=== PATIENT | male | born 1955 | race Caucasian/White ===

== ENCOUNTER 2021-10-12 10:03 | Inpatient (IN) | payer MEDICARE ==
[2021-10-12] MEDS ORDERED: SODIUM CHLORIDE 0.9% 1,000 ML IV STA (10:20)
--- NOTE | 2021-10-12 10:24 | ED ---
General Adult HPI - General Chief complaint: Extremity Problem,Nontraumatic Stated complaint: rt leg pain Time Seen by Provider: 10/12/21 10:06 Source: patient, EMS, RN notes reviewed Mode of arrival: EMS Limitations: no limitations - History of Present Illness Initial comments: Patient is a pleasant 66-year-old male presenting to the emergency Department with right calf pain. Onset of symptoms was around 3 weeks ago. Patient has had decreased appetite over the past 5 weeks. Patient feels dry. Patient feels occasionally short of breath that he relates to feeling dry. Patient denies any dyspnea at this time. A fowler states he noticed color change on the leg the last several days. Patient states the foot does not hurt, just the calf. Patient did not notice swelling. Discomfort does increase with touch and movement. No chest pain. No abdominal or back pain. - Related Data Allergies Allergy/AdvReac Type Severity Reaction Status Date / Time No Known Allergies Allergy Verified 10/12/21 10:21 Review of Systems ROS Statement: Those systems with pertinent positive or pertinent negative responses have been documented in the HPI. ROS Other: All systems not noted in ROS Statement are negative. Constitutional: Denies: fever Eyes: Denies: eye pain ENT: Denies: ear pain Respiratory: Reports: as per HPI. Denies: cough Cardiovascular: Denies: chest pain Endocrine: Denies: fatigue Gastrointestinal: Reports: as per HPI. Denies: abdominal pain Genitourinary: Denies: dysuria Musculoskeletal: Denies: back pain Skin: Reports: as per HPI Past Medical History Past Medical History: No Reported History History of Any Multi-Drug Resistant Organisms: None Reported Additional Past Surgical History / Comment(s): Gallbladder removed. Past Psychological History: No Psychological Hx Reported Smoking Status: Former smoker Past Alcohol Use History: Occasional Past Drug Use History: None Reported General Exam Limitations: no limitations General appearance: alert, in no apparent distress Head exam: Present: normocephalic Eye exam: Present: normal appearance Neck exam: Present: normal inspection Respiratory exam: Present: normal lung sounds bilaterally Cardiovascular Exam: Present: regular rate, normal rhythm Expanded Peripheral pulses: 0: Posterior Tibialis (R), Dorsalis Pedis (R), 1+: Posterior Tibialis (L), Dorsalis Pedis (L), 2+: Femoral (R), Femoral (L) GI/Abdominal exam: Present: soft. Absent: distended, tenderness, pulsatile mass Extremities exam: Present: calf tenderness (Moderate to severe in the right side) Neurological exam: Present: alert. Absent: motor sensory deficit Psychiatric exam: Present: normal affect, normal mood Skin exam: Present: cyanosis (Purplish discoloration right lower leg below the knee) Course Vital Signs 10/12/21 10/12/21 10:05 10:11 Temperature 97.6 F Pulse Rate 115 H 117 H Respiratory 20 20 Rate Blood Pressure 126/107 O2 Sat by Pulse 89 L 92 L Oximetry - Reevaluation(s) Reevaluation #1: 10/12/21 11:17 Case discussed with vascular surgeon Dr. Marino who will come evaluate. EKG Findings - EKG Comments: EKG Findings:: Sinus tach 116. CT 118. QRS 104. QT 380. QTC 528. Normal axis. Incomplete right bundle-branch block. PVCs present. Inferior T wave inversion. Medical Decision Making - Medical Decision Making Case also discussed with Dr. Cooper, who will admit. He agrees with vascular consult also request pulmonary consult - Lab Data Result diagrams: 10/12/21 10:23 10/12/21 10:23 Lab Results 10/12/21 10/12/21 10/12/21 Range/Units 10:23 10:23 10:23 WBC 19.2 H (3.8-10.6) k/uL RBC 5.97 H (4.30-5.90) m/uL Hgb 18.9 H (13.0-17.5) gm/dL Hct 55.0 H (39.0-53.0) % MCV 92.2 (80.0-100.0) fL MCH 31.6 (25.0-35.0) pg MCHC 34.3 (31.0-37.0) g/dL RDW 13.0 (11.5-15.5) % Plt Count 511 H (150-450) k/uL MPV 9.4 Neutrophils % 83 % Lymphocytes % 7 % Monocytes % 7 % Eosinophils % 1 % Basophils % 1 % Neutrophils # 15.9 H (1.3-7.7) k/uL Lymphocytes # 1.4 (1.0-4.8) k/uL Monocytes # 1.3 H (0-1.0) k/uL Eosinophils # 0.2 (0-0.7) k/uL Basophils # 0.2 (0-0.2) k/uL Poikilocytosis Slight PT 12.1 H (9.0-12.0) sec INR 1.2 H (<1.2) APTT 20.7 L (22.0-30.0) sec D-Dimer 5.54 H (<0.60) mg/L FEU Sodium 142 (137-145) mmol/L Potassium 4.6 (3.5-5.1) mmol/L Chloride 107 (98-107) mmol/L Carbon Dioxide 20 L (22-30) mmol/L Anion Gap 15 mmol/L BUN 31 H (9-20) mg/dL Creatinine 1.40 H (0.66-1.25) mg/dL Est GFR (CKD-EPI)AfAm 60 (>60 ml/min/1.73 sqM) Est GFR (CKD-EPI)NonAf 51 (>60 ml/min/1.73 sqM) Glucose 163 H (74-99) mg/dL Calcium 9.8 (8.4-10.2) mg/dL Total Bilirubin 2.0 H (0.2-1.3) mg/dL AST 407 H (17-59) U/L ALT 108 H (4-49) U/L Alkaline Phosphatase 93 (38-126) U/L NT-Pro-B Natriuret Pep pg/mL Total Protein 8.0 (6.3-8.2) g/dL Albumin 4.0 (3.5-5.0) g/dL Coronavirus (PCR) (Not Detectd) Influenza Type A RNA (Not Detectd) Influenza Type B (PCR) (Not Detectd) 10/12/21 10/12/21 10/12/21 Range/Units 10:23 10:23 10:23 WBC (3.8-10.6) k/uL RBC (4.30-5.90) m/uL Hgb (13.0-17.5) gm/dL Hct (39.0-53.0) % MCV (80.0-100.0) fL MCH (25.0-35.0) pg MCHC (31.0-37.0) g/dL RDW (11.5-15.5) % Plt Count (150-450) k/uL MPV Neutrophils % % Lymphocytes % % Monocytes % % Eosinophils % % Basophils % % Neutrophils # (1.3-7.7) k/uL Lymphocytes # (1.0-4.8) k/uL Monocytes # (0-1.0) k/uL Eosinophils # (0-0.7) k/uL Basophils # (0-0.2) k/uL Poikilocytosis PT (9.0-12.0) sec INR (<1.2) APTT (22.0-30.0) sec D-Dimer (<0.60) mg/L FEU Sodium (137-145) mmol/L Potassium (3.5-5.1) mmol/L Chloride (98-107) mmol/L Carbon Dioxide (22-30) mmol/L Anion Gap mmol/L BUN (9-20) mg/dL Creatinine (0.66-1.25) mg/dL Est GFR (CKD-EPI)AfAm (>60 ml/min/1.73 sqM) Est GFR (CKD-EPI)NonAf (>60 ml/min/1.73 sqM) Glucose (74-99) mg/dL Calcium (8.4-10.2) mg/dL Total Bilirubin (0.2-1.3) mg/dL AST (17-59) U/L ALT (4-49) U/L Alkaline Phosphatase (38-126) U/L NT-Pro-B Natriuret Pep 372 pg/mL Total Protein (6.3-8.2) g/dL Albumin (3.5-5.0) g/dL Coronavirus (PCR) Detected A (Not Detectd) Influenza Type A RNA Not Detected (Not Detectd) Influenza Type B (PCR) Not Detected (Not Detectd) Disposition Clinical Impression: COVID-19, Arterial insufficiency Disposition: ADMITTED IP TO THIS HOSP Condition: Serious Is patient prescribed a controlled substance at d/c from ED?: No Referrals: Stefano Rice DO [Primary Care Provider] - 1-2 days Decision Time: 11:24
[2021-10-12 10:40] LABS: Basophils # (A) 0.2 k/uL (0-0.2); Basophils % (A) 1 %; Eosinophils # (A) 0.2 k/uL (0-0.7); Eosinophils % (A) 1 %; HGB 18.9 gm/dL (13.0-17.5); Lymphocytes # (A) 1.4 k/uL (1.0-4.8); Lymphocytes % (A) 7 %; MCH 31.6 pg (25.0-35.0); MCHC 34.3 g/dL (31.0-37.0); MCV 92.2 fL (80.0-100.0); Mean Platelet Volume 9.4; Monocytes # (A) 1.3 k/uL (0-1.0); Monocytes % (A) 7 %; Neutrophils # (A) 15.9 k/uL (1.3-7.7); Neutrophils % (A) 83 %; Platelet Count 511 k/uL (150-450); Poikilocytosis Slight; RBC 5.97 m/uL (4.30-5.90); WBC 19.2 k/uL (3.8-10.6)
[2021-10-12 11:01] LABS: Calcium 9.8 mg/dL (8.4-10.2); Potassium 4.6 mmol/L (3.5-5.1)
[2021-10-12 11:03] LABS: INR 1.2 (<1.2); Prothrombin Time 12.1 sec (9.0-12.0)
[2021-10-12 11:09] LABS: Partial Thromboplastin Time 20.7 sec (22.0-30.0)
--- NOTE | 2021-10-12 11:19 | XR ---
EXAMINATION TYPE: XR chest 2V DATE OF EXAM: 10/12/2021 COMPARISON: None HISTORY: 66 year-old male shortness of breath, difficulty breathing, lower extremity swelling. TECHNIQUE: AP and lateral views FINDINGS: Heart is upper limits of normal in size. Patchy peripheral opacities. Posterior basilar opacity on th e lateral view. No pleural effusion. IMPRESSION: 1. Borderline heart size. 2. There are patchy peripheral opacities and also focal posterior basilar opacity. Correlate for poss ible COVID pneumonia.
[2021-10-12] MEDS ORDERED: HEPARIN SODIUM 1,000 UN/ML (10ML VL) IV PRN (11:29)
[2021-10-12] MEDS ORDERED: HEPARIN SODIUM 1,000 UN/ML (10ML VL) IV ONE (11:29)
[2021-10-12] MEDS ORDERED: NALOXONE 0.4 MG/ML 1 ML VIAL IV PRN (11:31)
--- NOTE | 2021-10-12 11:46 | US ---
EXAMINATION TYPE: US venous doppler duplex LE RT DATE OF EXAM: 10/12/2021 11:30 AM COMPARISON: NONE CLINICAL HISTORY: 66-year-old male with pain and discoloration of the right lower extremity. COVID-19 SIDE PERFORMED: Right TECHNIQUE: The lower extremity deep venous system is examined utilizing real time linear array sonog ruslan with graded compression, doppler sonography and color-flow sonography. FINDINGS: VESSELS IMAGED: Common Femoral Vein Deep Femoral Vein Greater Saphenous Vein * Femoral Vein Popliteal Vein Small Saphenous Vein * Proximal Calf Veins (* superficial vessels) Right Leg: Negative for DVT Under Water Assistant notes: Difficult exam due to the patient having difficulty in moving as well as extreme p ain in the extremity. IMPRESSION: Technical exam limitations due to patient movement and pain within the extremity. No DVT visualized i n the right lower extremity from the groin down to the upper calf.
[2021-10-12] MEDS: HEPARIN SOD,PORK IN 0.45% NACL 25,000 UNIT in 0.45% NACL 1 250ML.BAG IV SCH ×2 (11:57→14:07)
--- NOTE | 2021-10-12 11:57 | P.GSCN ---
History of Present Illness Consult date: 10/12/21 History of present illness: Patient is a 66-year-old male who presented to the ER after the urging of his daughter for increasing right lower extremity pain. He states for approximately 2-3 weeks she's been having some increasing pain in his right lower extremity in the past few days he's had significant coloration change. He has pain in his calf. He cannot really feel his foot. He denies any history of arterial disease or surgical interventions in this regard. He does see a doctor relatively regularly. He does not take any home medications nor does he say he is supposed to be on anything. He has had decreased appetite in the past many weeks with shortness of breath as well Past Medical History Past Medical History: No Reported History History of Any Multi-Drug Resistant Organisms: None Reported Additional Past Surgical History / Comment(s): Gallbladder removed. Past Psychological History: No Psychological Hx Reported Smoking Status: Former smoker Past Alcohol Use History: Occasional Past Drug Use History: None Reported Medications and Allergies Home Medications Medication Instructions Recorded Confirmed Type Calcium Carbonate [Tums] 500 - 1,000 mg PO QID PRN 10/12/21 10/12/21 History Multivit-Min/Folic/Vit K/Lycop 1 tab PO DAILY 10/12/21 10/12/21 History [Men's Multivitamin Tablet] Otc Allergy Med (Unknown) 1 tab PO BID 10/12/21 10/12/21 History Allergies Allergy/AdvReac Type Severity Reaction Status Date / Time No Known Allergies Allergy Verified 10/12/21 11:42 Surgical - Exam Vital Signs Temp Pulse Resp BP Pulse Ox 97.6 F 115 H 20 126/107 89 L 10/12/21 10:05 10/12/21 10:05 10/12/21 10:05 10/12/21 10:05 10/12/21 10:05 Gen. is a pleasant cooperative male in no acute distress. HEENT is normocephalic, atraumatic, extraocular motion intact. Mucous membranes are slightly dry. Neck is supple. Trachea is midline. Heart appears tachycardic but relatively regular. Lungs are clear bilaterally. Abdomen is soft, nontender nondistended. Upper and left lower extremity show no clubbing, cyanosis or edema. Palpable radialBilaterally, palpable femoral Poplitealdorsalis pedis and posterior tibial pulsesOn the left. Palpable right femoral pulse. No palpable popliteal or pedal pulses. The right lower extremity from the knee down is cool, mottled. He is able to move his ankle. 5 motor function is diminished. Sensation diminished. He cannot feel palpation of the top of the foot. He does have tenderness to palpation of his calf. Compartments remained soft Results Venous duplex of the right lower extremity shows no DVT - Labs 10/12/21 10:23 10/12/21 10:23 Abnormal Lab Results - Last 24 Hours (Table) 10/12/21 10/12/21 10/12/21 Range/Units 10:23 10:23 10:23 WBC 19.2 H (3.8-10.6) k/uL RBC 5.97 H (4.30-5.90) m/uL Hgb 18.9 H (13.0-17.5) gm/dL Hct 55.0 H (39.0-53.0) % Plt Count 511 H (150-450) k/uL Neutrophils # 15.9 H (1.3-7.7) k/uL Monocytes # 1.3 H (0-1.0) k/uL PT 12.1 H (9.0-12.0) sec INR 1.2 H (<1.2) APTT 20.7 L (22.0-30.0) sec D-Dimer 5.54 H (<0.60) mg/L FEU Carbon Dioxide 20 L (22-30) mmol/L BUN 31 H (9-20) mg/dL Creatinine 1.40 H (0.66-1.25) mg/dL Glucose 163 H (74-99) mg/dL Total Bilirubin 2.0 H (0.2-1.3) mg/dL AST 407 H (17-59) U/L ALT 108 H (4-49) U/L Coronavirus (PCR) (Not Detectd) 10/12/21 Range/Units 10:23 WBC (3.8-10.6) k/uL RBC (4.30-5.90) m/uL Hgb (13.0-17.5) gm/dL Hct (39.0-53.0) % Plt Count (150-450) k/uL Neutrophils # (1.3-7.7) k/uL Monocytes # (0-1.0) k/uL PT (9.0-12.0) sec INR (<1.2) APTT (22.0-30.0) sec D-Dimer (<0.60) mg/L FEU Carbon Dioxide (22-30) mmol/L BUN (9-20) mg/dL Creatinine (0.66-1.25) mg/dL Glucose (74-99) mg/dL Total Bilirubin (0.2-1.3) mg/dL AST (17-59) U/L ALT (4-49) U/L Coronavirus (PCR) Detected A (Not Detectd) Diabetes panel 10/12/21 Range/Units 10:23 Sodium 142 (137-145) mmol/L Potassium 4.6 (3.5-5.1) mmol/L Chloride 107 (98-107) mmol/L Carbon Dioxide 20 L (22-30) mmol/L BUN 31 H (9-20) mg/dL Creatinine 1.40 H (0.66-1.25) mg/dL Glucose 163 H (74-99) mg/dL Calcium 9.8 (8.4-10.2) mg/dL AST 407 H (17-59) U/L ALT 108 H (4-49) U/L Alkaline Phosphatase 93 (38-126) U/L Total Protein 8.0 (6.3-8.2) g/dL Albumin 4.0 (3.5-5.0) g/dL Calcium panel 10/12/21 Range/Units 10:23 Calcium 9.8 (8.4-10.2) mg/dL Albumin 4.0 (3.5-5.0) g/dL Pituitary panel 10/12/21 Range/Units 10:23 Sodium 142 (137-145) mmol/L Potassium 4.6 (3.5-5.1) mmol/L Chloride 107 (98-107) mmol/L Carbon Dioxide 20 L (22-30) mmol/L BUN 31 H (9-20) mg/dL Creatinine 1.40 H (0.66-1.25) mg/dL Glucose 163 H (74-99) mg/dL Calcium 9.8 (8.4-10.2) mg/dL Adrenal panel 10/12/21 Range/Units 10:23 Sodium 142 (137-145) mmol/L Potassium 4.6 (3.5-5.1) mmol/L Chloride 107 (98-107) mmol/L Carbon Dioxide 20 L (22-30) mmol/L BUN 31 H (9-20) mg/dL Creatinine 1.40 H (0.66-1.25) mg/dL Glucose 163 H (74-99) mg/dL Calcium 9.8 (8.4-10.2) mg/dL Total Bilirubin 2.0 H (0.2-1.3) mg/dL AST 407 H (17-59) U/L ALT 108 H (4-49) U/L Alkaline Phosphatase 93 (38-126) U/L Total Protein 8.0 (6.3-8.2) g/dL Albumin 4.0 (3.5-5.0) g/dL Assessment and Plan Assessment: [place] 2 Acute Limb ischemia on the right, likely the distal SFA/popliteal/Infrapopliteal artery Positive for coronavirus Plan: Long discussion had with the patient is daughter at the bedside, likely arterial occlusion due to coronavirus. We will check for arrhythmia, atrial fibrillation for rule out. We will plan to take him urgently to the [facility] for TPA thrombo lysis. Risks and benefits were both discussed as well as the need for close monitoring and possible further surgical interventions. We also discussed the significance threatened limb and the possibility of needing an amputation but at this time we'll attempt aggressive revascularization. They seemingly understand and are willing to proceed as such. He will need ICU bed and continued aggressive supportive care otherwise. We also discussed his CODE STATUS, he would like to be full code at this time, he would like everything done to preserve his life
[2021-10-12] MEDS: DEXAMETHASONE SOD PHOSPHATE 10 MG/ML 1 ML VIAL IVP SCH (11:59)
[2021-10-12] MEDS: SODIUM CHLORIDE 0.9% 1,000 ML IV SCH ×2 (11:59→14:06)
[2021-10-12] MEDS ORDERED: ALTEPLASE 2 MG VIAL (CATHFLO) IV ONE (12:05)
[2021-10-12] MEDS ORDERED: IV FLUID CONTINUATION 950 ML IV ONE (12:20)
[2021-10-12] MEDS ORDERED: LIDOCAINE 1% INJ 10MG/ML (20 ML MDV) SQ ONE (12:31)
[2021-10-12] MEDS ORDERED: fentaNYL (PF) 50 MCG/ML 2 ML AMP ONE (13:08)
[2021-10-12] MEDS: fentaNYL (PF) 50 MCG/ML 2 ML AMP IV ONE ×2 (13:10→13:21)
[2021-10-12] MEDS ORDERED: ALTEPLASE BOLUS 1 MG/1 ML SYRINGE IVP ONE (13:25)
--- NOTE | 2021-10-12 14:02 | IR ---
EXAMINATION TYPE: IR transcath infusion therapy DATE OF EXAM: 10/12/2021 COMPARISON: NONE HISTORY: Fluoroscopy time. Fluoroscopy was provided to the referring clinician.
[2021-10-12] MEDS: ALTEPLASE 10 MG in SODIUM CHLORIDE 0.9% 100 ML IV ONE ×2 (14:06→21:39)
[2021-10-12] MEDS: ASCORBIC ACID 500 MG TAB PO SCH ×2 (14:10→20:26)
[2021-10-12] MEDS: ZINC SULFATE 220 MG CAP PO SCH (14:10)
[2021-10-12] MEDS: CHOLECALCIFEROL 25 MCG (1000 IU) TABLET PO SCH (14:10)
[2021-10-12] MEDS ORDERED: ONDANSETRON 4 MG/2 ML VIAL IVP PRN (14:22)
--- NOTE | 2021-10-12 14:22 | P.OP ---
Date of Procedure: 10/12/21 Description of Procedure: Preoperative diagnosis: acute limb ischemia right lower extremity, COVID + Postoperative diagnosis: Same, occlusion of the superficial femoral artery down the entirety of the leg Procedure: [#1 ultrasound guided left common femoral artery access #2 left iliofemoral angiogram #3 right lower extremity angiogram #4 initiation of thrombolysis] Surgeon: April Marino D.O. EBL: [Less than 10 mL] IV fluids: [See records] Urine output: [Not measured] Drains: [None] Complications: [None immediately apparent] Condition: [Stable to critical] Operative indication and findings: [Patient is a 66-year-old on vaccinated male who presented to the ER after 5 or 6 weeks of malaise, decreased appetite and worsening right lower extremity pain. He states that his right lower extremity began having pain about 3 weeks ago and then over the weekend had increasing color changes in coolness. He finally presented at the urging of his daughter. He was found to be positive for coronavirus. He had palpable femoral pulses bilaterally. On the left he had a palpable popliteal, dorsalis pedis and posterior tibial pulse. He had no palpable popliteal or pedal pulses on the right. For this was operative thrombolysis given he still move his ankle although he did have some fine motor changes. Risks and benefits were discussed. The family understood and were willing to proceed as such] Procedure in detail: [The patient was taken to the special suite and placed in supine position. Bilateral groins are prepped and draped in usual sterile fashion. A preprocedure timeout was performed, all parties are in agreement. Using ultrasound left common femoral artery was identified. The skin overlying was anesthetized 1% lidocaine plain. Using a micro-access needle the artery was accessed. Seldinger technique was used and a 6-German sheath was placed. A left iliofemoral angiogram was performed showing no evidence of occlusion or significant stenosis. Catheters wires were used to access the right iliac system. There was an acute angle in the bifurcation causing some difficulty. The right iliac system was accessed an angiogram was performed. This revealed a patent iliac, external iliac and common femoral artery. The internal iliac appeared occluded. The profunda seemed widely patent and very robust in size. There was no visualization of any blood flow beyond the superficial femoral artery takeoff. The superficial femoral artery, the popliteal and tibial vessels all appeared occluded no evidence of reconstitution. Catheters and wires were used and subsequently a long 6-German sheath was placed into the external iliac artery. Catheters and wires and used to cross the superficial femoral artery, there was a small area of possible filling via collateral at the adductor canal. When this was visualized there were branch and collateral vessels appearing to arise from this area confirming some degree of luminal gain. It was decided to place an EKOS thrombolysis catheter was placed. The sheath was flushed and sutured in place. Dressings were placed. The patient was of the machine. He was allowed to transfer to the ICU in stable condition for monitor thrombolysis]
[2021-10-12 15:17] LABS: Basophils # (A) 0.1 k/uL (0-0.2); Basophils % (A) 1 %; Eosinophils # (A) 0.1 k/uL (0-0.7); Eosinophils % (A) 1 %; HCT 51.4 % (39.0-53.0); HGB 17.3 gm/dL (13.0-17.5); Lymphocytes # (A) 0.7 k/uL (1.0-4.8); Lymphocytes % (A) 4 %; MCH 31.4 pg (25.0-35.0); MCHC 33.8 g/dL (31.0-37.0); Mean Platelet Volume 9.3; Monocytes # (A) 0.7 k/uL (0-1.0); Monocytes % (A) 4 %; Neutrophils # (A) 17.2 k/uL (1.3-7.7); Neutrophils % (A) 91 %; Platelet Count 422 k/uL (150-450); Poikilocytosis Slight; RBC 5.53 m/uL (4.30-5.90)
[2021-10-12 15:25] LABS: INR 1.3 (<1.2); Prothrombin Time 13.2 sec (9.0-12.0)
[2021-10-12 15:29] LABS: Potassium 4.4 mmol/L (3.5-5.1)
--- NOTE | 2021-10-12 16:24 | P.CNPUL ---
History of Present Illness Consult date: 10/12/21 Reason for consult: pneumonia Chief complaint: Right lower extremity pain History of present illness: This is a 66-year-old white male, no major medical illnesses, patient is not vaccinated. Patient has been sick at home for the last 3 weeks. Symptoms have been mostly intermittent cough, shortness of breath, and over the last 2 weeks has been noticing increased pain and swelling in the right lower extremity. In the past few days, patient has been noticing bluish discoloration of the foot. And he was also experiencing pain in the calf region. Patient was brought into the ER, he was found to have positive COVID-19 PCR. Chest x-ray showed patchy peripheral opacities consistent with COVID-19 pneumonia patient was also found to have acute limb ischemia of the right lower extremity consistent with superficial femoral artery thrombosis requiring surgical intervention, patient was seen by vascular surgery on consultation, underwent left iliofemoral angiogram, right lower extremity angiogram and initiation of thrombolysis hoping to salvage the right foot. Postoperatively, patient was admitted to the ICU, and I was asked to see him on consultation. Patient is on 4 L nasal cannula O2 saturation 94%, he is not a great historian, patient was placed on the COVID-19 cocktail, and obviously he is out of the window for Remdesivir, and he does not qualify for Baricitinib. She was noted to have leukocytosis with WBC count of 19.0 hemoglobin of 17.3 d-dimer was 5.54 normal electrolytes except for low bicarb of 17 and elevated creatinine of 1.40 consistent with acute kidney injury, lactic acid was 3.6 improved with hydration went down to 1.7. Liver enzymes were also noted to be elevated with bilirubin of 2.0 AST of 407 and ALT of 108. Review of Systems Constitutional: Weakness fatigue fever HEENT: Negative Pulmonary: Cough and shortness of breath Cardiac: Negative GI: Negative Genitourinary: Negative Musculoskeletal right lower extremity pain and swelling as well as discoloration refer to HPI Endocrine: Negative Hematologic: Negative Psychiatric: Negative Skin: Negative Neurologic: Past Medical History Past Medical History: Prostate Disorder Additional Past Medical History / Comment(s): Pt tested covid + at [facility] ER on 10/12/21, pt may have had pneumonia years ago. History of Any Multi-Drug Resistant Organisms: None Reported Past Surgical History: Cholecystectomy Additional Past Surgical History / Comment(s): R knee arthroscopy, colonoscopy Past Anesthesia/Blood Transfusion Reactions: No Reported Reaction Smoking Status: Former smoker - Past Family History Father Family Medical History: No Reported History Additional Family Medical History / Comment(s): Father was healthy Mother Family Medical History: No Reported History Additional Family Medical History / Comment(s): Mother was healthy Medications and Allergies Home Medications Medication Instructions Recorded Confirmed Type Calcium Carbonate [Tums] 500 - 1,000 mg PO QID PRN 10/12/21 10/12/21 History Multivit-Min/Folic/Vit K/Lycop 1 tab PO DAILY 10/12/21 10/12/21 History [Men's Multivitamin Tablet] Otc Allergy Med (Unknown) 1 tab PO BID 10/12/21 10/12/21 History Allergies Allergy/AdvReac Type Severity Reaction Status Date / Time No Known Allergies Allergy Verified 10/12/21 11:42 Physical Exam Vitals: Vital Signs Temp Pulse Resp BP Pulse Ox 10/12/21 16:00 98 F 107 H 20 188/79 94 L 10/12/21 15:30 102 H 23 163/88 94 L 10/12/21 15:15 106 H 27 H 157/89 93 L 10/12/21 15:00 106 H 24 141/107 94 L 10/12/21 14:45 107 H 21 143/114 94 L 10/12/21 14:30 105 H 15 165/88 93 L 10/12/21 14:15 108 H 11 L 166/87 90 L 10/12/21 14:00 104 H 19 171/90 89 L 10/12/21 13:48 108 H 22 89 L 10/12/21 12:00 109 H 18 139/78 94 L 10/12/21 10:11 117 H 20 92 L 10/12/21 10:05 97.6 F 115 H 20 126/107 89 L Intake and Output 10/12/21 10/12/21 10/12/21 06:59 14:59 22:59 Intake Total 220 140 Balance 220 140 Intake: IV 220 140 Sodium Chloride 0.9% 1, 70 140 000 ml @ 70 mls/hr IV . [id number] [facility] Rx#:[id number] Other: Voiding Method Urinal Urinal Weight 108.862 kg Physical Exam revealed a 66-year-old white male on few liters nasal cannula, in no distress. Head: Atraumatic, normocephalic. HEENT:[Neck is supple.] [No neck masses.] [No thyromegaly.] [No JVD.] Chest: [Symmetrical chest expansion, crackles at the bases. Cardiac Exam: [Normal S1 and S2, no S3 gallop, no murmur.] Abdomen: [Soft, nontender, no megaly, no rebound, no guarding, normal bowel sounds.] Extremities: Right foot is noted to be bluish The right lower extremity from the knee down is cool, mottled. He is able to move his ankle. Neurological Exam: [No focal neurologic deficit.] Alert oriented 3 Psychiatric: Normal mood blunt affect, normal mental status examination. Results - Laboratory Findings CBC and BMP: 10/12/21 15:01 10/12/21 15:01 PT/INR, D-dimer PT 13.2 sec (9.0-12.0) H 10/12/21 15:01 INR 1.3 (<1.2) H 10/12/21 15:01 D-Dimer 5.54 mg/L FEU (<0.60) H 10/12/21 10:23 Abnormal lab findings: Abnormal Labs 10/12/21 10/12/21 10/12/21 10:23 10:23 10:23 WBC 19.2 H RBC 5.97 H Hgb 18.9 H Hct 55.0 H Plt Count 511 H Neutrophils # 15.9 H Lymphocytes # Monocytes # 1.3 H PT 12.1 H INR 1.2 H APTT 20.7 L Fibrinogen D-Dimer 5.54 H Chloride Carbon Dioxide 20 L BUN 31 H Creatinine 1.40 H Glucose 163 H Plasma Lactic Acid Yonatan Total Bilirubin 2.0 H AST 407 H ALT 108 H Coronavirus (PCR) 10/12/21 10/12/21 10/12/21 10:23 10:23 11:38 WBC RBC Hgb Hct Plt Count Neutrophils # Lymphocytes # Monocytes # PT INR APTT Fibrinogen 521 H D-Dimer Chloride Carbon Dioxide BUN Creatinine Glucose Plasma Lactic Acid Yonatan 3.6 H* Total Bilirubin AST ALT Coronavirus (PCR) Detected A 10/12/21 10/12/21 10/12/21 15:01 15:01 15:01 WBC 19.0 H RBC Hgb Hct Plt Count Neutrophils # 17.2 H Lymphocytes # 0.7 L Monocytes # PT 13.2 H INR 1.3 H APTT Fibrinogen D-Dimer Chloride 109 H Carbon Dioxide 17 L BUN 29 H Creatinine Glucose 178 H Plasma Lactic Acid Yonatan Total Bilirubin AST ALT Coronavirus (PCR) - Diagnostic Findings Chest x-ray: image reviewed (As noted in HPI) Assessment and Plan Assessment: Impression: Acute right lower extremity ischemia secondary to arterial thrombosis, patient is status post left iliofemoral angiogram, right lower extremity angiogram and presently on thrombolysis. Acute hypoxic respiratory failure secondary to COVID-19 pneumonia Hypercoagulable state and arterial thrombosis secondary to COVID-19 pneumonia/infection Acute lactic acidosis secondary to limb ischemia Acute kidney injury , improving with hydration. Recommendation: Continue thrombolysis Patient placed on the COVID-19 cocktail. Continue anticoagulation therapy as per vascular surgery on the case. Patient is out of the window for Remdesivir, and he is not a candidate for Baricitinib at this point in time. We will continue to monitor the patient in the ICU GI and DVT prophylaxis Will follow. Time with Patient: Greater than 30
[2021-10-12] MEDS: HYDROmorphone 1 MG/ML 1 ML SYRINGE IVP PRN ×2 (16:51→21:59)
[2021-10-12 20:28] LABS: Basophils # (A) 0.1 k/uL (0-0.2); Basophils % (A) 0 %; Eosinophils % (A) 0 %; HCT 52.2 % (39.0-53.0); HGB 17.5 gm/dL (13.0-17.5); Hypochromasia Slight; Lymphocytes # (A) 0.8 k/uL (1.0-4.8); Lymphocytes % (A) 4 %; MCH 31.7 pg (25.0-35.0); MCHC 33.4 g/dL (31.0-37.0); MCV 94.9 fL (80.0-100.0); Mean Platelet Volume 8.8; Monocytes % (A) 5 %; Neutrophils % (A) 89 %; Platelet Count 390 k/uL (150-450); Poikilocytosis Slight; RDW 12.9 % (11.5-15.5); WBC 19.2 k/uL (3.8-10.6)
--- NOTE | 2021-10-12 22:45 | P.HPIM ---
History of Present Illness H&P Date: 10/12/21 Chief Complaint: Right leg pain This is a 66-year-old patient who follows Dr. Stefano Miguel. He presented to ER earlier today with a right calf pain. Symptoms have been coming on for about 3 weeks. Patient is also had decreased appetite for some time. Complaint of feeling dry in the ER. Some shortness of breath. He did also had discoloration to the right leg for several days. Having pain in the calf. No chest pain. ER physician had called me thinking this was an arterial compromise. Dr. Marino from vascular was consulted. The patient down to the operating room. Patient was discovered to have occlusion of the superficial femoral artery down to the integrity of the leg. Left common femoral artery was accessed. Angiogram was done. And thrombolysis was started. Patient's currently getting TPN heparin drip. In the ICU. Patient is received pain medications and is rather lethargic. Not really able to give much of a history currently. According to the nurse doesn't Doppler in the left leg. Dopplers also present in the right leg up to the knee not below the knee. Patient tested positive for COVID in the ER. Review of systems cannot be obtained as patient is very sleepy lethargic from medications Past medical history to include: Prostate disorder Social history: Patient started smoking as a teen and stopped in 1995. No alcohol. [place]. 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 Family history: Reviewed, noncontributory to presentation Physical examination: VITAL SIGNS: 98.6, 1 or 2, 14, 144/79, 93% on nasal cannula GENERAL: BMI 33.5, laying in bed lethargic arousable. EYES: Pupils equal. Conjunctiva normal. HEENT: External appearance of nose and ears normal, oral cavity grossly normal. NECK: JVD not raised; masses not palpable. HEART: First and second heart sounds are normal; no edema. LUNGS: Respiratory rate normal; decreased breath sounds. ABDOMEN: Soft, nontender, liver spleen not palpable, no masses palpable. Patient has EKOS in the left groin. Marino catheter PSYCH: Unable to assess, sedated l. EXTREMITY: Mottling of the right lower limb below the knee down to the foot. Not able to get a pulse NEUROLOGICAL: [Cranial nerves grossly intact; no facial asymmetry, LYMPHATICS: No lymph nodes palpable in the axilla and neck INVESTIGATIONS, reviewed in the clinical context: White count 19.2 hemoglobin 18.9 platelets 511 2142 BUN 31 creatinine 1.40, repeat 1.19 Lactic acid 3.6 AST 407 ALT 108 Pro-calcitonin 0.14 Coronavirus [PCR]: Detected EKG tracing personally reviewed by me-normal sinus rhythm. Right bundle branch block. ST-T wave changes. PVCs. Assessment and plan: -This is a patient who presents with pain in the right calf which is going on for a few days progressively getting worse. Appears to have had acute on chronic arterial occlusion. Especially of the superficial femoral artery. Patient has aEKOS placed through the left groin. Getting TPA and heparin.. Patient being followed by vascular surgeon Dr. Marino. -IV heparin and TPA infusion Follow CBC -Right bundle branch block pattern -Metabolic acidosis Sodium bicarbonate by mouth -Acute kidney injury, possibly ATN IV fluids. -Hepatitis, chronicity unknown Acute hepatitis panel. Repeat labs. -Acute hypoxic respiratory failure from COVID 19 Pulse ox was 89% on room air on presentation. IV dexamethasone -Acute COVID 19 pneumonitis Vitamin C vitamin D. Primary consultation Dexamethasone. Vitamin C. Vitamin D. Consultation to pulmonary and vascular. Patient on IV heparin and TPA dripCarlos A Degroot. Liver ultrasound. 2-D echo. IV fluids. Repeat CMP, CBC. Acute hepatitis panel Patient currently in the ICU. Given the complexity and severity of patient's condition expect the patient to be in the hospital at least for 2 overnights Past Medical History Past Medical History: Prostate Disorder Additional Past Medical History / Comment(s): [facility], pt may have had pneumonia years ago. History of Any Multi-Drug Resistant Organisms: None Reported Past Surgical History: Cholecystectomy Additional Past Surgical History / Comment(s): R knee arthroscopy, colonoscopy Past Anesthesia/Blood Transfusion Reactions: No Reported Reaction Smoking Status: Former smoker - Past Family History Father Family Medical History: No Reported History Additional Family Medical History / Comment(s): Father was healthy Mother Family Medical History: No Reported History Additional Family Medical History / Comment(s): Mother was healthy Medications and Allergies Home Medications Medication Instructions Recorded Confirmed Type Calcium Carbonate [Tums] 500 - 1,000 mg PO QID PRN 10/12/21 10/12/21 History Multivit-Min/Folic/Vit K/Lycop 1 tab PO DAILY 10/12/21 10/12/21 History [Men's Multivitamin Tablet] Otc Allergy Med (Unknown) 1 tab PO BID 10/12/21 10/12/21 History Allergies Allergy/AdvReac Type Severity Reaction Status Date / Time No Known Allergies Allergy Verified 10/12/21 11:42 Physical Exam Vitals: Vital Signs Temp Pulse Resp BP Pulse Ox 10/12/21 22:00 105 H 28 H 157/87 91 L 10/12/21 21:30 107 H 10 L 153/82 91 L 10/12/21 21:00 99 16 160/92 92 L 10/12/21 20:30 90 14 185/99 93 L 10/12/21 20:00 98.6 F 102 H 14 144/79 93 L 10/12/21 19:30 93 12 134/91 93 L 10/12/21 19:00 97 13 160/76 92 L 10/12/21 18:30 92 18 148/83 90 L 10/12/21 18:00 101 H 12 141/80 93 L 10/12/21 17:30 96 12 150/84 93 L 10/12/21 17:00 98 7 L 154/102 94 L 10/12/21 16:30 6 L 174/97 94 L 10/12/21 16:00 98 F 107 H 20 188/79 94 L 10/12/21 15:30 102 H 23 163/88 94 L 10/12/21 15:15 106 H 27 H 157/89 93 L 10/12/21 15:00 106 H 24 141/107 94 L 10/12/21 14:45 107 H 21 143/114 94 L 10/12/21 14:30 105 H 15 165/88 93 L 10/12/21 14:15 108 H 11 L 166/87 90 L 10/12/21 14:00 104 H 19 171/90 89 L 10/12/21 13:48 108 H 22 89 L 10/12/21 12:00 109 H 18 139/78 94 L 10/12/21 10:11 117 H 20 92 L 10/12/21 10:05 97.6 F 115 H 20 126/107 89 L Intake and Output 12/28/21 12/28/21 12/28/21 06:59 14:59 22:59 Intake Total 220 565.5 Output Total 450 Balance 220 115.5 Intake: IV 220 490 Sodium Chloride 0.9% 1, 70 490 000 ml @ 70 mls/hr IV . [id number] [facility] Rx#:[id number] Intake, IV Titration 75.5 Amount Alteplase 10 mg In Sodium 75.5 Chloride 0.9% 100 ml @ 1 MG/HR 10 mls/hr IV .Q10H [facility] Rx#:[id number] Output: Urine 450 Other: Voiding Method Urinal Urinal Weight 108.862 kg Results CBC & Chem 7: 10/12/21 20:17 10/12/21 15:01 Labs: Abnormal Lab Results - Last 24 Hours (Table) 10/12/21 10/12/21 10/12/21 Range/Units 10:23 10:23 10:23 WBC 19.2 H (3.8-10.6) k/uL RBC 5.97 H (4.30-5.90) m/uL Hgb 18.9 H (13.0-17.5) gm/dL Hct 55.0 H (39.0-53.0) % Plt Count 511 H (150-450) k/uL Neutrophils # 15.9 H (1.3-7.7) k/uL Lymphocytes # (1.0-4.8) k/uL Monocytes # 1.3 H (0-1.0) k/uL PT 12.1 H (9.0-12.0) sec INR 1.2 H (<1.2) APTT 20.7 L (22.0-30.0) sec Fibrinogen (200-500) mg/dL D-Dimer 5.54 H (<0.60) mg/L FEU Chloride (98-107) mmol/L Carbon Dioxide 20 L (22-30) mmol/L BUN 31 H (9-20) mg/dL Creatinine 1.40 H (0.66-1.25) mg/dL Glucose 163 H (74-99) mg/dL Plasma Lactic Acid Yonatan (0.7-2.0) mmol/L Total Bilirubin 2.0 H (0.2-1.3) mg/dL AST 407 H (17-59) U/L ALT 108 H (4-49) U/L Procalcitonin (0.02-0.09) ng/mL Coronavirus (PCR) (Not Detectd) 10/12/21 10/12/21 10/12/21 Range/Units 10:23 10:23 11:38 WBC (3.8-10.6) k/uL RBC (4.30-5.90) m/uL Hgb (13.0-17.5) gm/dL Hct (39.0-53.0) % Plt Count (150-450) k/uL Neutrophils # (1.3-7.7) k/uL Lymphocytes # (1.0-4.8) k/uL Monocytes # (0-1.0) k/uL PT (9.0-12.0) sec INR (<1.2) APTT (22.0-30.0) sec Fibrinogen 521 H (200-500) mg/dL D-Dimer (<0.60) mg/L FEU Chloride (98-107) mmol/L Carbon Dioxide (22-30) mmol/L BUN (9-20) mg/dL Creatinine (0.66-1.25) mg/dL Glucose (74-99) mg/dL Plasma Lactic Acid Yonatan 3.6 H* (0.7-2.0) mmol/L Total Bilirubin (0.2-1.3) mg/dL AST (17-59) U/L ALT (4-49) U/L Procalcitonin (0.02-0.09) ng/mL Coronavirus (PCR) Detected A (Not Detectd) 10/12/21 10/12/21 10/12/21 Range/Units 15:01 15:01 15:01 WBC (3.8-10.6) k/uL RBC (4.30-5.90) m/uL Hgb (13.0-17.5) gm/dL Hct (39.0-53.0) % Plt Count (150-450) k/uL Neutrophils # (1.3-7.7) k/uL Lymphocytes # (1.0-4.8) k/uL Monocytes # (0-1.0) k/uL PT 13.2 H (9.0-12.0) sec INR 1.3 H (<1.2) APTT (22.0-30.0) sec Fibrinogen (200-500) mg/dL D-Dimer (<0.60) mg/L FEU Chloride 109 H (98-107) mmol/L Carbon Dioxide 17 L (22-30) mmol/L BUN 29 H (9-20) mg/dL Creatinine (0.66-1.25) mg/dL Glucose 178 H (74-99) mg/dL Plasma Lactic Acid Yonatan (0.7-2.0) mmol/L Total Bilirubin (0.2-1.3) mg/dL AST (17-59) U/L ALT (4-49) U/L Procalcitonin 0.14 H (0.02-0.09) ng/mL Coronavirus (PCR) (Not Detectd) 10/12/21 10/12/21 Range/Units 15:01 20:17 WBC 19.0 H 19.2 H (3.8-10.6) k/uL RBC (4.30-5.90) m/uL Hgb (13.0-17.5) gm/dL Hct (39.0-53.0) % Plt Count (150-450) k/uL Neutrophils # 17.2 H 17.0 H (1.3-7.7) k/uL Lymphocytes # 0.7 L 0.8 L (1.0-4.8) k/uL Monocytes # (0-1.0) k/uL PT (9.0-12.0) sec INR (<1.2) APTT (22.0-30.0) sec Fibrinogen (200-500) mg/dL D-Dimer (<0.60) mg/L FEU Chloride (98-107) mmol/L Carbon Dioxide (22-30) mmol/L BUN (9-20) mg/dL Creatinine (0.66-1.25) mg/dL Glucose (74-99) mg/dL Plasma Lactic Acid Yonatan (0.7-2.0) mmol/L Total Bilirubin (0.2-1.3) mg/dL AST (17-59) U/L ALT (4-49) U/L Procalcitonin (0.02-0.09) ng/mL Coronavirus (PCR) (Not Detectd) Thrombosis Risk Factor Assmnt - Choose All That Apply Any of the Below Risk Factors Present?: Yes Each Factor Represents 1 point: Obesity (BMI >25) Other Risk Factors: Yes Each Risk Factor Represents 2 Points: Age 61-74 years Other congenital or acquired thrombophilia - If yes, enter type in comment: No Thrombosis Risk Factor Assessment Total Risk Factor Score: 3 Thrombosis Risk Factor Assessment Level: Moderate Risk
[2021-10-13] MEDS: SODIUM CHLORIDE 0.9% 1,000 ML IV SCH ×6 (01:08→19:35)
[2021-10-13] MEDS: HYDROmorphone 1 MG/ML 1 ML SYRINGE IVP PRN ×2 (03:28→08:34)
[2021-10-13 03:31] LABS: Basophils # (A) 0.1 k/uL (0-0.2); Basophils % (A) 1 %; Eosinophils % (A) 0 %; HCT 49.5 % (39.0-53.0); HGB 16.3 gm/dL (13.0-17.5); Hypochromasia Slight; Lymphocytes # (A) 0.8 k/uL (1.0-4.8); Lymphocytes % (A) 4 %; MCH 31.8 pg (25.0-35.0); MCV 96.5 fL (80.0-100.0); Mean Platelet Volume 8.4; Monocytes # (A) 1.2 k/uL (0-1.0); Monocytes % (A) 6 %; Neutrophils # (A) 16.9 k/uL (1.3-7.7); Neutrophils % (A) 87 %; Platelet Count 303 k/uL (150-450); Poikilocytosis Slight; RBC 5.13 m/uL (4.30-5.90); RDW 13.1 % (11.5-15.5); WBC 19.5 k/uL (3.8-10.6)
[2021-10-13] MEDS ORDERED: ALTEPLASE 10 MG in SODIUM CHLORIDE 0.9% 100 ML IA ONE (06:15)
--- NOTE | 2021-10-13 07:46 | US ---
EXAMINATION TYPE: US abdomen limited DATE OF EXAM: 10/13/2021 COMPARISON: NONE CLINICAL HISTORY: Elevated liver enzymes. EXAM MEASUREMENTS: Liver Length: 15.0 cm Gallbladder Wall: not identified CBD: 0.6 cm Right Kidney: 9.5 x 5.1 x 5.7 cm Technically difficult exam performed portably in ICU on Covid patient. There is electrical interferen ce noted on images. Unable to identify gallbladder, patient was able to voice that he has a gallbladd er. Pancreas: Obscured by bowel gas Liver: visualized portions wnl Gallbladder: not identified CBD: wnl Right Kidney: No hydronephrosis or masses seen IMPRESSION: 1. Limited exam. 2. No obvious abnormalities identified on this right upper quadrant abdomen ultrasound
[2021-10-13] MEDS: ZINC SULFATE 220 MG CAP PO SCH (08:17)
[2021-10-13] MEDS: CHOLECALCIFEROL 25 MCG (1000 IU) TABLET PO SCH (08:18)
[2021-10-13] MEDS: ASCORBIC ACID 500 MG TAB PO SCH ×2 (08:18→20:09)
[2021-10-13] MEDS: PANTOPRAZOLE 40 MG/10 ML VIAL IV SCH (08:18)
[2021-10-13] MEDS: DEXAMETHASONE SOD PHOSPHATE 10 MG/ML 1 ML VIAL IVP SCH (08:18)
[2021-10-13 09:04] LABS: Albumin 3.2 g/dL (3.5-5.0); Calcium 8.6 mg/dL (8.4-10.2); Potassium 4.5 mmol/L (3.5-5.1); Total Bilirubin 1.6 mg/dL (0.2-1.3); Total Protein 6.7 g/dL (6.3-8.2)
[2021-10-13 09:06] LABS: Basophils # (A) 0.1 k/uL (0-0.2); Basophils % (A) 1 %; Eosinophils % (A) 0 %; HCT 52.1 % (39.0-53.0); HGB 16.5 gm/dL (13.0-17.5); Hypochromasia Marked; Lymphocytes # (A) 0.9 k/uL (1.0-4.8); Lymphocytes % (A) 4 %; MCH 32.4 pg (25.0-35.0); MCHC 31.7 g/dL (31.0-37.0); Macrocytosis Slight; Mean Platelet Volume 9.4; Monocytes # (A) 1.1 k/uL (0-1.0); Monocytes % (A) 6 %; Neutrophils # (A) 16.9 k/uL (1.3-7.7); Neutrophils % (A) 87 %; Platelet Count 275 k/uL (150-450); Poikilocytosis Slight; RDW 13.7 % (11.5-15.5); WBC 19.3 k/uL (3.8-10.6)
[2021-10-13 09:07] LABS: Fibrinogen 278 mg/dL (200-500); MCV 102.1 fL (80.0-100.0)
--- NOTE | 2021-10-13 09:59 | ECHOF ---
Referral Reason:Abnormal EKG MEASUREMENTS -------- HEIGHT: 180.3 cm WEIGHT: 102.5 kg BP: RAP: 5.00 mmHg RVSP: 13.33 mmHg FINDINGS -------- Limited Study Limited study due to covid 19 exposure. Overall left ventricular systolic function is low-normal with, an EF between 50 - 55 %. Lumason used There is a small pericardial effusion is located near the right ventricle. CONCLUSIONS -------- 1. Limited study due to covid 19 exposure. 2. Overall left ventricular systolic function is low-normal with, an EF between 50 - 55 %. 3. There is a small pericardial effusion is located near the right ventricle. HEAD SWAMPER: Eva Carlson RDCS
[2021-10-13] MEDS ORDERED: IV FLUID CONTINUATION 150 ML IV ONE (13:05)
--- NOTE | 2021-10-13 13:07 | P.PN ---
Subjective Progress Note Date: 10/13/21 Principal diagnosis: Acute right lower extremity ischemia/secondary to arterial thrombosis, and subacute COVID-19 pneumonia This is a 66-year-old white male, no major medical illnesses, patient is not vaccinated. Patient has been sick at home for the last 3 weeks. Symptoms have been mostly intermittent cough, shortness of breath, and over the last 2 weeks has been noticing increased pain and swelling in the right lower extremity. In the past few days, patient has been noticing bluish discoloration of the foot. And he was also experiencing pain in the calf region. Patient was brought into the ER, he was found to have positive COVID-19 PCR. Chest x-ray showed patchy peripheral opacities consistent with COVID-19 pneumonia patient was also found to have acute limb ischemia of the right lower extremity consistent with superficial femoral artery thrombosis requiring surgical intervention, patient was seen by vascular surgery on consultation, underwent left iliofemoral angiogram, right lower extremity angiogram and initiation of thrombolysis hoping to salvage the right foot. Postoperatively, patient was admitted to the ICU, and I was asked to see him on consultation. Patient is on 4 L nasal cannula O2 saturation 94%, he is not a great historian, patient was placed on the COVID-19 cocktail, and obviously he is out of the window for Remdesivir, and he does not qualify for Baricitinib. She was noted to have leukocytosis with WBC count of 19.0 hemoglobin of 17.3 d-dimer was 5.54 normal electrolytes except for low bicarb of 17 and elevated creatinine of 1.40 consistent with acute kidney injury, lactic acid was 3.6 improved with hydration went down to 1.7. Liver enzymes were also noted to be elevated with bilirubin of 2.0 AST of 407 and ALT of 108. Reevaluated today on 10/13/21, patient remains in the ICU, continues to have significant ischemic changes of the right foot with seems to be extremely cold, mottled, blue, all the way to the midcalf region. This is in spite of thrombolytics and in spite of heparin. Patient was seen by vascular surgery again today, and I believe he is going back to the catheterization lab, and should have TPA recheck. Other based on my clinical assessment, I have a feeling the patient is going to likely require amputation. Urinary-zepeda the patient is about the same, remains on 4 L nasal cannula, and his O2 saturation is 93%. Does not seem to be in any pulmonary distress. His electrolytes are normal bicarb is 20 WBC count is 19.3. Objective - Vital Signs Vital signs: Vital Signs Temp 99.1 F 10/13/21 08:00 Pulse 90 10/13/21 11:30 Resp 15 10/13/21 12:00 BP 152/81 10/13/21 12:00 Pulse Ox 93 L 10/13/21 12:00 Intake & Output 10/12/21 10/13/21 10/13/21 18:59 06:59 18:59 Intake Total 500 1420.5 500 Output Total 790 150 Balance 500 630.5 350 Weight 108.862 kg 102.8 kg Intake: IV 500 1345 500 Sodium Chloride 0.9% 1, 350 1345 125 000 ml @ 100 mls/hr IV . Q10H [facility] Rx#:[id number] Sodium Chloride 0.9% 1, 375 000 ml @ 130 mls/hr IV . Q7H42M [facility] Rx#:[id number] Intake, IV Titration 75.5 Amount Alteplase 10 mg In Sodium 75.5 Chloride 0.9% 100 ml @ 1 MG/HR 10 mls/hr IV .Q10H [facility] Rx#:[id number] Output: Urine 790 150 Other: Voiding Method Urinal Indwelling Catheter - Exam Physical Exam revealed a 66-year-old white male on 4 liters nasal cannula, in no distress. Head: Atraumatic, normocephalic. HEENT:[Neck is supple.] [No neck masses.] [No thyromegaly.] [No JVD.] Chest: [Symmetrical chest expansion, crackles at the bases. Cardiac Exam: [Normal S1 and S2, no S3 gallop, no murmur.] Abdomen: [Soft, nontender, no megaly, no rebound, no guarding, normal bowel sounds.] Extremities: Right foot is noted to be bluish, mottled all the way to the midca lf region. No pulses. Neurological Exam: [No focal neurologic deficit.] Alert oriented 3 Psychiatric: Normal mood blunt affect, normal mental status examination. - Labs CBC & Chem 7: 10/13/21 08:24 10/13/21 08:24 Labs: Abnormal Lab Results - Last 24 Hours (Table) 10/12/21 10/12/21 10/12/21 Range/Units 15:01 15:01 15:01 WBC (3.8-10.6) k/uL MCV (80.0-100.0) fL Neutrophils # (1.3-7.7) k/uL Lymphocytes # (1.0-4.8) k/uL Monocytes # (0-1.0) k/uL PT 13.2 H (9.0-12.0) sec INR 1.3 H (<1.2) D-Dimer (<0.60) mg/L FEU Sodium (137-145) mmol/L Chloride 109 H (98-107) mmol/L Carbon Dioxide 17 L (22-30) mmol/L BUN 29 H (9-20) mg/dL Glucose 178 H (74-99) mg/dL Total Bilirubin (0.2-1.3) mg/dL AST (17-59) U/L ALT (4-49) U/L Albumin (3.5-5.0) g/dL Procalcitonin 0.14 H (0.02-0.09) ng/mL 10/12/21 10/12/21 10/13/21 Range/Units 15:01 20:17 02:18 WBC 19.0 H 19.2 H 19.5 H (3.8-10.6) k/uL MCV (80.0-100.0) fL Neutrophils # 17.2 H 17.0 H 16.9 H (1.3-7.7) k/uL Lymphocytes # 0.7 L 0.8 L 0.8 L (1.0-4.8) k/uL Monocytes # 1.2 H (0-1.0) k/uL PT (9.0-12.0) sec INR (<1.2) D-Dimer (<0.60) mg/L FEU Sodium (137-145) mmol/L Chloride (98-107) mmol/L Carbon Dioxide (22-30) mmol/L BUN (9-20) mg/dL Glucose (74-99) mg/dL Total Bilirubin (0.2-1.3) mg/dL AST (17-59) U/L ALT (4-49) U/L Albumin (3.5-5.0) g/dL Procalcitonin (0.02-0.09) ng/mL 10/13/21 10/13/21 10/13/21 Range/Units 08:24 08:24 08:24 WBC 19.3 H (3.8-10.6) k/uL MCV 102.1 H D (80.0-100.0) fL Neutrophils # 16.9 H (1.3-7.7) k/uL Lymphocytes # 0.9 L (1.0-4.8) k/uL Monocytes # 1.1 H (0-1.0) k/uL PT (9.0-12.0) sec INR (<1.2) D-Dimer >34.10 H (<0.60) mg/L FEU Sodium 146 H (137-145) mmol/L Chloride 117 H (98-107) mmol/L Carbon Dioxide 20 L (22-30) mmol/L BUN 25 H (9-20) mg/dL Glucose 128 H (74-99) mg/dL Total Bilirubin 1.6 H (0.2-1.3) mg/dL AST 254 H (17-59) U/L ALT 113 H (4-49) U/L Albumin 3.2 L (3.5-5.0) g/dL Procalcitonin (0.02-0.09) ng/mL Assessment and Plan Assessment: Impression: Acute right lower extremity ischemia secondary to arterial thrombosis, patient is status post left iliofemoral angiogram, right lower extremity angiogram and presently on thrombolysis. Postoperative day #1. However the patient may need reevaluation and TPA recheck. Acute hypoxic respiratory failure secondary to COVID-19 pneumonia Hypercoagulable state and arterial thrombosis secondary to COVID-19 pneumonia/infection Acute lactic acidosis secondary to limb ischemia Acute kidney injury , improving with hydration. Recommendation: Continue thrombolysis, as recommended by vascular surgery. However the patient may eventually require amputation and this is to be decided upon by vascular surgery on the case. Continue COVID-19 cocktail. Continue anticoagulation therapy as per vascular surgery on the case. receiving thrombolytics. Patient is out of the window for Remdesivir, and he is not a candidate for Baricitinib at this point in time. We will continue to monitor the patient in the ICU GI and DVT prophylaxis Will follow. Time with Patient: Less than 30
[2021-10-13] MEDS ORDERED: LIDOCAINE 1% INJ 10MG/ML (20 ML MDV) SQ ONE (13:19)
[2021-10-13] MEDS ORDERED: IOPAMIDOL-250 100ML BTL INTRAARTER ONE (13:35)
--- NOTE | 2021-10-13 14:07 | P.OP ---
Date of Procedure: 10/13/21 Description of Procedure: Preoperative diagnosis: [Acute right lower extremity ischemia, positive COVID] Postoperative diagnosis: Same Procedure: [Right lower extremity angiogram via existing catheter] Surgeon: April Marino D.O. EBL: [Less than 10 mL] IV fluids: [See records] Urine output: [See records] Drains: [None] Complications: None immediately apparent Condition: [[Stable but critical]] Operative indication and findings: [Pt is a 66 year old male with acute left limb ischemia who presents for a recheck. ] Procedure in detail: [The patient was taken to the special suite and placed in supine position the bilateral groins are prepped and draped in usual sterile fashion. A preprocedure timeout was performed, all parties were in agreement. Using the previously placed catheter, the inner ultrasonic portion was removed. A wire was placed and the catheter was removed. An angiogram was obtained. Up & Over sheath which revealed essentially limited change. There were some small collateral vessels that appeared to be more patent than previous however there was no uptake in the popliteal artery at the level of the knee or anything beyond this. There was a small air the abductor canal which again had some increase in flow however nothing of note. Because of this catheters and wires were then removed the sheath was removed and a closure device was placed. The patient will need an above-knee amputation]
--- NOTE | 2021-10-13 14:12 | IR ---
EXAMINATION TYPE: IR angio extremity RT DATE OF EXAM: 10/13/2021 COMPARISON: NONE HISTORY: Fluoroscopy time. Fluoroscopy was provided to the referring clinician.
[2021-10-13 15:21] LABS: Basophils % (A) 0 %; Eosinophils % (A) 0 %; HCT 48.4 % (39.0-53.0); HGB 15.4 gm/dL (13.0-17.5); Hypochromasia Slight; Lymphocytes # (A) 0.7 k/uL (1.0-4.8); Lymphocytes % (A) 3 %; MCH 30.4 pg (25.0-35.0); MCHC 31.9 g/dL (31.0-37.0); Mean Platelet Volume 8.7; Monocytes # (A) 0.8 k/uL (0-1.0); Monocytes % (A) 4 %; Neutrophils # (A) 18.1 k/uL (1.3-7.7); Neutrophils % (A) 92 %; Platelet Count 298 k/uL (150-450); Poikilocytosis Slight; RBC 5.07 m/uL (4.30-5.90); WBC 19.8 k/uL (3.8-10.6)
[2021-10-13 15:29] LABS: MCV 95.4 fL (80.0-100.0)
[2021-10-13] MEDS: HEPARIN SOD,PORK IN 0.45% NACL 25,000 UNIT in 0.45% NACL 1 250ML.BAG IV SCH ×4 (15:55→20:55)
[2021-10-13 16:03] LABS: Hepatitis A Antibody IgM Nonreactive (Nonreactive); Hepatitis B Core IgM Nonreactive (Nonreactive); Hepatitis B Surface Antigen Nonreactive (Nonreactive); Hepatitis C IgG Antibody Nonreactive (Nonreactive)
[2021-10-13] MEDS ORDERED: HEPARIN SODIUM 1,000 UN/ML (10ML VL) IV PRN (17:59)
--- NOTE | 2021-10-13 20:47 | P.PN ---
Progress Note - Text Progress Note Date: 10/13/21 Chief Complaint: Right leg pain This is a 66-year-old patient who follows Dr. Stefano Miguel. He presented to ER earlier today with a right calf pain. Symptoms have been coming on for about 3 weeks. Patient is also had decreased appetite for some time. Complaint of fe eling dry in the ER. Some shortness of breath. He did also had discoloration to the right leg for several days. Having pain in the calf. No chest pain. ER physician had called me thinking this was an arterial compromise. Dr. Marino from vascular was consulted. The patient down to the operating room. Patient was discovered to have occlusion of the superficial femoral artery down to the integrity of the leg. Left common femoral artery was accessed. Angiogram was done. And thrombolysis was started. Patient's currently getting TPN heparin drip. In the ICU. Patient is received pain medications and is rather lethargic. Not really able to give much of a history currently. According to the nurse doesn't Doppler in the left leg. Dopplers also present in the right leg up to the knee not below the knee. Patient tested positive for COVID in the ER. Patient was given EKOS with heparin and TPA infusion. October 13: ICU: Patient had theEKOS removed this afternoon. Patient was taken to the OR by Dr. Marino. Repeat angiogram did not show any blood flow below the right knee. Patient's mottling though has improved of the right leg. Walking just above the ankle. Patient has some sensations lower extremity. This point decision is to resume the IV heparin. Patient may still level of getting amputation depending on clinical course. Review of systems: Was done for constitutional, cardiovascular, GI, pulmonary. relevant finding as above Active Medications Ascorbic Acid (Ascorbic Acid 500 Mg Tab) 500 mg PO BID [facility] Last Admin: 10/13/21 20:09 Dose: 500 mg Documented by: Cholecalciferol (Cholecalciferol 25 Mcg (1000 Iu) Tablet) 25 mcg PO DAILY [facility] Last Admin: 10/13/21 08:18 Dose: 25 mcg Documented by: Dexamethasone Sodium Phosphate (Dexamethasone Sod Phosphate 10 Mg/Ml 1 Ml Vial) 6 mg IVP DAILY [facility] Last Admin: 10/13/21 08:18 Dose: 6 mg Documented by: Heparin Sodium (Porcine) (Heparin Sodium 1,000 Un/Ml (10ml Vl)) 0 unit IV PER PROTOCOL PRN; Protocol PRN Reason: Low PTT Hydromorphone HCl (Hydromorphone 1 Mg/Ml 1 Ml Syringe) 1 mg IVP Q3HR PRN PRN Reason: Severe Pain Last Admin: 10/13/21 08:34 Dose: 1 mg Documented by: Hydromorphone HCl (Hydromorphone 0.5 Mg/0.5 Ml Syringe) 0.5 mg IVP Q3HR PRN PRN Reason: Moderate Pain Sodium Chloride (Saline 0.9%) 1,000 mls @ 100 mls/hr IV .Q10H [facility] Last Admin: 10/13/21 19:35 Dose: Not Given Documented by: Heparin Sodium/Sodium Chloride (25,000 unit/ Sodium Chloride) 250 mls @ 10 mls/hr IV .Q24H [facility]; Protocol Naloxone HCl (Naloxone 0.4 Mg/Ml 1 Ml Vial) 0.2 mg IV Q2M PRN PRN Reason: Opioid Reversal Ondansetron HCl (Ondansetron 4 Mg/2 Ml Vial) 4 mg IVP Q4HR PRN PRN Reason: Nausea And Vomiting Pantoprazole Sodium (Pantoprazole 40 Mg/10 Ml Vial) 40 mg IV DAILY [facility] Last Admin: 10/13/21 08:18 Dose: 40 mg Documented by: Zinc Sulfate (Zinc Sulfate 220 Mg Cap) 220 mg PO DAILY [facility] Last Admin: 10/13/21 08:17 Dose: 220 mg Documented by: Past medical history to include: Prostate disorder Social history: Patient started smoking as a teen and stopped in 1995. No alcohol. Lives alone. 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 Family history: Reviewed, noncontributory to presentation Physical examination: VITAL SIGNS: Febrile, 94, 12, 1 41/95, GENERAL: Laying in bed, awake, communicating EYES: Pupils equal. Conjunctiva normal. HEENT: External appearance of nose and ears normal, oral cavity grossly normal. NECK: JVD not raised; masses not palpable. HEART: First and second heart sounds are normal; no edema. LUNGS: Respiratory rate normal; decreased breath sounds. ABDOMEN: Soft, nontender, liver spleen not palpable, no masses palpable. Marino catheter PSYCH: AO 3, mood affect normal. EXTREMITY: Mottling of the right lower limb just above the ankle. Some right calf tenderness. Some sensation is present. INVESTIGATIONS, reviewed in the clinical context: October 13: White count 9.8 hemoglobin 15.4 platelets 298 potassium 4.5 BUN 25 creatinine 1.04 AST 254 and ALT 113 Ultrasound: Limited exam. No obvious abnormality. Acute hepatitis panel: Negative White count 19.2 hemoglobin 18.9 platelets 511 2142 BUN 31 creatinine 1.40, repeat 1.19 Lactic acid 3.6 AST 407 ALT 108 Pro-calcitonin 0.14 Coronavirus [PCR]: Detected EKG tracing personally reviewed by me-normal sinus rhythm. Right bundle branch block. ST-T wave changes. PVCs. Assessment and plan: -This is a patient who presents with pain in the right calf which is going on for a few days progressively getting worse. Appears to have had acute on chronic arterial occlusion. Especially of the superficial femoral artery. Patient has aEKOS placed through the left groin. Receive TPN heparin. On October 04 repeat angiogram showed or circulation below the knee. IV heparin being resumed. Possible amputation down the road. -Acute on chronic PAD, as patient's symptoms came on since around September 26. At aspirin, Lipitor. -IV heparin monitoring. Follow PTT -Right bundle branch block pattern -Metabolic acidosis Sodium bicarbonate by mouth -Acute kidney injury, possibly ATN, improving IV fluids. -Hepatitis, chronicity unknown Acute hepatitis panel: Negative. Repeat labs. -Acute hypoxic respiratory failure from COVID 19 Pulse ox was 89% on room air on presentation. dexamethasone. -Acute COVID 19 pneumonitis Vitamin C vitamin D. Zinc. Dexamethasone. Resume IV heparin. Care was discussed with the patient and Dr. Marino. It seems patient has some collaterals of lower extremity. Still angiogram did not show any soft tissue below the knee. Amputation remains a high property. Continue supportive care. At aspirin and Lipitor.
[2021-10-13] MEDS: ATORVASTATIN 40 MG TAB PO SCH (21:54)
[2021-10-13] MEDS: ASPIRIN 81 MG PO SCH (21:54)
[2021-10-14] MEDS: SODIUM CHLORIDE 0.9% 1,000 ML IV SCH ×3 (00:43→18:48)
--- NOTE | 2021-10-14 03:09 | CT ---
EXAMINATION TYPE: CT brain wo con DATE OF EXAM: 10/14/2021 COMPARISON: None HISTORY: AMS CT DLP: 1131.4 mGycm Automated exposure control for dose reduction was used. Images of the brain obtained without contrast. Ventricles have normal size. There is no mass effect or midline shift. There is no sign of intracrani al hemorrhage. There is mild atrophy appropriate for age. Calvarium is intact. The skull base is inta ct. There is normal aeration of the mastoids sinuses. IMPRESSION: Negative unenhanced head CT scan.
[2021-10-14 05:00] LABS: Basophils % (A) 0 %; Eosinophils % (A) 0 %; HCT 40.6 % (39.0-53.0); HGB 13.7 gm/dL (13.0-17.5); Lymphocytes # (A) 1.2 k/uL (1.0-4.8); Lymphocytes % (A) 7 %; MCH 31.5 pg (25.0-35.0); MCHC 33.7 g/dL (31.0-37.0); MCV 93.5 fL (80.0-100.0); Monocytes # (A) 0.9 k/uL (0-1.0); Monocytes % (A) 5 %; Neutrophils # (A) 14.9 k/uL (1.3-7.7); Neutrophils % (A) 86 %; Platelet Count 257 k/uL (150-450); Poikilocytosis Slight; RBC 4.34 m/uL (4.30-5.90); RDW 13.6 % (11.5-15.5); WBC 17.3 k/uL (3.8-10.6)
[2021-10-14 05:13] LABS: ALT 99 U/L (4-49); AST 311 U/L (17-59); African American GFR (CKD) >90 (>60 ml/min/1.73 sqM); Albumin 2.6 g/dL (3.5-5.0); Alkaline Phosphatase 88 U/L (38-126); Anion Gap 6 mmol/L; Blood Urea Nitrogen 17 mg/dL (9-20); Calcium 7.8 mg/dL (8.4-10.2); Carbon Dioxide 20 mmol/L (22-30); Chloride 112 mmol/L (98-107); Glucose 94 mg/dL (74-99); Non-African American GFR(CKD) >90 (>60 ml/min/1.73 sqM); Potassium 3.9 mmol/L (3.5-5.1); Sodium 138 mmol/L (137-145); Total Bilirubin 1.8 mg/dL (0.2-1.3); Total Protein 5.7 g/dL (6.3-8.2)
[2021-10-14] MEDS: ASPIRIN 81 MG PO SCH ×2 (09:27→19:59)
[2021-10-14] MEDS: PANTOPRAZOLE 40 MG/10 ML VIAL IV SCH (09:27)
[2021-10-14] MEDS: CHOLECALCIFEROL 25 MCG (1000 IU) TABLET PO SCH (09:27)
[2021-10-14] MEDS: ZINC SULFATE 220 MG CAP PO SCH (09:27)
[2021-10-14] MEDS: dexAMETHasone 2 MG TAB PO SCH (09:27)
[2021-10-14] MEDS: ASCORBIC ACID 500 MG TAB PO SCH ×2 (09:27→19:58)
--- NOTE | 2021-10-14 12:30 | P.PN ---
Subjective Progress Note Date: 10/14/21 Patient seen and examined. No complaints. States this pain in his right lower exam is actually improved. Still tenderness into his calf. Had some altered mental status last night and a CT brain was obtained, no evidence of intercranial hemorrhage. Objective - Vital Signs Vital signs: Vital Signs Temp 96.8 F L 10/14/21 08:00 Pulse 82 10/14/21 08:00 Resp 18 10/14/21 08:00 BP 147/74 10/14/21 08:00 Pulse Ox 91 L 10/14/21 08:00 Intake & Output 10/13/21 10/14/21 10/14/21 18:59 06:59 18:59 Intake Total 1147 84 0 Output Total 288 342 9831 Balance 942 -709 -3545 Intake: IV 925 Sodium Chloride 0.9% 1, 125 000 ml @ 100 mls/hr IV . Q10H [facility] Rx#:[id number] Sodium Chloride 0.9% 1, 750 000 ml @ 130 mls/hr IV . Q7H42M [facility] Rx#:[id number] Intake, IV Titration 84 Amount Heparin Sod,Pork in 0.45% 84 NaCl 25,000 unit In 0.45 % NaCl 1 250ml.bag @ 9. 728 UNITS/KG/HR 10 mls/hr IV .Q24H [facility] Rx#: [id number] Oral 222 0 Output: Urine 816 [id number] [id number] Other: Voiding Method Indwelling Catheter Indwelling Catheter Indwelling Catheter - Exam Gen. is a pleasant cooperative male in no acute distress. Heart is regular at this time. Lungs are clear. Abdomen is soft. Right lower extremity with cyanosis to the plantar portion the foot and forefoot. Decreased sensation. Minimal motor availability of the ankle in plantar and dorsiflexion. Some tenderness in the calf although compartments remained soft - Labs CBC & Chem 7: 10/14/21 04:35 10/14/21 04:35 Labs: Abnormal Lab Results - Last 24 Hours (Table) 10/13/21 10/14/21 10/14/21 Range/Units 14:56 04:35 04:35 WBC 19.8 H (3.8-10.6) k/uL Neutrophils # 18.1 H (1.3-7.7) k/uL Lymphocytes # 0.7 L (1.0-4.8) k/uL APTT (22.0-30.0) sec D-Dimer >34.10 H (<0.60) mg/L FEU Chloride 112 H (98-107) mmol/L Carbon Dioxide 20 L (22-30) mmol/L Calcium 7.8 L (8.4-10.2) mg/dL Total Bilirubin 1.8 H (0.2-1.3) mg/dL AST 311 H (17-59) U/L ALT 99 H (4-49) U/L Total Protein 5.7 L (6.3-8.2) g/dL Albumin 2.6 L (3.5-5.0) g/dL 10/14/21 10/14/21 10/14/21 Range/Units 04:35 04:35 11:38 WBC 17.3 H (3.8-10.6) k/uL Neutrophils # 14.9 H (1.3-7.7) k/uL Lymphocytes # (1.0-4.8) k/uL APTT 42.2 H 62.9 H (22.0-30.0) sec D-Dimer (<0.60) mg/L FEU Chloride (98-107) mmol/L Carbon Dioxide (22-30) mmol/L Calcium (8.4-10.2) mg/dL Total Bilirubin (0.2-1.3) mg/dL AST (17-59) U/L ALT (4-49) U/L Total Protein (6.3-8.2) g/dL Albumin (3.5-5.0) g/dL Assessment and Plan Assessment: Kylah 2 Acute Limb ischemia on the right, likely the distal SFA/popliteal/Infrapopliteal artery Positive for coronavirus Plan: At this point patient will need some degree of amputation. We'll plan for a possible below knee versus above knee amputation tomorrow. Discussed with medicine, would rather have cardiology evaluation rather than giving medical clearance. EF is preserved at 50-55%. We will await further recommendations per cardiology. Type and screen as ordered. Hold heparin drip at midnight
--- NOTE | 2021-10-14 13:14 | P.PN ---
Progress Note - Text Progress Note Date: 10/14/21 Chief Complaint: Right leg pain This is a 66-year-old patient who follows Dr. Stefano Miguel. He presented to ER earlier today with a right calf pain. Symptoms have been coming on for about 3 weeks. Patient is also had decreased appetite for some time. Complaint of fe eling dry in the ER. Some shortness of breath. He did also had discoloration to the right leg for several days. Having pain in the calf. No chest pain. ER physician had called me thinking this was an arterial compromise. Dr. Marino from vascular was consulted. The patient down to the operating room. Patient was discovered to have occlusion of the superficial femoral artery down to the integrity of the leg. Left common femoral artery was accessed. Angiogram was done. And thrombolysis was started. Patient's currently getting TPN heparin drip. In the ICU. Patient is received pain medications and is rather lethargic. Not really able to give much of a history currently. According to the nurse doesn't Doppler in the left leg. Dopplers also present in the right leg up to the knee not below the knee. Patient tested positive for COVID in the ER. Patient was given EKOS with heparin and TPA infusion. October 13: ICU: Patient had theEKOS removed this afternoon. Patient was taken to the OR by Dr. Marino. Repeat angiogram did not show any blood flow below the right knee. Patient's mottling though has improved of the right leg. Walking just above the ankle. Patient has some sensations lower extremity. This point decision is to resume the IV heparin. Patient may still level of getting amputation depending on clinical course. October 14: Patient is being moved to the medical floor. Last night patient had altered mental status. Stat computed tomography scan negative for bleed. Likely delirious. Neurology consulted. Neuro checks. Cardiology consulted for medical clearance. Patient on IV heparin. Tender right leg. Some decrease in mottling. Review of systems: Was done for constitutional, cardiovascular, GI, pulmonary. relevant finding as above Active Medications Ascorbic Acid (Ascorbic Acid 500 Mg Tab) 500 mg PO BID [facility] Last Admin: 10/14/21 09:27 Dose: 500 mg Documented by: Aspirin (Aspirin 81 Mg) 81 mg PO BID [facility] Last Admin: 10/14/21 09:27 Dose: 81 mg Documented by: Atorvastatin Calcium (Atorvastatin 40 Mg Tab) 40 mg PO HS [facility] Last Admin: 10/13/21 21:54 Dose: Not Given Documented by: Cholecalciferol (Cholecalciferol 25 Mcg (1000 Iu) Tablet) 25 mcg PO DAILY [facility] Last Admin: 10/14/21 09:27 Dose: 25 mcg Documented by: Dexamethasone (Dexamethasone 2 Mg Tab) 6 mg PO DAILY [facility] Last Admin: 10/14/21 09:27 Dose: 6 mg Documented by: Heparin Sodium (Porcine) (Heparin Sodium 1,000 Un/Ml (10ml Vl)) 0 unit IV PER PROTOCOL PRN; Protocol PRN Reason: Low PTT Hydromorphone HCl (Hydromorphone 1 Mg/Ml 1 Ml Syringe) 1 mg IVP Q3HR PRN PRN Reason: Severe Pain Last Admin: 10/13/21 08:34 Dose: 1 mg Documented by: Hydromorphone HCl (Hydromorphone 0.5 Mg/0.5 Ml Syringe) 0.5 mg IVP Q3HR PRN PRN Reason: Moderate Pain Sodium Chloride (Saline 0.9%) 1,000 mls @ 100 mls/hr IV .Q10H [facility] Last Admin: 10/14/21 09:38 Dose: 100 mls/hr Documented by: Heparin Sodium/Sodium Chloride (25,000 unit/ Sodium Chloride) 250 mls @ 10 mls/hr IV .Q24H [facility]; Protocol Last Titration: 10/14/21 05:19 Dose: 11.728 units/kg/hr, 12.056 mls/hr Documented by: Naloxone HCl (Naloxone 0.4 Mg/Ml 1 Ml Vial) 0.2 mg IV Q2M PRN PRN Reason: Opioid Reversal Ondansetron HCl (Ondansetron 4 Mg/2 Ml Vial) 4 mg IVP Q4HR PRN PRN Reason: Nausea And Vomiting Pantoprazole Sodium (Pantoprazole 40 Mg/10 Ml Vial) 40 mg IV DAILY [facility] Last Admin: 10/14/21 09:27 Dose: 40 mg Documented by: Zinc Sulfate (Zinc Sulfate 220 Mg Cap) 220 mg PO DAILY [facility] Last Admin: 10/14/21 09:27 Dose: 220 mg Documented by: Past medical history to include: Prostate disorder Social history: Patient started smoking as a teen and stopped in 1995. No alcohol. Lives alone. 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 Family history: Reviewed, noncontributory to presentation Physical examination: VITAL SIGNS: 96.8, 80, 16, 147.74, 91% on 4 L GENERAL: Laying in bed, awake, tired EYES: Pupils equal. Conjunctiva normal. HEENT: External appearance of nose and ears normal, oral cavity grossly normal. NECK: JVD not raised; masses not palpable. HEART: First and second heart sounds are normal; no edema. LUNGS: Respiratory rate normal; decreased breath sounds. ABDOMEN: Soft, nontender, liver spleen not palpable, no masses palpable. Marino catheter PSYCH: AO 3, mood affect normal. EXTREMITY: Mottling of the right lower limb just above the ankle. right calf tenderness. Some sensation is present. INVESTIGATIONS, reviewed in the clinical context: October 14: White count 7.3 hemoglobin 13.7 potassium 3.9 creatinine 0.82 AST 311 ALT 99 Computed tomography scan: Negative October 13: White count 9.8 hemoglobin 15.4 platelets 298 potassium 4.5 BUN 25 creatinine 1.04 AST 254 and ALT 113 Ultrasound: Limited exam. No obvious abnormality. Acute hepatitis panel: Negative White count 19.2 hemoglobin 18.9 platelets 511 2142 BUN 31 creatinine 1.40, repeat 1.19 Lactic acid 3.6 AST 407 ALT 108 Pro-calcitonin 0.14 Coronavirus [PCR]: Detected EKG tracing personally reviewed by me-normal sinus rhythm. Right bundle branch block. ST-T wave changes. PVCs. Assessment and plan: -This is a patient who presents with pain in the right calf which is going on for a few days progressively getting worse. Appears to have had acute on chronic arterial occlusion. Especially of the superficial femoral artery. Patient has aEKOS placed through the left groin. Receive TPN heparin. On October 13 repeat angiogram showed or circulation below the knee. IV heparin resumed. Possible amputation down the road. -Acute on chronic PAD, as patient's symptoms came on since around September 26. aspirin, Lipitor. -Acute delirium. Computed tomography scan been negative. Neurology consulted. EEG -IV heparin monitoring. Follow PTT -Right bundle branch block pattern -Metabolic acidosis Sodium bicarbonate by mouth -Acute kidney injury, possibly ATN, : Improved IV fluids. -Hepatitis, chronicity unknown Acute hepatitis panel: Negative. Repeat labs. -Acute hypoxic respiratory failure from COVID 19 Pulse ox was 89% on room air on presentation. dexamethasone. -Acute COVID 19 pneumonitis Vitamin C vitamin D. Zinc. Dexamethasone. IV heparin. Discussed with Dr. Marino. Amputation likely. Follow LFT. Order EEG. Neurology consulted. Cardiology for clearance.
--- NOTE | 2021-10-14 13:27 | P.CRDCN ---
History of Present Illness History of present illness: HISTORY OF PRESENTING ILLNESS This is a pleasant 66-year-old male past medical history of prostate disorder and hypertension . He does not follow with a associate director of biostatistics. We have been asked to see in consultation for cardiac clearance. Patient presents emergency department on 10/12/2021 with complaints of right calf pain for about 3 weeks. Patient also had decreased appetite, some shortness of breath, discoloration to the right leg for several days. Patient is covid-19 positive. Patient was found to have acute limb ischemia of the right lower extremity consistent with superficial femoral artery thrombosis requiring surgical intervention, patient was seen by vascular surgery on consultation, underwent left iliofemoral angiogram, right lower extremity angiogram and initiation of thrombolysis with heparin and TPA infusion. Patient had the EKOS removed and was taken back to the OR by Dr. Marino. Repeat angiogram did not show any blood flow below the right knee. Plan for patient to have right above the knee amputation with Dr. Marino 10/15/21. Patient denies history of CAD, [place], stroke, Diabetes, dyslipidemia. He does have a history of hypertension, was on medication but discontinued by his primary he states years ago. He is a non-smoker. He denies any chest pain, shortness of breath, palpitations, lightheadedness, dizziness, history of syncope or near syncope. DIAGNOSTICS EKG on admission revealed sinus tachycardia, heart rate 116, PVCs, incomplete right bundle branch block, T wave inversion in lead III and aVF. No prior EKG Telemetry tracings indicate sinus mechanism, heart rate 70s90s Echocardiogram revealed EF of 5055%, small pericardial effusion is located near the right ventricle. Laboratory reviewed, WBC 17.3, hemoglobin 13.7, platelets 257, d-dimer greater than 34, sodium 138, potassium 3.9, BUN 17, serum creatinine 0.8 Current home medications include, multivitamin, otc allergy medicine and PRN tums. REVIEW OF SYSTEMS At the time of my exam: CONSTITUTIONAL: Denies fever or chills. CARDIOVASCULAR: Denies chest pain, shortness of breath, orthopnea, PND or palpitations. RESPIRATORY: Denies cough. GASTROINTESTINAL: Denies abdominal pain, diarrhea, constipation, nausea or vomiting. MUSCULOSKELETAL: Denies myalgias. NEUROLOGIC: Denies numbness, tingling, headacbe or weakness. ENDOCRINE: Denies fatigue, weight change, polydipsia or polyurina. GENITOURINARY: Denies burning, hematuria or urgency with micturation. HEMATOLOGIC: Denies history of anemia or bleeding. PHYSICAL EXAMINATION Blood pressure 147/74, heart rate 80, afebrile, oxygen saturations 91% on 4 L nasal cannula CONSTITUTIONAL: No apparent distress. HEENT: Head is normocephalic. Pupils are equal, round. Sclerae anicteric. Mucous membranes of the mouth are moist. No JVD CHEST EXAMINATION: Lungs are clear to auscultation. No chest wall tenderness is noted on palpation or with deep breathing. HEART EXAMINATION: Regular rate and rhythm. S1, S2 heard. No murmurs, gallops or rub. ABDOMEN: Soft, nontender. Positive bowel sounds. EXTREMITIES: Right lower extremity with cyanosis to the right foot and decreased sensation to right lower extremity. No lower extremity edema and no calf tenderness. NEUROLOGIC EXAMINATION: Patient is awake, alert and oriented x3. ASSESSMENT Acute Limb ischemia on the right Covid-19 infection Hypertension PLAN -From a cardiology perspective, patient is hemodynamically stable. Benefit of surgery outweighs risk at this time. There are no absolute contraindications to undergo surgery at this time. Patient is able to perform >4 METs levels of activity and does not have any acute cardiac conditions. Nurse Practitioner note has been reviewed, I agree with a documented findings and plan of care. Patient was seen and examined. Past Medical History Past Medical History: Prostate Disorder Additional Past Medical History / Comment(s): Pt tested covid + at [facility] ER on , pt may have had pneumonia years ago. History of Any Multi-Drug Resistant Organisms: None Reported Past Surgical History: Cholecystectomy Additional Past Surgical History / Comment(s): R knee arthroscopy, colonoscopy Past Anesthesia/Blood Transfusion Reactions: No Reported Reaction Smoking Status: Former smoker - Past Family History Father Family Medical History: No Reported History Additional Family Medical History / Comment(s): Father was healthy Mother Family Medical History: No Reported History Additional Family Medical History / Comment(s): Mother was healthy Medications and Allergies Home Medications Medication Instructions Recorded Confirmed Type Calcium Carbonate [Tums] 500 - 1,000 mg PO QID PRN 10/12/21 10/12/21 History Multivit-Min/Folic/Vit K/Lycop 1 tab PO DAILY 10/12/21 10/12/21 History [Men's Multivitamin Tablet] Otc Allergy Med (Unknown) 1 tab PO BID 10/12/21 10/12/21 History Allergies Allergy/AdvReac Type Severity Reaction Status Date / Time No Known Allergies Allergy Verified 10/12/21 11:42 Physical Exam Vitals: Vital Signs Temp Pulse Pulse Resp BP BP Pulse Ox 10/14/21 08:00 96.8 F L 80 16 147/74 91 L 10/14/21 04:00 98.3 F 82 18 154/69 94 L 10/14/21 02:00 87 18 10/13/21 23:35 98.2 F 87 18 150/73 96 10/13/21 20:30 98.0 F 89 10 L 148/88 93 L 10/13/21 20:00 101 H 48 H 10/13/21 19:30 97 8 L 10/13/21 19:00 93 12 10/13/21 18:30 102 H 36 H 10/13/21 18:00 94 9 L 10/13/21 17:30 91 7 L 10/13/21 17:00 101 H 30 H 141/95 10/13/21 16:30 92 15 155/73 10/13/21 16:00 91 12 161/74 92 L 10/13/21 15:30 98 19 171/87 93 L 10/13/21 15:00 94 32 H 91 L 10/13/21 14:30 92 14 173/75 91 L 10/13/21 14:00 105 H 15 180/89 92 L Intake and Output 10/13/21 10/14/21 10/14/21 22:59 06:59 14:59 Intake Total 597 84 0 Output Total 669 955 4704 Balance 392 266 1375 Intake: IV 375 Sodium Chloride 0.9% 1, 375 000 ml @ 130 mls/hr IV . Q7H42M [facility] Rx#:[id number] Intake, IV Titration 84 Amount Heparin Sod,Pork in 0.45% 84 NaCl 25,000 unit In 0.45 % NaCl 1 250ml.bag @ 9. 728 UNITS/KG/HR 10 mls/hr IV .Q24H [facility] Rx#: [id number] Oral 222 0 Output: Urine 366 067 3933 Other: Voiding Method Indwelling Catheter Indwelling Catheter Indwelling Catheter Results 10/14/21 04:35 10/14/21 04:35 Cardiac Enzymes 10/14/21 Range/Units 04:35 AST 311 H (17-59) U/L Coagulation 10/13/21 10/14/21 10/14/21 Range/Units 18:22 04:35 11:38 APTT 24.3 42.2 H 62.9 H (22.0-30.0) sec CBC 10/13/21 10/14/21 Range/Units 14:56 04:35 WBC 19.8 H 17.3 H (3.8-10.6) k/uL RBC 5.07 4.34 (4.30-5.90) m/uL Hgb 15.4 13.7 (13.0-17.5) gm/dL Hct 48.4 40.6 (39.0-53.0) % Plt Count 298 257 (150-450) k/uL Comprehensive Metabolic Panel 10/14/21 Range/Units 04:35 Sodium 138 (137-145) mmol/L Potassium 3.9 (3.5-5.1) mmol/L Chloride 112 H (98-107) mmol/L Carbon Dioxide 20 L (22-30) mmol/L BUN 17 (9-20) mg/dL Creatinine 0.82 (0.66-1.25) mg/dL Glucose 94 (74-99) mg/dL Calcium 7.8 L (8.4-10.2) mg/dL AST 311 H (17-59) U/L ALT 99 H (4-49) U/L Alkaline Phosphatase 88 (38-126) U/L Total Protein 5.7 L (6.3-8.2) g/dL Albumin 2.6 L (3.5-5.0) g/dL Current Medications Generic Name Dose Route Start Last Admin Trade Name Freq PRN Reason Stop Dose Admin Ascorbic Acid 500 mg 10/12/21 14:00 10/14/21 09:27 Ascorbic Acid 500 Mg Tab PO 500 mg BID [facility] Administration Aspirin 81 mg 10/13/21 21:00 10/14/21 09:27 Aspirin 81 Mg PO 81 mg BID [facility] Administration Atorvastatin Calcium 40 mg 10/13/21 21:00 10/13/21 21:54 Atorvastatin 40 Mg Tab PO Not Given HS [facility] Cholecalciferol 25 mcg 10/12/21 14:15 12/30/21 09:27 Cholecalciferol 25 Mcg (1000 Iu) Tablet PO 25 mcg DAILY [facility] Administration Dexamethasone 6 mg 10/14/21 09:00 10/14/21 09:27 Dexamethasone 2 Mg Tab PO 6 mg DAILY [facility] Administration Heparin Sodium (Porcine) 0 unit 10/13/21 17:59 Heparin Sodium 1,000 Un/Ml (10ml Vl) IV PER PROTOCOL PRN Low PTT Protocol Hydromorphone HCl 1 mg 10/12/21 11:31 10/13/21 08:34 Hydromorphone 1 Mg/Ml 1 Ml Syringe IVP 1 mg Q3HR PRN Administration Severe Pain Hydromorphone HCl 0.5 mg 10/12/21 11:31 Hydromorphone 0.5 Mg/0.5 Ml Syringe IVP Q3HR PRN Moderate Pain Sodium Chloride 1,000 mls @ 100 mls/hr 10/12/21 12:00 10/14/21 09:38 Saline 0.9% IV 100 mls/hr .Q10H [facility] Administration Heparin Sodium/Sodium Chloride 250 mls @ 10 mls/hr 10/13/21 18:00 10/14/21 05:19 25,000 unit/ Sodium Chloride IV 11.728 units/kg/hr .Q24H [facility] 12.056 mls/hr Titration Protocol 9.728 UNITS/KG/HR Naloxone HCl 0.2 mg 10/12/21 11:31 Naloxone 0.4 Mg/Ml 1 Ml Vial IV Q2M PRN Opioid Reversal Ondansetron HCl 4 mg 10/12/21 14:22 Ondansetron 4 Mg/2 Ml Vial IVP Q4HR PRN Nausea And Vomiting Pantoprazole Sodium 40 mg 10/13/21 09:00 10/14/21 09:27 Pantoprazole 40 Mg/10 Ml Vial IV 40 mg DAILY [facility] Administration Zinc Sulfate 220 mg 10/12/21 14:15 10/14/21 09:27 Zinc Sulfate 220 Mg Cap PO 220 mg DAILY [facility] Administration Intake and Output 10/13/21 10/14/21 10/14/21 22:59 06:59 14:59 Intake Total 597 84 0 Output Total 057 320 4547 Balance 367 -[phone] -[phone] Intake: IV 375 Sodium Chloride 0.9% 1, 375 000 ml @ 130 mls/hr IV . Q7H42M [facility] Rx#:[id number] Intake, IV Titration 84 Amount Heparin Sod,Pork in 0.45% 84 NaCl 25,000 unit In 0.45 % NaCl 1 250ml.bag @ 9. 728 UNITS/KG/HR 10 mls/hr IV .Q24H [facility] Rx#: [id number] Oral 222 0 Output: Urine 100 006 [id number] Other: Voiding Method Indwelling Catheter Indwelling Catheter Indwelling Catheter 10/14/21 04:35 10/14/21 04:35
--- NOTE | 2021-10-14 13:52 | P.CNNES ---
History of Present Illness Consult date: 10/14/21 Requesting physician: Gerard Cooper Reason for Consult: New onset of confusion History of Present Illness: Patient is a 66-year-old male came to the hospital by ambulance on 10/12/2021 at 10:03 AM for shortness of breath for 3 weeks, right leg "to touch. He also complained of pain with walking. Patient had cyanosis of the right foot extending up his calf. EMS was unable to get a pedal pulse. Patient was noted to have significant shortness of breath, he is Sedated. His oxygen saturation was 90%, heart rate 98. Glucose 180. Patient's blood pressure at the scene was 176/112, pulse rate 112, respiration 18 saturation 90%. Patient was diagnosed with pneumonia. Vital signs on arrival blood pressure 126/107, pulse rate 115 temperature 97.6. Patient was initially in the ICU. He was transferred to regular floor yesterday. Apparently yesterday evening, patient became confused. He started hallucinating, became very paranoid, thinking that everyone was trying to kill him, they were giving poison through the IV. He did not behave like this while in the ICU. According to the nursing report, it lasted for at least couple hours. This prompted computed tomography scan of the head as below, and a neurological consultation. CT head from this morning was negative for any acute process. I personally re viewed the computed tomography scan, agree with the findings. Paranasal sinuses are clear. Chest x-ray shows borderline heart size. There are patchy peripheral opacities and also focal posterior basilar opacity. Correlate for possible Covid pneumonia. Patient also was diagnosed with acute right lower extremity ischemia for which patient underwent right lower extremity angiogram. 2-D echo revealed overall left-ventricular systolic function is low normal with an EF between 50-55%. There is a small regarding effusion located near the right ventricle. Patient's blood test shows WBC 17.3 hemoglobin 13.7 normal platelets. Patient is on heparin with PTT 42.2. Electrolytes are normal, renal functions normal, AST is 3 or 11, ALT 99. Hepatitis panel negative. Weeks virus PCR positive. Influenza screen negative. Patient's home medications include calcium, multivitamins. Patient denies hypertension or diabetes. Denies any history of strokes or TIA. He states he quit tobacco 40 years ago. At present patient is very calm, comfortable, appears fairly cognitively intact. Patient states that he is confused, as someone are telling him that he does not have Covid and others are telling that he does have it. Review of Systems Patient denies any chest pain, shortness of breath, abdominal pain nausea vomiting. Denies any double vision, loss of vision although he does veer glasses. He states his buttocks is hurting. Complains of right leg coldness and pain. All other 14 point of review of systems reviewed and noncontributory to the current illness. Past Medical History Past Medical History: Prostate Disorder Additional Past Medical History / Comment(s): Pt tested covid + at [facility] ER on 10/12/21, pt may have had pneumonia years ago. History of Any Multi-Drug Resistant Organisms: None Reported Past Surgical History: Cholecystectomy Additional Past Surgical History / Comment(s): R knee arthroscopy, colonoscopy Past Anesthesia/Blood Transfusion Reactions: No Reported Reaction Smoking Status: Former smoker - Past Family History Father Family Medical History: No Reported History Additional Family Medical History / Comment(s): Father was healthy Mother Family Medical History: No Reported History Additional Family Medical History / Comment(s): Mother was healthy Medications and Allergies Home Medications Medication Instructions Recorded Confirmed Type Calcium Carbonate [Tums] 500 - 1,000 mg PO QID PRN 10/12/21 10/12/21 History Multivit-Min/Folic/Vit K/Lycop 1 tab PO DAILY 10/12/21 10/12/21 History [Men's Multivitamin Tablet] Otc Allergy Med (Unknown) 1 tab PO BID 10/12/21 10/12/21 History Allergies Allergy/AdvReac Type Severity Reaction Status Date / Time No Known Allergies Allergy Verified 10/12/21 11:42 Physical Examination - Vital Signs Vital Signs: Vital Signs Temp Pulse Pulse Resp BP BP Pulse Ox 10/14/21 04:00 98.3 F 82 18 154/69 94 L 10/14/21 02:00 87 18 10/13/21 23:35 98.2 F 87 18 150/73 96 10/13/21 20:30 98.0 F 89 10 L 148/88 93 L 10/13/21 20:00 101 H 48 H 10/13/21 19:30 97 8 L 10/13/21 19:00 93 12 10/13/21 18:30 102 H 36 H 10/13/21 18:00 94 9 L 10/13/21 17:30 91 7 L 10/13/21 17:00 101 H 30 H 141/95 10/13/21 16:30 92 15 155/73 10/13/21 16:00 91 12 161/74 92 L 10/13/21 15:30 98 19 171/87 93 L 10/13/21 15:00 94 32 H 91 L 10/13/21 14:30 92 14 173/75 91 L 10/13/21 14:00 105 H 15 180/89 92 L 10/13/21 12:30 93 12 94 L 10/13/21 12:00 15 152/81 93 L 10/13/21 11:30 90 14 143/75 93 L 10/13/21 11:00 93 37 H 135/71 92 L Intake and Output 10/13/21 10/14/21 10/14/21 22:59 06:59 14:59 Intake Total 597 84 0 Output Total 205 350 850 Balance 265 -896 -746 Intake: IV 375 Sodium Chloride 0.9% 1, 375 000 ml @ 130 mls/hr IV . Q7H42M [facility] Rx#:[id number] Intake, IV Titration 84 Amount Heparin Sod,Pork in 0.45% 84 NaCl 25,000 unit In 0.45 % NaCl 1 250ml.bag @ 9. 728 UNITS/KG/HR 10 mls/hr IV .Q24H [facility] Rx#: [id number] Oral 222 0 Output: Urine 205 350 850 Other: Voiding Method Indwelling Catheter Indwelling Catheter Patient is an elderly male, in no acute distress. Patient is alert awake oriented to time place and person. He knows it is Decemb er 2020 and that he isn't to [facility] in [place]. He knows name of the current president. He states he has 2 children and some grandchildren. Speech and language functions are normal. Attention, concentration and fund of knowledge is appears adequate, detailed testing deferred. Patient can name and repeat. Affect appears normal. On cranial examination, pupils are round and reacting to light, visual alex are full on confrontation, with no neglect on double simultaneous stimulation. His extraocular muscles are intact with no nystagmus. Face is symmetric, tongue protrudes to the midline. Palatal elevation and sensation normal, hearing and shoulder shrug normal, facial sensation normal. Shoulder shrug normal. On muscle strength testing, there is no pronator drift and the strength is normal in bilateral arms distally and proximally. Patient's strength is normal in the left leg. His right leg is very obviously cyanotic, mottled distally in the right foot. The right leg is very cold. Right leg not checked. Deep tendon reflexes are 1+ and plantar is downgoing on the left. Sensory to touch is equal in the upper limbs with no neglect on double simultan eous stimulation. Cerebellar function showed no ataxia for [id number] testing. No dysdiadochokinesia. Tone and bulk of muscles normal. Gait not checked. On general examination, there is no carotid bruit or murmur, S1-S2 audible. Abdomen is soft nontender, bowel sounds present, no organomegaly. Chest is clear to auscultation. Peripheral pulses are not present. Right leg is cold mottled. Results - Laboratory Findings CBC and BMP: 10/14/21 04:35 10/14/21 04:35 Abnormal Lab Findings: Abnormal Labs 10/12/21 10/12/21 10/12/21 10:23 10:23 10:23 WBC 19.2 H RBC 5.97 H Hgb 18.9 H Hct 55.0 H MCV Plt Count 511 H Neutrophils # 15.9 H Lymphocytes # Monocytes # 1.3 H PT 12.1 H INR 1.2 H APTT 20.7 L Fibrinogen D-Dimer 5.54 H Sodium Chloride Carbon Dioxide 20 L BUN 31 H Creatinine 1.40 H Glucose 163 H Plasma Lactic Acid Yonatan Calcium Total Bilirubin 2.0 H AST 407 H ALT 108 H Total Protein Albumin Procalcitonin Coronavirus (PCR) 10/12/21 10/12/21 10/12/21 10:23 10:23 11:38 WBC RBC Hgb Hct MCV Plt Count Neutrophils # Lymphocytes # Monocytes # PT INR APTT Fibrinogen 521 H D-Dimer Sodium Chloride Carbon Dioxide BUN Creatinine Glucose Plasma Lactic Acid Yonatan 3.6 H* Calcium Total Bilirubin AST ALT Total Protein Albumin Procalcitonin Coronavirus (PCR) Detected A 10/12/21 10/12/21 10/12/21 15:01 15:01 15:01 WBC RBC Hgb Hct MCV Plt Count Neutrophils # Lymphocytes # Monocytes # PT 13.2 H INR 1.3 H APTT Fibrinogen D-Dimer Sodium Chloride 109 H Carbon Dioxide 17 L BUN 29 H Creatinine Glucose 178 H Plasma Lactic Acid Yonatan Calcium Total Bilirubin AST ALT Total Protein Albumin Procalcitonin 0.14 H Coronavirus (PCR) 10/12/21 10/12/21 10/13/21 15:01 20:17 02:18 WBC 19.0 H 19.2 H 19.5 H RBC Hgb Hct MCV Plt Count Neutrophils # 17.2 H 17.0 H 16.9 H Lymphocytes # 0.7 L 0.8 L 0.8 L Monocytes # 1.2 H PT INR APTT Fibrinogen D-Dimer Sodium Chloride Carbon Dioxide BUN Creatinine Glucose Plasma Lactic Acid Yonatan Calcium Total Bilirubin AST ALT Total Protein Albumin Procalcitonin Coronavirus (PCR) 10/13/21 10/13/21 10/13/21 08:24 08:24 08:24 WBC 19.3 H RBC Hgb Hct MCV 102.1 H D Plt Count Neutrophils # 16.9 H Lymphocytes # 0.9 L Monocytes # 1.1 H PT INR APTT Fibrinogen D-Dimer >34.10 H Sodium 146 H Chloride 117 H Carbon Dioxide 20 L BUN 25 H Creatinine Glucose 128 H Plasma Lactic Acid Yonatan Calcium Total Bilirubin 1.6 H AST 254 H ALT 113 H Total Protein Albumin 3.2 L Procalcitonin Coronavirus (PCR) 10/13/21 10/14/21 10/14/21 14:56 04:35 04:35 WBC 19.8 H RBC Hgb Hct MCV Plt Count Neutrophils # 18.1 H Lymphocytes # 0.7 L Monocytes # PT INR APTT Fibrinogen D-Dimer >34.10 H Sodium Chloride 112 H Carbon Dioxide 20 L BUN Creatinine Glucose Plasma Lactic Acid Yonatan Calcium 7.8 L Total Bilirubin 1.8 H AST 311 H ALT 99 H Total Protein 5.7 L Albumin 2.6 L Procalcitonin Coronavirus (PCR) 10/14/21 10/14/21 04:35 04:35 WBC 17.3 H RBC Hgb Hct MCV Plt Count Neutrophils # 14.9 H Lymphocytes # Monocytes # PT INR APTT 42.2 H Fibrinogen D-Dimer Sodium Chloride Carbon Dioxide BUN Creatinine Glucose Plasma Lactic Acid Yonatan Calcium Total Bilirubin AST ALT Total Protein Albumin Procalcitonin Coronavirus (PCR) Assessment and Plan Assessment: * Altered mental status, probably delirium, with acute confusion, hallucinati ons, paranoia, now seems to have resolved. * Acute Covid infection * Right leg ischemia, possible right below-knee amputation tomorrow. * Peripheral arterial disease * Abnormal LFTs Plan: * Neurologically patient's examination is nonfocal. His mentation is back to normal. He is not paranoid, or delusional at this time. * Avoid excessive narcotics, hypnotics and sedatives. * We will check ammonia, B12, folate, TSH. * Neurology will continue to follow clinically. Thank you for the consult.
--- NOTE | 2021-10-14 16:17 | P.PN ---
Subjective Progress Note Date: 10/14/21 This is a 66-year-old white male, no major medical illnesses, patient is not vaccinated. Patient has been sick at home for the last 3 weeks. Symptoms have been mostly intermittent cough, shortness of breath, and over the last 2 weeks has been noticing increased pain and swelling in the right lower extremity. In the past few days, patient has been noticing bluish discoloration of the foot. And he was also experiencing pain in the calf region. Patient was brought into the ER, he was found to have positive COVID-19 PCR. Chest x-ray showed patchy peripheral opacities consistent with COVID-19 pneumonia patient was also found to have acute limb ischemia of the right lower extremity consistent with superficial femoral artery thrombosis requiring surgical intervention, patient was seen by vascular surgery on consultation, underwent left iliofemoral angiogram, right lower extremity angiogram and initiation of thrombolysis hoping to salvage the right foot. Postoperatively, patient was admitted to the ICU, and I was asked to see him on consultation. Patient is on 4 L nasal cannula O2 saturation 94%, he is not a great historian, patient was placed on the COVID-19 cocktail, and obviously he is out of the window for Remdesivir, and he does not qualify for Baricitinib. She was noted to have leukocytosis with WBC count of 19.0 hemoglobin of 17.3 d-dimer was 5.54 normal electrolytes except for low bicarb of 17 and elevated creatinine of 1.40 consistent with acute kidney injury, lactic acid was 3.6 improved with hydration went down to 1.7. Liver enzymes were also noted to be elevated with bilirubin of 2.0 AST of 407 and ALT of 108. Reevaluated today on 10/13/21, patient remains in the ICU, continues to have significant ischemic changes of the right foot with seems to be extremely cold, mottled, blue, all the way to the midcalf region. This is in spite of thrombolytics and in spite of heparin. Patient was seen by vascular surgery again today, and I believe he is going back to the catheterization lab, and should have TPA recheck. Other based on my clinical assessment, I have a feeling the patient is going to likely require amputation. Urinary-zepeda the patient is about the same, remains on 4 L nasal cannula, and his O2 saturation is 93%. Does not seem to be in any pulmonary distress. His electrolytes are normal bicarb is 20 WBC count is 19.3. 10/14/2021, the patient is being seen for a follow-up. The patient's respiratory status is stable and the patient remains on 4 L of oxygen by nasal cannula. No worsening shortness of breath. Overnight, the patient had some altered mentation for that reason a CAT scan of the brain was obtained and it showed no evidence of any intracranial hemorrhage. Mother the patient has an ischemic right foot. The right calf and foot remains quite tender the patient is complaining of ongoing discomfort in his right foot. The patient is afebrile hemodynamically stable. No respiratory difficulties. The right foot is essent ially cold and cyanotic. The white cell count of 17.3 with hemoglobin 13.7, sodium is at 138 with a potassium level of 3.9, bicarbonate 20 with a glucose of 94. The patient will likely need a amputation at a later stage. Vascular surgery is still on the case. Echocardiogram showed a preserved LV function with an ejection fraction of 50-55%. Patient remains on IV heparin. IV heparin will be discontinued as of midnight in preparation for surgery for tomorrow. No other issues for now. Objective - Vital Signs Vital signs: Vital Signs Temp 98.6 F 10/14/21 12:00 Pulse 91 10/14/21 14:00 Resp 18 10/14/21 14:00 BP 146/71 10/14/21 12:00 Pulse Ox 93 L 10/14/21 12:00 Intake & Output 10/13/21 10/14/21 10/14/21 18:59 06:59 18:59 Intake Total 1147 84 118 Output Total 245 341 4457 Balance 542 -949 -4616 Intake: IV 925 Sodium Chloride 0.9% 1, 125 000 ml @ 100 mls/hr IV . Q10H [facility] Rx#:[id number] Sodium Chloride 0.9% 1, 750 000 ml @ 130 mls/hr IV . Q7H42M [facility] Rx#:[id number] Intake, IV Titration 84 Amount Heparin Sod,Pork in 0.45% 84 NaCl 25,000 unit In 0.45 % NaCl 1 250ml.bag @ 9. 728 UNITS/KG/HR 10 mls/hr IV .Q24H [facility] Rx#: [id number] Oral 222 118 Output: Urine 155 645 9240 Other: Voiding Method Indwelling Catheter Indwelling Catheter Indwelling Catheter - Exam Physical Exam revealed a 66-year-old white male on 4 liters nasal cannula, in no distress. Head: Atraumatic, normocephalic. HEENT:[Neck is supple.] [No neck masses.] [No thyromegaly.] [No JVD.] Chest: [Symmetrical chest expansion, crackles at the bases. Cardiac Exam: [Normal S1 and S2, no S3 gallop, no murmur.] Abdomen: [Soft, nontender, no megaly, no rebound, no guarding, normal bowel sounds.] Extremities: Right foot is noted to be bluish, mottled all the way to the midcalf region. No pulses. Neurological Exam: [No focal neurologic deficit.] Alert oriented 3 Psychiatric: Normal mood blunt affect, normal mental status examination. - Labs CBC & Chem 7: 10/14/21 04:35 10/14/21 04:35 Labs: Abnormal Lab Results - Last 24 Hours (Table) 10/14/21 10/14/21 10/14/21 Range/Units 04:35 04:35 04:35 WBC 17.3 H (3.8-10.6) k/uL Neutrophils # 14.9 H (1.3-7.7) k/uL APTT (22.0-30.0) sec D-Dimer >34.10 H (<0.60) mg/L FEU Chloride 112 H (98-107) mmol/L Carbon Dioxide 20 L (22-30) mmol/L Calcium 7.8 L (8.4-10.2) mg/dL Total Bilirubin 1.8 H (0.2-1.3) mg/dL AST 311 H (17-59) U/L ALT 99 H (4-49) U/L Total Protein 5.7 L (6.3-8.2) g/dL Albumin 2.6 L (3.5-5.0) g/dL 10/14/21 10/14/21 Range/Units 04:35 11:38 WBC (3.8-10.6) k/uL Neutrophils # (1.3-7.7) k/uL APTT 42.2 H 62.9 H (22.0-30.0) sec D-Dimer (<0.60) mg/L FEU Chloride (98-107) mmol/L Carbon Dioxide (22-30) mmol/L Calcium (8.4-10.2) mg/dL Total Bilirubin (0.2-1.3) mg/dL AST (17-59) U/L ALT (4-49) U/L Total Protein (6.3-8.2) g/dL Albumin (3.5-5.0) g/dL Assessment and Plan Plan: 1 Acute right lower extremity ischemia secondary to arterial thrombosis, patient is status post left iliofemoral angiogram, right lower extremity angiogram and presently on thrombolysis. Postoperative day #2. This was refilled intervention the patient continues to have an ischemic limb and the ishmael n is to proceed with a amputation probably within the next 24 hours. Vascular surgery is on the case. 2 Acute hypoxic respiratory failure secondary to COVID-19 pneumonia, respiratory status remains stable the patient remains on 4 L of oxygen nasal cannula, currently on Decadron 6 mg by mouth on a daily basis 3 Hypercoagulable state and arterial thrombosis secondary to COVID-19 pneumonia/infection 4 Acute lactic acidosis secondary to limb ischemia 5 Acute kidney injury , recovered with hydration 6 altered mentation, CAT scan of the brain is negative. This is probably related to an episode of delirium occurring overnight. Recommendation: Vascular surgery is on the case, consider amputation with the next 24 hours Continued IV heparin overnight and this will be discontinued as of midnight Continue oral Decadron 6 mg by mouth daily Continue COVID-19 cocktail. Monitor mental status Will follow.
[2021-10-14] MEDS: HEPARIN SOD,PORK IN 0.45% NACL 25,000 UNIT in 0.45% NACL 1 250ML.BAG IV SCH (18:46)
[2021-10-14] MEDS: HYDROmorphone 1 MG/ML 1 ML SYRINGE IVP PRN (19:59)
[2021-10-14] MEDS: ATORVASTATIN 40 MG TAB PO SCH (19:59)
[2021-10-15] MEDS: dexAMETHasone 2 MG TAB PO SCH (08:55)
[2021-10-15] MEDS: ASPIRIN 81 MG PO SCH ×2 (08:55→20:31)
[2021-10-15] MEDS: ZINC SULFATE 220 MG CAP PO SCH (08:55)
[2021-10-15] MEDS: PANTOPRAZOLE 40 MG/10 ML VIAL IV SCH (08:55)
[2021-10-15] MEDS: ASCORBIC ACID 500 MG TAB PO SCH ×2 (08:55→20:31)
[2021-10-15] MEDS: CHOLECALCIFEROL 25 MCG (1000 IU) TABLET PO SCH (09:05)
--- NOTE | 2021-10-15 12:13 | P.PN ---
Subjective This is a pleasant 66-year-old male past medical history of prostate disorder and hypertension . 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 We have been asked to see in consultation for cardiac clearance. Patient presents emergency department on 10/12/2021 with complaints of right calf pain for about 3 weeks. Patient also had decreased appetite, some shortness of breath, discoloration to the right leg for several days. Patient is covid-19 positive. Patient was found to have acute limb ischemia of the right lower extremity consistent with superf icial femoral artery thrombosis requiring surgical intervention, patient was seen by vascular surgery on consultation, underwent left iliofemoral angiogram, right lower extremity angiogram and initiation of thrombolysis with heparin and TPA infusion. Patient had the EKOS removed and was taken back to the OR by Dr. Marino. Repeat angiogram did not show any blood flow below the right knee. Plan for patient to have right above the knee amputation with Dr. Marino 10/15/21. Patient denies history of CAD, ME, stroke, Diabetes, dyslipidemia. He does have a history of hypertension, was on medication but discontinued by his primary he states years ago. He is a non-smoker. EKG on admission revealed sinus tachycardia, heart rate 116, PVCs, incomplete right bundle branch block, T wave inversion in lead III and aVF. No prior EKG Echocardiogram revealed EF of 5055%, small pericardial effusion is located near the right ventricle. 10/15/21 Patient seen at bedside, no acute distress. His pain in his right leg is controlled. He denies any chest pain, shortness of breath, palpitations, lightheadedness, dizziness. Plan for OR today for possible BKA vs AKA with Dr. Marino. He is currently maintained on aspirin 81 mg twice a day, atorvastatin 40 mg nightly, IV heparin. PHYSICAL EXAMINATION Vitals reviewed CONSTITUTIONAL: No apparent distress. HEENT: Neck Supple. No JVD. CHEST EXAMINATION: Lungs are clear to auscultation. HEART EXAMINATION: Regular rate and rhythm. S1, S2 heard. ABDOMEN: Soft, nontender. Positive bowel sounds. EXTREMITIES: Right lower extremity with cyanosis to the right foot and decreased sensation to right lower extremity. No lower extremity edema NEUROLOGIC EXAMINATION: Patient is awake, alert and oriented x3. ASSESSMENT Acute Limb ischemia on the right Covid-19 infection Hypertension PLAN -From a cardiology perspective, patient is hemodynamically stable. Benefit of surgery outweighs risk at this time. There are no absolute contraindications to undergo surgery at this time. Patient is able to perform >4 METs levels of activity and does not have any acute cardiac conditions. Nurse Practitioner note has been reviewed, I agree with a documented findings and plan of care. Patient was seen and examined. Objective - Vital Signs Vital signs: Vital Signs Temp 95.6 F L 10/15/21 12:00 Pulse 74 10/15/21 12:00 Resp 18 10/15/21 08:00 BP 130/61 10/15/21 12:00 Pulse Ox 94 L 10/15/21 12:00 Intake & Output 10/14/21 10/15/21 10/15/21 18:59 06:59 18:59 Intake Total 520.153 61.084 Output Total 2050 1100 950 Balance -1529.847 -1038.916 -950 Intake: Intake, IV Titration 162.153 61.084 Amount Heparin Sod,Pork in 0.45% 162.153 61.084 NaCl 25,000 unit In 0.45 % NaCl 1 250ml.bag @ 9. 728 UNITS/KG/HR 10 mls/hr IV .Q24H [facility] Rx#: [id number] Oral 358 Output: Urine 0 1100 950 Other: Voiding Method Indwelling Catheter Indwelling Catheter - Labs CBC & Chem 7: 10/14/21 04:35 10/14/21 04:35 Labs: Abnormal Lab Results - Last 24 Hours (Table) 10/14/21 Range/Units 11:38 APTT 62.9 H (22.0-30.0) sec
[2021-10-15] MEDS ORDERED: MIDAZOLAM 2 MG/2 ML VIAL ONE (13:13)
[2021-10-15] MEDS ORDERED: LACTATED RINGERS 1,000 ML IV ONE (13:13)
[2021-10-15] MEDS ORDERED: PROPOFOL 10 MG/ML 20 ML VIAL IV ONE (13:13)
[2021-10-15] MEDS ORDERED: SODIUM CHLORIDE 0.9% 100 ML with ceFAZolin 2,000 MG IV ONE ×2 (13:40)
--- NOTE | 2021-10-15 14:05 | P.PN ---
Subjective Progress Note Date: 10/15/21 This is a 66-year-old white male, no major medical illnesses, patient is not vaccinated. Patient has been sick at home for the last 3 weeks. Symptoms have been mostly intermittent cough, shortness of breath, and over the last 2 weeks has been noticing increased pain and swelling in the right lower extremity. In the past few days, patient has been noticing bluish discoloration of the foot. And he was also experiencing pain in the calf region. Patient was brought into the ER, he was found to have positive COVID-19 PCR. Chest x-ray showed patchy peripheral opacities consistent with COVID-19 pneumonia patient was also found to have acute limb ischemia of the right lower extremity consistent with superficial femoral artery thrombosis requiring surgical intervention, patient was seen by vascular surgery on consultation, underwent left iliofemoral angiogram, right lower extremity angiogram and initiation of thrombolysis hoping to salvage the right foot. Postoperatively, patient was admitted to the ICU, and I was asked to see him on consultation. Patient is on 4 L nasal cannula O2 saturation 94%, he is not a great historian, patient was placed on the COVID-19 cocktail, and obviously he is out of the window for Remdesivir, and he does not qualify for Baricitinib. She was noted to have leukocytosis with WBC count of 19.0 hemoglobin of 17.3 d-dimer was 5.54 normal electrolytes except for low bicarb of 17 and elevated creatinine of 1.40 consistent with acute kidney injury, lactic acid was 3.6 improved with hydration went down to 1.7. Liver enzymes were also noted to be elevated with bilirubin of 2.0 AST of 407 and ALT of 108. Reevaluated today on 10/13/21, patient remains in the ICU, continues to have significant ischemic changes of the right foot with seems to be extremely cold, mottled, blue, all the way to the midcalf region. This is in spite of thrombolytics and in spite of heparin. Patient was seen by vascular surgery again today, and I believe he is going back to the catheterization lab, and should have TPA recheck. Other based on my clinical assessment, I have a feeling the patient is going to likely require amputation. Urinary-zepeda the patient is about the same, remains on 4 L nasal cannula, and his O2 saturation is 93%. Does not seem to be in any pulmonary distress. His electrolytes are normal bicarb is 20 WBC count is 19.3. 10/14/2021, the patient is being seen for a follow-up. The patient's respiratory status is stable and the patient remains on 4 L of oxygen by nasal cannula. No worsening shortness of breath. Overnight, the patient had some altered mentation for that reason a CAT scan of the brain was obtained and it showed no evidence of any intracranial hemorrhage. Mother the patient has an ischemic right foot. The right calf and foot remains quite tender the patient is complaining of ongoing discomfort in his right foot. The patient is afebrile hemodynamically stable. No respiratory difficulties. The right foot is essent ially cold and cyanotic. The white cell count of 17.3 with hemoglobin 13.7, sodium is at 138 with a potassium level of 3.9, bicarbonate 20 with a glucose of 94. The patient will likely need a amputation at a later stage. Vascular surgery is still on the case. Echocardiogram showed a preserved LV function with an ejection fraction of 50-55%. Patient remains on IV heparin. IV heparin will be discontinued as of midnight in preparation for surgery for tomorrow. No other issues for now. 10/15/2021, the patient is being seen for a follow-up. The patient is doing well. No new complaints. The plan is to proceed with a right lower extremity amputation probably below the knee by vascular surgery and he is scheduled to undergo the procedure at around 1 PM. He is currently off IV heparin. Doing well. Hemodynamically stable. Still on 4 L of Oxymizer nasal cannula. No respiratory distress for now. No other complaints otherwise. No recent blood work otherwise from today. Objective - Vital Signs Vital signs: Vital Signs Temp 95.6 F L 10/15/21 12:00 Pulse 74 10/15/21 12:00 Resp 18 10/15/21 08:00 BP 130/61 10/15/21 12:00 Pulse Ox 94 L 10/15/21 12:00 Intake & Output 10/14/21 10/15/21 10/15/21 18:59 06:59 18:59 Intake Total 520.153 61.084 Output Total 2050 1100 950 Balance -1529.847 -1038.916 -950 Intake: Intake, IV Titration 162.153 61.084 Amount Heparin Sod,Pork in 0.45% 162.153 61.084 NaCl 25,000 unit In 0.45 % NaCl 1 250ml.bag @ 9. 728 UNITS/KG/HR 10 mls/hr IV .Q[facility]H [facility] Rx#: [id number] Oral 358 Output: Urine 2050 1100 950 Other: Voiding Method Indwelling Catheter Indwelling Catheter Indwelling Catheter - Exam Physical Exam revealed a 66-year-old white male on 4 liters nasal cannula, in no distress. Head: Atraumatic, normocephalic. HEENT:[Neck is supple.] [No neck masses.] [No thyromegaly.] [No JVD.] Chest: [Symmetrical chest expansion, crackles at the bases. Cardiac Exam: [Normal S1 and S2, no S3 gallop, no murmur.] Abdomen: [Soft, nontender, no megaly, no rebound, no guarding, normal bowel sounds.] Extremities: Right foot is noted to be bluish, mottled all the way to the midcalf region. No pulses. Neurological Exam: [No focal neurologic deficit.] Alert oriented 3 Psychiatric: Normal mood blunt affect, normal mental status examination. - Labs CBC & Chem 7: 10/14/21 04:35 10/14/21 04:35 Assessment and Plan Plan: 1 Acute right lower extremity ischemia secondary to arterial thrombosis, patient is status post left iliofemoral angiogram, right lower extremity angiogram and presently on thrombolysis. Postoperative day #3. This was refilled intervention the patient continues to have an ischemic limb and the plan is to proceed with a amputation probably within the next 24 hours. Vascular surgery is on the case. 2 Acute hypoxic respiratory failure secondary to COVID-19 pneumonia, respiratory status remains stable the patient remains on 4 L of oxygen nasal cannula, currently on Decadron 6 mg by mouth on a daily basis 3 Hypercoagulable state and arterial thrombosis secondary to COVID-19 pneumonia/infection 4 Acute lactic acidosis secondary to limb ischemia 5 Acute kidney injury , recovered with hydration 6 altered mentation, CAT scan of the brain is negative. This is probably related to an episode of delirium occurring overnight. Recommendation: Vascular surgery is on the case, and the patient is going to undergo a below- knee amputation today Overall pulmonary status is stable The patient is on 40s about 2 by nasal cannula Continue oral Decadron Continue COVID-19 cocktail. Monitor mental status Will follow.
--- NOTE | 2021-10-15 14:58 | P.OP ---
Date of Procedure: 10/15/21 Description of Procedure: Preoperative diagnosis: Right lower extremity acute limb ischemia Postoperative diagnosis: Same Procedure: [Right lower extremity below-knee amputation, wound VAC placement] Surgeon: April Marino D.O. EBL: [50 mL] IV fluids: [See records] Urine output: [See records] Drains: [Wound VAC] Complications: [None immediately apparent] Condition: [Stable to recovery ] Operative indication and findings: [the patient is a 66-year-old male who initially presented with acute to subacute limb ischemia for the past 3 weeks worsening. Currently there is some coloration changes therefore he decided to present to the hospital. Initial attempts were performed at TPA thrombolysis however the superficial femoral artery, popliteal and popliteal segments remained occluded on final imaging. There were some increase collateral channels as well as portions of the superficial femoral and popliteal arteries that were opacified. The patient had marked it improvement of his pain. The mottling and coolness was improved to about the level of the ankle. Given these findings it was discussed he would need an amputation either below or above- knee. Risks and benefits were discussed. He and his family seemingly understand and are willing to proceed as such] Procedure in detail: The patient was brought to the operating room, the operative leg was prepped and draped in the usual sterile manner. 12 cm below the tibial plateau was marked. The calf circumference was measured. Two thirds was utilized for the anterior incision, one third was utilized to create the flap. The incision was marked. The incision was deepened through the subcutaneous tissue and fascia to the level of the bone. The fascia was transected around the level of the incision. There were muscles in the anterior and lateral compartment that appeared to contract with electrocautery. There is a muscle of the superficial posterior that appeared to contract. Some of the deeper muscle appeared marginally viable. Given all these findings of viable appearing tissue, the attention of going forward with a below-knee amputation and leaving it open was decided upon rather than converting to an above-knee amputation at this time. The found be to allow the remaining tissue to demarcate its. Is any further ischemic findings then he will be converted to an above-knee amputation. Anterior compartment muscles were divided. Then the lateral compartment muscles were divided. Dissection was carried down to the level of the bone. The periosteal elevator was used and the tibia was freed from its periosteal tissues. The tibia was divided with an oscillating saw. The same was done of the fibula, approximately 1-1/2-2 cm more proximal to the tibia itself. The posterior flap was created with an amputation knife. Bleeding was controlled with suture ligation of the vessels. Electrocautery was also used for hemostasis. The specimen was removed. The wound was copiously irrigated. The tibia and fibula were smoothed with a rasp. A wound VAC was placed The patient was transferred to PACU in stable condition having tolerated the procedure well
--- NOTE | 2021-10-15 15:56 | P.PN ---
Progress Note - Text Progress Note Date: 10/15/21 Chief Complaint: Right leg pain This is a 66-year-old patient who follows Dr. Stefano Miguel. He presented to ER earlier today with a right calf pain. Symptoms have been coming on for about 3 weeks. Patient is also had decreased appetite for some time. Complaint of fe eling dry in the ER. Some shortness of breath. He did also had discoloration to the right leg for several days. Having pain in the calf. No chest pain. ER physician had called me thinking this was an arterial compromise. Dr. Marino from vascular was consulted. The patient down to the operating room. Patient was discovered to have occlusion of the superficial femoral artery down to the integrity of the leg. Left common femoral artery was accessed. Angiogram was done. And thrombolysis was started. Patient's currently getting TPN heparin drip. In the ICU. Patient is received pain medications and is rather lethargic. Not really able to give much of a history currently. According to the nurse doesn't Doppler in the left leg. Dopplers also present in the right leg up to the knee not below the knee. Patient tested positive for COVID in the ER. Patient was given EKOS with heparin and TPA infusion. October 13: ICU: Patient had theEKOS removed this afternoon. Patient was taken to the OR by Dr. Marino. Repeat angiogram did not show any blood flow below the right knee. Patient's mottling though has improved of the right leg. Walking just above the ankle. Patient has some sensations lower extremity. This point decision is to resume the IV heparin. Patient may still level of getting amputation depending on clinical course. October 14: Patient is being moved to the medical floor. Last night patient had altered mental status. Stat computed tomography scan negative for bleed. Likely delirious. Neurology consulted. Neuro checks. Cardiology consulted for medical clearance. Patient on IV heparin. Tender right leg. Some decrease in mottling. October 15: Patient is pending surgery this morning. Some pain in the right lower extremity. Had been on IV heparin. Breathing stable. Patient related today underwent right below-knee amputation for Dr. Marino. And a wound VAC was placed. Review of systems: Was done for constitutional, cardiovascular, GI, pulmonary. relevant finding as above Active Medications Ascorbic Acid (Ascorbic Acid 500 Mg Tab) 500 mg PO BID [facility] Last Admin: 10/15/21 08:55 Dose: Not Given Documented by: Aspirin (Aspirin 81 Mg) 81 mg PO BID [facility] Last Admin: 10/15/21 08:55 Dose: 81 mg Documented by: Atorvastatin Calcium (Atorvastatin 40 Mg Tab) 40 mg PO HS [facility] Last Admin: 10/14/21 19:59 Dose: 40 mg Documented by: Cholecalciferol (Cholecalciferol 25 Mcg (1000 Iu) Tablet) 25 mcg PO DAILY [facility] Last Admin: 10/15/21 09:05 Dose: Not Given Documented by: Dexamethasone (Dexamethasone 2 Mg Tab) 6 mg PO DAILY [facility] Last Admin: 10/15/21 08:55 Dose: 6 mg Documented by: Heparin Sodium (Porcine) (Heparin Sodium 1,000 Un/Ml (10ml Vl)) 0 unit IV PER PROTOCOL PRN; Protocol PRN Reason: Low PTT Hydromorphone HCl (Hydromorphone 1 Mg/Ml 1 Ml Syringe) 1 mg IVP Q3HR PRN PRN Reason: Severe Pain Last Admin: 10/14/21 19:59 Dose: 1 mg Documented by: Hydromorphone HCl (Hydromorphone 0.5 Mg/0.5 Ml Syringe) 0.5 mg IVP Q3HR PRN PRN Reason: Moderate Pain Sodium Chloride (Saline 0.9%) 1,000 mls @ 100 mls/hr IV .Q10H [facility] Last Admin: 10/14/21 18:48 Dose: 100 mls/hr Documented by: Heparin Sodium/Sodium Chloride (25,000 unit/ Sodium Chloride) 250 mls @ 10 mls/hr IV .Q24H [facility]; Protocol Last Titration: 10/14/21 23:50 Dose: 0 units/kg/hr, 0 mls/hr Documented by: Naloxone HCl (Naloxone 0.4 Mg/Ml 1 Ml Vial) 0.2 mg IV Q2M PRN PRN Reason: Opioid Reversal Ondansetron HCl (Ondansetron 4 Mg/2 Ml Vial) 4 mg IVP Q4HR PRN PRN Reason: Nausea And Vomiting Pantoprazole Sodium (Pantoprazole 40 Mg/10 Ml Vial) 40 mg IV DAILY [facility] Last Admin: 10/15/21 08:55 Dose: 40 mg Documented by: Zinc Sulfate (Zinc Sulfate 220 Mg Cap) 220 mg PO DAILY [facility] Last Admin: 10/15/21 08:55 Dose: Not Given Documented by: Past medical history to include: Prostate disorder Social history: Patient started smoking as a teen and stopped in 1995. No alcohol. Lives alone. 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 Family history: Reviewed, noncontributory to presentation Physical examination: VITAL SIGNS: 95.6, 74, 16, 1:30/61, 94% on 4 L GENERAL: Laying in bed, awake, tired EYES: Pupils equal. Conjunctiva normal. HEENT: External appearance of nose and ears normal, oral cavity grossly normal. NECK: JVD not raised; masses not palpable. HEART: First and second heart sounds are normal; no edema. LUNGS: Respiratory rate normal; decreased breath sounds. ABDOMEN: Soft, nontender, liver spleen not palpable, no masses palpable. Marino catheter PSYCH: AO 3, mood affect normal. EXTREMITY: Mottling of the right lower limb just above the ankle. right calf tenderness. Some sensation is present. INVESTIGATIONS, reviewed in the clinical context: October 14: White count 7.3 hemoglobin 13.7 potassium 3.9 creatinine 0.82 AST 311 ALT 99 Computed tomography scan: Negative October 13: White count 9.8 hemoglobin 15.4 platelets 298 potassium 4.5 BUN 25 creatinine 1.04 AST 254 and ALT 113 Ultrasound: Limited exam. No obvious abnormality. Acute hepatitis panel: Negative White count 19.2 hemoglobin 18.9 platelets 511 2142 BUN 31 creatinine 1.40, repeat 1.19 Lactic acid 3.6 AST 407 ALT 108 Pro-calcitonin 0.14 Coronavirus [PCR]: Detected EKG tracing personally reviewed by me-normal sinus rhythm. Right bundle branch block. ST-T wave changes. PVCs. Assessment and plan: -This is a patient who presents with pain in the right calf which is going on for a few days progressively getting worse. Appears to have had acute on chronic arterial occlusion. Especially of the superficial femoral artery. Patient has aEKOS placed through the left groin. Receive TPN heparin. On October 13 repeat angiogram showed or circulation below the knee. IV heparin resumed. October 15 right below-knee amputation by Dr. Marino. -Acute on chronic PAD, as patient's symptoms came on since around September 26. aspirin, Lipitor. -Acute delirium.: Improved Computed tomography scan been negative. Neurology consulted. EEG -IV heparin monitoring. Follow PTT -Right bundle branch block pattern -Metabolic acidosis Sodium bicarbonate by mouth -Acute kidney injury, possibly ATN, : Improved IV fluids. -Hepatitis, chronicity unknown Acute hepatitis panel: Negative. Repeat labs. -Acute hypoxic respiratory failure from COVID 19 Pulse ox was 89% on room air on presentation. dexamethasone. -Acute COVID 19 pneumonitis Vitamin C vitamin D. Zinc. Dexamethasone. Right below-knee amputation today. Postop orders per Dr. Marino. Continue medications as before. Including steroids.
[2021-10-15] MEDS: SODIUM CHLORIDE 0.9% 1,000 ML IV SCH ×2 (16:10→23:32)
[2021-10-15] MEDS: HEPARIN SOD,PORK IN 0.45% NACL 25,000 UNIT in 0.45% NACL 1 250ML.BAG IV SCH (17:11)
[2021-10-15] MEDS: ATORVASTATIN 40 MG TAB PO SCH (20:31)
[2021-10-15] MEDS: HYDROmorphone 0.5 MG/0.5 ML SYRINGE IVP PRN (20:32)
--- NOTE | 2021-10-15 22:48 | P.PN ---
Subjective Progress Note Date: 10/15/21 Patient was seen for a follow-up. Patient is very alert and awake. Patient had undergone right below-knee amputation yesterday. Patient appears comfortable. Patient denies headache, denies any visual symptoms or dizziness. Patient is laying comfortably in the bed. Watching TV. Objective - Vital Signs Vital signs: Vital Signs Temp 98.0 F 10/15/21 20:00 Pulse 90 10/15/21 20:00 Resp 18 10/15/21 20:00 BP 154/70 10/15/21 20:00 Pulse Ox 93 L 10/15/21 20:00 Intake & Output 10/15/21 10/15/21 10/16/21 06:59 18:59 06:59 Intake Total 61.084 300 Output Total 1100 1345 500 Balance -1038.916 -1045 -500 Intake: IV 300 Intake, IV Titration 61.084 0 Amount Heparin Sod,Pork in 0.45% 61.084 0 NaCl 25,000 unit In 0.45 % NaCl 1 250ml.bag @ 9. 728 UNITS/KG/HR 10 mls/hr IV .Q24H [facility] Rx#: [id number] Output: Urine 1100 1325 500 Estimated Blood Loss 20 Other: Voiding Method Indwelling Catheter Indwelling Catheter Indwelling Catheter # Bowel Movements 1 - Exam Patient's mental status, speech and language functions are normal. No aphasia or dysarthria. Patient can name and repeat. Affect is normal. Patient is pleasant. Patient knows he is in [facility] in [facility]. He knows it is 09/15/2021 and tomorrow is the new year. Cranial nerve examination pupils are round and reacting, visual alex are full, extraocular muscles are intact. Face is symmetric, tongue protrudes to the midline. Shoulder shrug normal. Muscle strength is normal in the arms and the left leg. Patient is status post right below-knee amputation. Sensations are equal. No ataxia. - Labs CBC & Chem 7: 10/14/21 04:35 10/14/21 04:35 Assessment and Plan Assessment: * Altered mental status, probably delirium, with acute confusion, hallucinations, paranoia, now seems to have resolved. Patient's mentation is back to normal. * Acute Covid infection * Right leg ischemia, status post right below-knee amputation 10/14/2021. * Peripheral arterial disease * Abnormal LFTs Plan: * Neurologically patient's examination is nonfocal. His mentation is back to normal. He is not paranoid, or delusional at this time. * Avoid excessive narcotics, hypnotics and sedatives. * Ammonia < 9, B12 865, folate 9.0 which is somewhat borderline, will start replacement, TSH normal at 0.888. * Neurology no other workup indicated. Neurology will sign off. Please reconsult neurology if any concerns.
[2021-10-16] MEDS ORDERED: HYDROmorphone 0.5 MG/0.5 ML SYRINGE IVP PRN (07:42)
[2021-10-16] MEDS ORDERED: ONDANSETRON 4 MG/2 ML VIAL IVP ONE (07:42)
[2021-10-16] MEDS ORDERED: DEXAMETHASONE SOD PHOSPHATE 4 MG/ML 1 ML VIAL IV ONE (07:42)
[2021-10-16] MEDS: LACTATED RINGERS 1,000 ML IV SCH ×2 (07:46→07:48)
[2021-10-16 08:24] LABS: Basophils % (A) 0 %; Eosinophils # (A) 0.1 k/uL (0-0.7); Eosinophils % (A) 1 %; HGB 13.4 gm/dL (13.0-17.5); Lymphocytes # (A) 1.3 k/uL (1.0-4.8); Lymphocytes % (A) 8 %; MCHC 32.8 g/dL (31.0-37.0); MCV 94.4 fL (80.0-100.0); Mean Platelet Volume 10.8; Monocytes % (A) 6 %; Neutrophils # (A) 13.8 k/uL (1.3-7.7); Neutrophils % (A) 84 %; Platelet Count 224 k/uL (150-450); RBC 4.34 m/uL (4.30-5.90); RDW 13.1 % (11.5-15.5); WBC 16.5 k/uL (3.8-10.6)
[2021-10-16 08:35] LABS: African American GFR (CKD) >90 (>60 ml/min/1.73 sqM); Anion Gap 6 mmol/L; Blood Urea Nitrogen 15 mg/dL (9-20); Calcium 7.9 mg/dL (8.4-10.2); Carbon Dioxide 22 mmol/L (22-30); Chloride 109 mmol/L (98-107); Glucose 103 mg/dL (74-99); Non-African American GFR(CKD) >90 (>60 ml/min/1.73 sqM); Potassium 4.1 mmol/L (3.5-5.1); Sodium 137 mmol/L (137-145)
[2021-10-16] MEDS: FOLIC ACID 1 MG TAB PO SCH (09:14)
[2021-10-16] MEDS: PANTOPRAZOLE 40 MG/10 ML VIAL IV SCH (09:14)
[2021-10-16] MEDS: ASPIRIN 81 MG PO SCH ×2 (09:14→19:30)
[2021-10-16] MEDS: dexAMETHasone 2 MG TAB PO SCH (09:14)
[2021-10-16] MEDS: ZINC SULFATE 220 MG CAP PO SCH (09:14)
[2021-10-16] MEDS: CHOLECALCIFEROL 25 MCG (1000 IU) TABLET PO SCH (09:14)
[2021-10-16] MEDS: ASCORBIC ACID 500 MG TAB PO SCH ×2 (09:14→19:30)
[2021-10-16] MEDS: HYDROmorphone 0.5 MG/0.5 ML SYRINGE IVP PRN ×3 (09:15→20:57)
--- NOTE | 2021-10-16 09:33 | P.PN ---
Subjective This is a pleasant 66-year-old male past medical history of prostate disorder and hypertension . 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 We have been asked to see in consultation for cardiac clearance. Patient presents emergency department on 10/12/2021 with complaints of right calf pain for about 3 weeks. Patient also had decreased appetite, some shortness of breath, discoloration to the right leg for several days. Patient is covid-19 positive. Patient was found to have acute limb ischemia of the right lower extremity consistent with super ficial femoral artery thrombosis requiring surgical intervention, patient was seen by vascular surgery on consultation, underwent left iliofemoral angiogram, right lower extremity angiogram and initiation of thrombolysis with heparin and TPA infusion. Patient had the EKOS removed and was taken back to the OR by Dr. Marino. Repeat angiogram did not show any blood flow below the right knee. Plan for patient to have right above the knee amputation with Dr. Marino 10/15/21. Patient denies history of CAD, ID, stroke, Diabetes, dyslipidemia. He does have a history of hypertension, was on medication but discontinued by his primary he states years ago. He is a non-smoker. EKG on admission revealed sinus tachycardia, heart rate 116, PVCs, incomplete right bundle branch block, T wave inversion in lead III and aVF. No prior EKG Echocardiogram revealed EF of 5055%, small pericardial effusion is located near the right ventricle. 10/15/21 Patient seen at bedside, no acute distress. His pain in his right leg is controlled. He denies any chest pain, shortness of breath, palpitations, lightheadedness, dizziness. Plan for OR today for possible BKA vs AKA with Dr. Marino. He is currently maintained on aspirin 81 mg twice a day, atorvastatin 40 mg nightly, IV heparin. 10/16 Patient seen from [facility]. Patient admitting to continued right lower extremity pain which feels like a burning sensation and light his leg is on a pile of knives. Appears he is having some phantom leg pain. Denies any chest pain or pressure. No changr in SOB. PHYSICAL EXAMINATION Vitals reviewed CONSTITUTIONAL: No apparent distress. HEENT: Neck Supple. No JVD. CHEST EXAMINATION: Lungs are clear to auscultation. HEART EXAMINATION: Regular rate and rhythm. S1, S2 heard. ABDOMEN: Soft, nontender. Positive bowel sounds. EXTREMITIES: Right lower extremity with cyanosis to the right foot and decreased sensation to right lower extremity. No lower extremity edema NEUROLOGIC EXAMINATION: Patient is awake, alert and oriented x3. ASSESSMENT Acute Limb ischemia on the right Covid-19 infection Hypertension PLAN Patient appears of tolerated surgery well. He is still having phantom pain. No significant chest pain or pressure. No further recommendations from cardiology standpoint. Please call with any questions. Objective - Vital Signs Vital signs: Vital Signs Temp 97.8 F 10/16/21 03:30 Pulse 69 10/16/21 03:30 Resp 18 10/16/21 03:30 BP 147/67 10/16/21 03:30 Pulse Ox 95 10/16/21 03:30 Intake & Output 10/15/21 10/16/21 10/16/21 18:59 06:59 18:59 Intake Total 300 240.976 Output Total 1345 1150 Balance -1045 -909.024 Intake: IV 300 Intake, IV Titration 0 240.976 Amount Heparin Sod,Pork in 0.45% 0 80.976 NaCl 25,000 unit In 0.45 % NaCl 1 250ml.bag @ 9. 728 UNITS/KG/HR 10 mls/hr IV .Q24H [facility] Rx#: [id number] Lactated Ringers 1,000 ml 160 @ 0 mls/hr IV [facility] Rx#:[id number] Output: Urine 1325 1150 Estimated Blood Loss 20 Other: Voiding Method Indwelling Catheter Indwelling Catheter # Bowel Movements 1 - Labs CBC & Chem 7: 10/16/21 07:27 10/16/21 07:27 Labs: Abnormal Lab Results - Last 24 Hours (Table) 10/15/21 10/16/21 10/16/21 Range/Units 23:03 07:27 07:27 WBC 16.5 H (3.8-10.6) k/uL Neutrophils # 13.8 H (1.3-7.7) k/uL APTT 38.2 H (22.0-30.0) sec Chloride 109 H (98-107) mmol/L Glucose 103 H (74-99) mg/dL Calcium 7.9 L (8.4-10.2) mg/dL 10/16/21 Range/Units 07:27 WBC (3.8-10.6) k/uL Neutrophils # (1.3-7.7) k/uL APTT 47.7 H (22.0-30.0) sec Chloride (98-107) mmol/L Glucose (74-99) mg/dL Calcium (8.4-10.2) mg/dL
--- NOTE | 2021-10-16 11:38 | P.PN ---
Subjective Progress Note Date: 10/16/21 This is a 66-year-old white male, no major medical illnesses, patient is not vaccinated. Patient has been sick at home for the last 3 weeks. Symptoms have been mostly intermittent cough, shortness of breath, and over the last 2 weeks has been noticing increased pain and swelling in the right lower extremity. In the past few days, patient has been noticing bluish discoloration of the foot. And he was also experiencing pain in the calf region. Patient was brought into the ER, he was found to have positive COVID-19 PCR. Chest x-ray showed patchy peripheral opacities consistent with COVID-19 pneumonia patient was also found to have acute limb ischemia of the right lower extremity consistent with superficial femoral artery thrombosis requiring surgical intervention, patient was seen by vascular surgery on consultation, underwent left iliofemoral angiogram, right lower extremity angiogram and initiation of thrombolysis hoping to salvage the right foot. Postoperatively, patient was admitted to the ICU, and I was asked to see him on consultation. Patient is on 4 L nasal cannula O2 saturation 94%, he is not a great historian, patient was placed on the COVID-19 cocktail, and obviously he is out of the window for Remdesivir, and he does not qualify for Baricitinib. She was noted to have leukocytosis with WBC count of 19.0 hemoglobin of 17.3 d-dimer was 5.54 normal electrolytes except for low bicarb of 17 and elevated creatinine of 1.40 consistent with acute kidney injury, lactic acid was 3.6 improved with hydration went down to 1.7. Liver enzymes were also noted to be elevated with bilirubin of 2.0 AST of 407 and ALT of 108. Reevaluated today on 10/13/21, patient remains in the ICU, continues to have significant ischemic changes of the right foot with seems to be extremely cold, mottled, blue, all the way to the midcalf region. This is in spite of thrombolytics and in spite of heparin. Patient was seen by vascular surgery again today, and I believe he is going back to the catheterization lab, and should have TPA recheck. Other based on my clinical assessment, I have a feeling the patient is going to likely require amputation. Urinary-zepeda the patient is about the same, remains on 4 L nasal cannula, and his O2 saturation is 93%. Does not seem to be in any pulmonary distress. His electrolytes are normal bicarb is 20 WBC count is 19.3. 10/14/2021, the patient is being seen for a follow-up. The patient's respiratory status is stable and the patient remains on 4 L of oxygen by nasal cannula. No worsening shortness of breath. Overnight, the patient had some altered mentation for that reason a CAT scan of the brain was obtained and it showed no evidence of any intracranial hemorrhage. Mother the patient has an ischemic right foot. The right calf and foot remains quite tender the patient is complaining of ongoing discomfort in his right foot. The patient is afebrile hemodynamically stable. No respiratory difficulties. The right foot is essent ially cold and cyanotic. The white cell count of 17.3 with hemoglobin 13.7, sodium is at 138 with a potassium level of 3.9, bicarbonate 20 with a glucose of 94. The patient will likely need a amputation at a later stage. Vascular surgery is still on the case. Echocardiogram showed a preserved LV function with an ejection fraction of 50-55%. Patient remains on IV heparin. IV heparin will be discontinued as of midnight in preparation for surgery for tomorrow. No other issues for now. 10/15/2021, the patient is being seen for a follow-up. The patient is doing well. No new complaints. The plan is to proceed with a right lower extremity amputation probably below the knee by vascular surgery and he is scheduled to undergo the procedure at around 1 PM. He is currently off IV heparin. Doing well. Hemodynamically stable. Still on 4 L of Oxymizer nasal cannula. No respiratory distress for now. No other complaints otherwise. No recent blood work otherwise from today. 10/16/2021, the patient is being seen for a follow-up. Remains on oxygen at 4 L per minute. Underwent a below-knee position of the right lower extremity. The patient's right lower extremity is also connected to wound VAC. His main complaint is pain and the patient is receiving Dilaudid 1 mg every 3 hours on a when necessary basis for postsurgical pain. The patient remains on lactated Ringer at 20 mL an hour. He remains on Decadron 6 mg by mouth daily. Altered mentation. No respiratory distress. He was provided incentive spirometer. Is currently off IV heparin. His taken aspirin. Blood work from today shows a white cell count was 16.7 with hemoglobin of 13.4. Renal function is stable. Creatinine is 0.7. Sodium is at 137. Objective - Vital Signs Vital signs: Vital Signs Temp 97.9 F 10/16/21 08:00 Pulse 82 10/16/21 08:00 Resp 16 10/16/21 08:00 BP 164/74 10/16/21 08:00 Pulse Ox 92 L 10/16/21 08:00 Intake & Output 10/15/21 10/16/21 10/16/21 18:59 06:59 18:59 Intake Total 300 240.976 Output Total 1345 1150 Balance -1045 -909.024 Intake: IV 300 Intake, IV Titration 0 240.976 Amount Heparin Sod,Pork in 0.45% 0 80.976 NaCl 25,000 unit In 0.45 % NaCl 1 250ml.bag @ 9. 728 UNITS/KG/HR 10 mls/hr IV .Q24H [facility] Rx#: [id number] Lactated Ringers 1,000 ml 160 @ 0 mls/hr IV [facility] Rx#:[id number] Output: Urine 1325 1150 Estimated Blood Loss 20 Other: Voiding Method Indwelling Catheter Indwelling Catheter # Bowel Movements 1 - Exam Physical Exam revealed a 66-year-old white male on 4 liters nasal cannula, in no distress. Head: Atraumatic, normocephalic. HEENT:[Neck is supple.] [No neck masses.] [No thyromegaly.] [No JVD.] Chest: [Symmetrical chest expansion, crackles at the bases. Cardiac Exam: [Normal S1 and S2, no S3 gallop, no murmur.] Abdomen: [Soft, nontender, no megaly, no rebound, no guarding, normal bowel sounds.] Extremities: Postsurgical changes involving the right lower extremity as the patient undergone amputation and the wound stump is connected to wound VAC for now. Neurological Exam: [No focal neurologic deficit.] Alert oriented 3 Psychiatric: Normal mood blunt affect, normal mental status examination. - Labs CBC & Chem 7: 10/16/21 07:27 10/16/21 07:27 Labs: Abnormal Lab Results - Last 24 Hours (Table) 10/15/21 10/16/21 10/16/21 Range/Units 23:03 07:27 07:27 WBC 16.5 H (3.8-10.6) k/uL Neutrophils # 13.8 H (1.3-7.7) k/uL APTT 38.2 H (22.0-30.0) sec Chloride 109 H (98-107) mmol/L Glucose 103 H (74-99) mg/dL Calcium 7.9 L (8.4-10.2) mg/dL 10/16/21 Range/Units 07:27 WBC (3.8-10.6) k/uL Neutrophils # (1.3-7.7) k/uL APTT 47.7 H (22.0-30.0) sec Chloride (98-107) mmol/L Glucose (74-99) mg/dL Calcium (8.4-10.2) mg/dL Assessment and Plan Plan: 1 Acute right lower extremity ischemia secondary to arterial thrombosis, post failed vascular intervention and ultimately the patient required below-knee amputation. The patient is currently postop day #1. The patient underwent a right below-knee amputation along with replacement on the wound VAC. 2 Acute hypoxic respiratory failure secondary to COVID-19 pneumonia, respiratory status remains stable the patient remains on 4 L of oxygen nasal cannula, currently on Decadron 6 mg by mouth on a daily basis, overall respiratory status remains stable as the patient is being treated for cholinesterase pneumonia. 3 Hypercoagulable state and arterial thrombosis secondary to COVID-19 pneumonia/infection 4 Acute lactic acidosis secondary to limb ischemia 5 Acute kidney injury , recovered with hydration 6 altered mentation, CAT scan of the brain is negative. This is probably related to an episode of delirium occurring overnight. Recommendation: Treat post surgical pain with Dilaudid Overall pulmonary status is stable The patient is on 4 L of oxygen by nasal cannula Continue oral Decadron Continue COVID-19 cocktail. Monitor mental status Clinically stable for now. Provide incentive spirometer.
[2021-10-16] MEDS: SODIUM CHLORIDE 0.9% 1,000 ML IV SCH ×2 (11:57→19:30)
[2021-10-16] MEDS: HEPARIN SOD,PORK IN 0.45% NACL 25,000 UNIT in 0.45% NACL 1 250ML.BAG IV SCH (12:03)
[2021-10-16] MEDS: HYDROcodone/APAP 5-325MG 1 EACH TAB PO PRN ×2 (12:04→19:30)
--- NOTE | 2021-10-16 14:31 | P.PN ---
Subjective Progress Note Date: 10/16/21 pt s/e resting comfortably after pain medication. did have some occlusion of the wound vac, was fixed by changing trac pad. Right lower extremity wound VAC clean, dry, intact. Flap Without evidence of cy anosis Right lower extremity below-knee amputation Right lower extremity ischemia Covid Plan for take back to the OR on 10/18 2021 for possible closure versus above-knee amputation at that time. Continue anticoagulant patient this time. Hold anticoagulation at midnight on Monday for procedure Monday. Objective - Vital Signs Vital signs: Vital Signs Temp 97.8 F 10/16/21 11:54 Pulse 78 10/16/21 11:54 Resp 16 10/16/21 11:54 BP 157/77 10/16/21 11:54 Pulse Ox 93 L 10/16/21 11:54 Intake & Output 10/15/21 10/16/21 10/16/21 18:59 06:59 18:59 Intake Total 300 240.976 169.024 Output Total 1345 1150 Balance -1045 -909.024 169.024 Intake: IV 300 Intake, IV Titration 0 240.976 169.024 Amount Heparin Sod,Pork in 0.45% 0 80.976 169.024 NaCl 25,000 unit In 0.45 % NaCl 1 250ml.bag @ 9. 728 UNITS/KG/HR 10 mls/hr IV .Q24H [facility] Rx#: [id number] Lactated Ringers 1,000 ml 160 @ 0 mls/hr IV [facility] Rx#:[id number] Output: Urine 1325 1150 Estimated Blood Loss 20 Other: Voiding Method Indwelling Catheter Indwelling Catheter # Bowel Movements 1 - Labs CBC & Chem 7: 10/16/21 07:27 10/16/21 07:27 Labs: Abnormal Lab Results - Last 24 Hours (Table) 10/15/21 10/16/21 10/16/21 Range/Units 23:03 07:27 07:27 WBC 16.5 H (3.8-10.6) k/uL Neutrophils # 13.8 H (1.3-7.7) k/uL APTT 38.2 H (22.0-30.0) sec Chloride 109 H (98-107) mmol/L Glucose 103 H (74-99) mg/dL Calcium 7.9 L (8.4-10.2) mg/dL 10/16/21 Range/Units 07:27 WBC (3.8-10.6) k/uL Neutrophils # (1.3-7.7) k/uL APTT 47.7 H (22.0-30.0) sec Chloride (98-107) mmol/L Glucose (74-99) mg/dL Calcium (8.4-10.2) mg/dL
--- NOTE | 2021-10-16 14:55 | P.PN ---
Progress Note - Text Progress Note Date: 10/16/21 Chief Complaint: Right leg pain This is a 66-year-old patient who follows Dr. Stefano Miguel. He presented to ER earlier today with a right calf pain. Symptoms have been coming on for about 3 weeks. Patient is also had decreased appetite for some time. Complaint of fe eling dry in the ER. Some shortness of breath. He did also had discoloration to the right leg for several days. Having pain in the calf. No chest pain. ER physician had called me thinking this was an arterial compromise. Dr. Marino from vascular was consulted. The patient down to the operating room. Patient was discovered to have occlusion of the superficial femoral artery down to the integrity of the leg. Left common femoral artery was accessed. Angiogram was done. And thrombolysis was started. Patient's currently getting TPN heparin drip. In the ICU. Patient is received pain medications and is rather lethargic. Not really able to give much of a history currently. According to the nurse doesn't Doppler in the left leg. Dopplers also present in the right leg up to the knee not below the knee. Patient tested positive for COVID in the ER. Patient was given EKOS with heparin and TPA infusion. October 13: ICU: Patient had theEKOS removed this afternoon. Patient was taken to the OR by Dr. Marino. Repeat angiogram did not show any blood flow below the right knee. Patient's mottling though has improved of the right leg. Walking just above the ankle. Patient has some sensations lower extremity. This point decision is to resume the IV heparin. Patient may still level of getting amputation depending on clinical course. October 14: Patient is being moved to the medical floor. Last night patient had altered mental status. Stat computed tomography scan negative for bleed. Likely delirious. Neurology consulted. Neuro checks. Cardiology consulted for medical clearance. Patient on IV heparin. Tender right leg. Some decrease in mottling. October 15: Patient is pending surgery this morning. Some pain in the right lower extremity. Had been on IV heparin. Breathing stable. Patient related today underwent right below-knee amputation for Dr. Marino. And a wound VAC was placed. October 16: Decreased appetite. Some pain present. On nasal cannula. Ordered incentive spirometry. Review of systems: Was done for constitutional, cardiovascular, GI, pulmonary. relevant finding as above Active Medications Hydrocodone Bitart/Acetaminophen (Hydrocodone/Apap 5-325mg 1 Each Tab) 1 each PO Q4HR PRN PRN Reason: Moderate Pain Last Admin: 10/16/21 12:04 Dose: 1 each Documented by: Ascorbic Acid (Ascorbic Acid 500 Mg Tab) 500 mg PO BID REPLACED BY [facility] Last Admin: 10/16/21 09:14 Dose: 500 mg Documented by: Aspirin (Aspirin 81 Mg) 81 mg PO BID REPLACED BY [facility] Last Admin: 10/16/21 09:14 Dose: 81 mg Documented by: Atorvastatin Calcium (Atorvastatin 40 Mg Tab) 40 mg PO HS REPLACED BY [facility] Last Admin: 10/15/21 20:31 Dose: 40 mg Documented by: Cholecalciferol (Cholecalciferol 25 Mcg (1000 Iu) Tablet) 25 mcg PO DAILY REPLACED BY [facility] Last Admin: 10/16/21 09:14 Dose: 25 mcg Documented by: Dexamethasone (Dexamethasone 2 Mg Tab) 6 mg PO DAILY REPLACED BY [facility] Last Admin: 10/16/21 09:14 Dose: 6 mg Documented by: Folic Acid (Folic Acid 1 Mg Tab) 1 mg PO DAILY REPLACED BY [facility] Last Admin: 10/16/21 09:14 Dose: 1 mg Documented by: Heparin Sodium (Porcine) (Heparin Sodium 1,000 Un/Ml (10ml Vl)) 0 unit IV PER PROTOCOL PRN; Protocol PRN Reason: Low PTT Hydromorphone HCl (Hydromorphone 1 Mg/Ml 1 Ml Syringe) 1 mg IVP Q3HR PRN PRN Reason: Severe Pain Last Admin: 10/14/21 19:59 Dose: 1 mg Documented by: Hydromorphone HCl (Hydromorphone 0.5 Mg/0.5 Ml Syringe) 0.5 mg IVP Q3HR PRN PRN Reason: Moderate Pain Last Admin: 10/16/21 09:48 Dose: 0.5 mg Documented by: Hydromorphone HCl (Hydromorphone 0.5 Mg/0.5 Ml Syringe) 0.5 mg IVP Q5M PRN PRN Reason: Phase I - Pain Control Stop: 10/16/21 20:00 Sodium Chloride (Saline 0.9%) 1,000 mls @ 100 mls/hr IV .Q10H REPLACED BY [facility] Last Admin: 10/16/21 11:57 Dose: Not Given Documented by: Heparin Sodium/Sodium Chloride (25,000 unit/ Sodium Chloride) 250 mls @ 10 mls/hr IV .Q24H REPLACED BY [facility]; Protocol Last Admin: 10/16/21 12:03 Dose: 13.73 units/kg/hr, 14.114 mls/hr Documented by: Lactated Ringer's (Lactated Ringers) 1,000 mls @ 20 mls/hr IV .Q24H REPLACED BY [facility] Last Admin: 10/16/21 07:46 Dose: Not Given Documented by: Lactated Ringer's (Lactated Ringers) 1,000 mls @ 20 mls/hr IV .Q24H REPLACED BY [facility] Last Admin: 10/16/21 07:48 Dose: Not Given Documented by: Naloxone HCl (Naloxone 0.4 Mg/Ml 1 Ml Vial) 0.2 mg IV Q2M PRN PRN Reason: Opioid Reversal Ondansetron HCl (Ondansetron 4 Mg/2 Ml Vial) 4 mg IVP Q4HR PRN PRN Reason: Nausea And Vomiting Pantoprazole Sodium (Pantoprazole 40 Mg/10 Ml Vial) 40 mg IV DAILY REPLACED BY [facility] Last Admin: 10/16/21 09:14 Dose: 40 mg Documented by: Zinc Sulfate (Zinc Sulfate 220 Mg Cap) 220 mg PO DAILY REPLACED BY [facility] Last Admin: 10/16/21 09:14 Dose: 220 mg Documented by: Past medical history to include: Prostate disorder Social history: Patient started smoking as a teen and stopped in 1995. No alcohol. Lives alone. 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 Family history: Reviewed, noncontributory to presentation Physical examination: VITAL SIGNS: 97.8, 78, 16, 157 with 77, 93% on 4 L GENERAL: Laying in bed, awake, tired LUNGS: Respiratory rate increased. PSYCH: AO 3, mood affect normal. EXTREMITY: Right below-knee amputation Rest of the exam as per nursing INVESTIGATIONS, reviewed in the clinical context: October 16: WBC 16.5 hemoglobin 13.4 potassium 4.1 creatinine 0.71 October 14: White count 7.3 hemoglobin 13.7 potassium 3.9 creatinine 0.82 AST 311 ALT 99 Computed tomography scan: Negative October 13: White count 9.8 hemoglobin 15.4 platelets 298 potassium 4.5 BUN 25 creatinine 1.04 AST 254 and ALT 113 Ultrasound: Limited exam. No obvious abnormality. Acute hepatitis panel: Negative White count 19.2 hemoglobin 18.9 platelets 511 2142 BUN 31 creatinine 1.40, repeat 1.19 Lactic acid 3.6 AST 407 ALT 108 Pro-calcitonin 0.14 Coronavirus [PCR]: Detected EKG tracing personally reviewed by me-normal sinus rhythm. Right bundle branch block. ST-T wave changes. PVCs. Assessment and plan: -This is a patient who presents with pain in the right calf which is going on for a few days progressively getting worse. Appears to have had acute on chronic arterial occlusion. Especially of the superficial femoral artery. Patient has aEKOS placed through the left groin. Receive TPN heparin. On October 13 repeat angiogram showed or circulation below the knee. IV heparin resumed. October 15 right below-knee amputation by Dr. Marino. -Acute on chronic PAD, as patient's symptoms came on since around September 26. aspirin, Lipitor. -Acute delirium.: Improved Computed tomography scan been negative. Neurology consulted. EEG -IV heparin monitoring. Follow PTT -Right bundle branch block pattern -Metabolic acidosis Sodium bicarbonate by mouth -Acute kidney injury, possibly ATN, : Improved IV fluids. -Hepatitis, chronicity unknown Acute hepatitis panel: Negative. Repeat labs. -Acute hypoxic respiratory failure from COVID 19 Pulse ox was 89% on room air on presentation. dexamethasone. -Acute COVID 19 pneumonitis Vitamin C vitamin D. Zinc. Dexamethasone. Right below-knee amputation Continue medications as before. Incentive spirometry. Encourage oral intake.
[2021-10-16] MEDS: ATORVASTATIN 40 MG TAB PO SCH (19:30)
[2021-10-17] MEDS: HYDROmorphone 1 MG/ML 1 ML SYRINGE IVP PRN ×2 (00:02→20:07)
[2021-10-17] MEDS: HEPARIN SOD,PORK IN 0.45% NACL 25,000 UNIT in 0.45% NACL 1 250ML.BAG IV SCH (00:02)
[2021-10-17] MEDS: LACTATED RINGERS 1,000 ML IV SCH ×2 (02:29)
[2021-10-17] MEDS: SODIUM CHLORIDE 0.9% 1,000 ML IV SCH ×2 (04:28→14:23)
[2021-10-17] MEDS: ASPIRIN 81 MG PO SCH ×2 (08:52→20:07)
[2021-10-17] MEDS: FOLIC ACID 1 MG TAB PO SCH (08:52)
[2021-10-17] MEDS: dexAMETHasone 2 MG TAB PO SCH (08:52)
[2021-10-17] MEDS: ASCORBIC ACID 500 MG TAB PO SCH ×2 (08:52→20:07)
[2021-10-17] MEDS: CHOLECALCIFEROL 25 MCG (1000 IU) TABLET PO SCH (08:52)
[2021-10-17] MEDS: ZINC SULFATE 220 MG CAP PO SCH (08:52)
[2021-10-17] MEDS: PANTOPRAZOLE 40 MG/10 ML VIAL IV SCH (08:52)
[2021-10-17 09:05] LABS: HCT 45.8 % (39.0-53.0); Hypochromasia Slight; MCH 31.7 pg (25.0-35.0); MCHC 32.7 g/dL (31.0-37.0); MCV 96.7 fL (80.0-100.0); Mean Platelet Volume 9.6; Platelet Count 246 k/uL (150-450); RBC 4.74 m/uL (4.30-5.90); RDW 13.2 % (11.5-15.5); WBC 19.5 k/uL (3.8-10.6)
[2021-10-17 09:18] LABS: Partial Thromboplastin Time 69.2 sec (22.0-30.0)
[2021-10-17] MEDS: HYDROmorphone 0.5 MG/0.5 ML SYRINGE IVP PRN (09:22)
[2021-10-17 10:05] LABS: ALT 201 U/L (4-49); AST 282 U/L (17-59); African American GFR (CKD) >90 (>60 ml/min/1.73 sqM); Alkaline Phosphatase 170 U/L (38-126); Anion Gap 8 mmol/L; Blood Urea Nitrogen 17 mg/dL (9-20); Calcium 8.6 mg/dL (8.4-10.2); Carbon Dioxide 22 mmol/L (22-30); Chloride 107 mmol/L (98-107); Glucose 105 mg/dL (74-99); Non-African American GFR(CKD) >90 (>60 ml/min/1.73 sqM); Potassium 4.3 mmol/L (3.5-5.1); Sodium 137 mmol/L (137-145); Total Bilirubin 0.9 mg/dL (0.2-1.3); Total Protein 6.4 g/dL (6.3-8.2)
--- NOTE | 2021-10-17 11:52 | P.PN ---
Subjective Progress Note Date: 10/17/21 This is a 66-year-old white male, no major medical illnesses, patient is not vaccinated. Patient has been sick at home for the last 3 weeks. Symptoms have been mostly intermittent cough, shortness of breath, and over the last 2 weeks has been noticing increased pain and swelling in the right lower extremity. In the past few days, patient has been noticing bluish discoloration of the foot. And he was also experiencing pain in the calf region. Patient was brought into the ER, he was found to have positive COVID-19 PCR. Chest x-ray showed patchy peripheral opacities consistent with COVID-19 pneumonia patient was also found to have acute limb ischemia of the right lower extremity consistent with superficial femoral artery thrombosis requiring surgical intervention, patient was seen by vascular surgery on consultation, underwent left iliofemoral angiogram, right lower extremity angiogram and initiation of thrombolysis hoping to salvage the right foot. Postoperatively, patient was admitted to the ICU, and I was asked to see him on consultation. Patient is on 4 L nasal cannula O2 saturation 94%, he is not a great historian, patient was placed on the COVID-19 cocktail, and obviously he is out of the window for Remdesivir, and he does not qualify for Baricitinib. She was noted to have leukocytosis with WBC count of 19.0 hemoglobin of 17.3 d-dimer was 5.54 normal electrolytes except for low bicarb of 17 and elevated creatinine of 1.40 consistent with acute kidney injury, lactic acid was 3.6 improved with hydration went down to 1.7. Liver enzymes were also noted to be elevated with bilirubin of 2.0 AST of 407 and ALT of 108. Reevaluated today on 10/13/21, patient remains in the ICU, continues to have significant ischemic changes of the right foot with seems to be extremely cold, mottled, blue, all the way to the midcalf region. This is in spite of thrombolytics and in spite of heparin. Patient was seen by vascular surgery again today, and I believe he is going back to the catheterization lab, and should have TPA recheck. Other based on my clinical assessment, I have a feeling the patient is going to likely require amputation. Urinary-zepeda the patient is about the same, remains on 4 L nasal cannula, and his O2 saturation is 93%. Does not seem to be in any pulmonary distress. His electrolytes are normal bicarb is 20 WBC count is 19.3. 10/14/2021, the patient is being seen for a follow-up. The patient's respiratory status is stable and the patient remains on 4 L of oxygen by nasal cannula. No worsening shortness of breath. Overnight, the patient had some altered mentation for that reason a CAT scan of the brain was obtained and it showed no evidence of any intracranial hemorrhage. Mother the patient has an ischemic right foot. The right calf and foot remains quite tender the patient is complaining of ongoing discomfort in his right foot. The patient is afebrile hemodynamically stable. No respiratory difficulties. The right foot is essent ially cold and cyanotic. The white cell count of 17.3 with hemoglobin 13.7, sodium is at 138 with a potassium level of 3.9, bicarbonate 20 with a glucose of 94. The patient will likely need a amputation at a later stage. Vascular surgery is still on the case. Echocardiogram showed a preserved LV function with an ejection fraction of 50-55%. Patient remains on IV heparin. IV heparin will be discontinued as of midnight in preparation for surgery for tomorrow. No other issues for now. 10/15/2021, the patient is being seen for a follow-up. The patient is doing well. No new complaints. The plan is to proceed with a right lower extremity amputation probably below the knee by vascular surgery and he is scheduled to undergo the procedure at around 1 PM. He is currently off IV heparin. Doing well. Hemodynamically stable. Still on 4 L of Oxymizer nasal cannula. No respiratory distress for now. No other complaints otherwise. No recent blood work otherwise from today. 10/16/2021, the patient is being seen for a follow-up. Remains on oxygen at 4 L per minute. Underwent a below-knee position of the right lower extremity. The patient's right lower extremity is also connected to wound VAC. His main complaint is pain and the patient is receiving Dilaudid 1 mg every 3 hours on a when necessary basis for postsurgical pain. The patient remains on lactated Ringer at 20 mL an hour. He remains on Decadron 6 mg by mouth daily. Altered mentation. No respiratory distress. He was provided incentive spirometer. Is currently off IV heparin. His taken aspirin. Blood work from today shows a white cell count was 16.7 with hemoglobin of 13.4. Renal function is stable. Creatinine is 0.7. Sodium is at 137. 10/17/2021, the patient is being seen for a follow-up. He is a patient underwent a and addition of the right lower extremity. Vascular surgery is on the case. The patient had a wound VAC at the level of the right lower extremity stump. The flap was without any cyanosis. This was inspected by the vascular surgeon. The patient is going to go back to the operating room on 10/18/2021 for possible closure versus above-knee amputation at that time. Currently is on IV heparin.. Is under good control the patient's pain is around 4 out of 10 in severity. No nausea. No vomiting. No chest pain. No worsening shortness of breath. Remains in oxygen 4 L per minute nasal cannula. The patient is also on Decadron 6 mg IV every 24 hours. Objective - Vital Signs Vital signs: Vital Signs Temp 96.9 F L 10/17/21 09:16 Pulse 92 10/17/21 09:16 Resp 20 10/17/21 09:16 BP 146/71 10/17/21 09:16 Pulse Ox 92 L 10/17/21 09:16 Intake & Output 10/16/21 10/17/21 10/17/21 18:59 06:59 18:59 Intake Total 417.024 169.133 538.317 Output Total 1275 325 Balance 417.024 -1105.867 213.317 Intake: Intake, IV Titration 267.024 169.133 138.317 Amount Heparin Sod,Pork in 0.45% 169.024 169.133 138.317 NaCl 25,000 unit In 0.45 % NaCl 1 250ml.bag @ 9. 728 UNITS/KG/HR 10 mls/hr IV .Q24H [facility] Rx#: [id number] IV Fluid Continuation 150 98 ml @ 0 mls/hr IV .[facility] Rx#:[id number] Oral 150 400 Output: Drainage 100 100 Right Knee 100 100 Urine 1175 225 Uretheral (Marino) 225 Other: Voiding Method Indwelling Catheter Indwelling Catheter Indwelling Catheter - Exam Physical Exam revealed a 66-year-old white male on 4 liters nasal cannula, in no distress. Head: Atraumatic, normocephalic. HEENT:[Neck is supple.] [No neck masses.] [No thyromegaly.] [No JVD.] Chest: [Symmetrical chest expansion, crackles at the bases. Cardiac Exam: [Normal S1 and S2, no S3 gallop, no murmur.] Abdomen: [Soft, nontender, no megaly, no rebound, no guarding, normal bowel sounds.] Extremities: Postsurgical changes involving the right lower extremity as the patient undergone amputation and the wound stump is connected to wound VAC for now. Neurological Exam: [No focal neurologic deficit.] Alert oriented 3 Psychiatric: Normal mood blunt affect, normal mental status examination. - Labs CBC & Chem 7: 10/17/21 08:14 10/17/21 08:14 Labs: Abnormal Lab Results - Last 24 Hours (Table) 10/17/21 10/17/21 10/17/21 Range/Units 08:14 08:14 08:14 WBC 19.5 H (3.8-10.6) k/uL APTT 69.2 H (22.0-30.0) sec D-Dimer 0.84 H (<0.60) mg/L FEU Glucose 105 H (74-99) mg/dL AST 282 H (17-59) U/L ALT 201 H (4-49) U/L Alkaline Phosphatase 170 H (38-126) U/L Albumin 3.0 L (3.5-5.0) g/dL Assessment and Plan Plan: 1 Acute right lower extremity ischemia secondary to arterial thrombosis, post failed vascular intervention and ultimately the patient required below-knee amputation. The patient is currently postop day #2. The patient underwent a right below-knee amputation along with replacement on the wound VAC. The pain is under adequate control for now. 2 Acute hypoxic respiratory failure secondary to COVID-19 pneumonia, respiratory status remains stable the patient remains on 4 L of oxygen nasal cannula, currently on Decadron 6 mg by mouth on a daily basis, overall respiratory status remains stable as the patient is being treated for cholinesterase pneumonia. The oxygenation is stable and the patient remains on 4 L 3 Hypercoagulable state and arterial thrombosis secondary to COVID-19 pneumonia/infection 4 Acute lactic acidosis secondary to limb ischemia 5 Acute kidney injury , recovered with hydration 6 altered mentation, CAT scan of the brain is negative. This is probably related to an episode of delirium occurring overnight. Recommendation: Treat post surgical pain with Dilaudid Overall pulmonary status is stable The patient is on 4 L of oxygen by nasal cannula Continue oral Decadron Continue COVID-19 cocktail. Monitor mental status The patient will be taken back to the operating room on 10/18/2021 for revision and possible closure versus above-knee amputation of the right lower extremity. Continued IV heparin and stop it prior to surgery Clinically stable for now. Provide incentive spirometer.
[2021-10-17] MEDS: HYDROcodone/APAP 5-325MG 1 EACH TAB PO PRN ×2 (16:26→22:30)
--- NOTE | 2021-10-17 18:31 | P.PN ---
Progress Note - Text Progress Note Date: 10/17/21 Chief Complaint: Right leg pain This is a 66-year-old patient who follows Dr. Stefano Miguel. He presented to ER earlier today with a right calf pain. Symptoms have been coming on for about 3 weeks. Patient is also had decreased appetite for some time. Complaint of fe eling dry in the ER. Some shortness of breath. He did also had discoloration to the right leg for several days. Having pain in the calf. No chest pain. ER physician had called me thinking this was an arterial compromise. Dr. Marino from vascular was consulted. The patient down to the operating room. Patient was discovered to have occlusion of the superficial femoral artery down to the integrity of the leg. Left common femoral artery was accessed. Angiogram was done. And thrombolysis was started. Patient's currently getting TPN heparin drip. In the ICU. Patient is received pain medications and is rather lethargic. Not really able to give much of a history currently. According to the nurse doesn't Doppler in the left leg. Dopplers also present in the right leg up to the knee not below the knee. Patient tested positive for COVID in the ER. Patient was given EKOS with heparin and TPA infusion. October 13: ICU: Patient had theEKOS removed this afternoon. Patient was taken to the OR by Dr. Marino. Repeat angiogram did not show any blood flow below the right knee. Patient's mottling though has improved of the right leg. Walking just above the ankle. Patient has some sensations lower extremity. This point decision is to resume the IV heparin. Patient may still level of getting amputation depending on clinical course. October 14: Patient is being moved to the medical floor. Last night patient had altered mental status. Stat computed tomography scan negative for bleed. Likely delirious. Neurology consulted. Neuro checks. Cardiology consulted for medical clearance. Patient on IV heparin. Tender right leg. Some decrease in mottling. October 15: Patient is pending surgery this morning. Some pain in the right lower extremity. Had been on IV heparin. Breathing stable. Patient related today underwent right below-knee amputation for Dr. Marino. And a wound VAC was placed. October 16: Decreased appetite. Some pain present. On nasal cannula. Ordered incentive spirometry. October 17: Eating well. Close to 100%. Breathing On 4 L nasal cannula. Plan for patient to return to the OR tomorrow. Right leg wound VAC. Closure of wound versus above-knee amputation. Delirium better. Lopressor being added for blood pressure. IV heparin continuous Review of systems: Was done for constitutional, cardiovascular, GI, pulmonary. relevant finding as above Active Medications Hydrocodone Bitart/Acetaminophen (Hydrocodone/Apap 5-325mg 1 Each Tab) 1 each PO Q4HR PRN PRN Reason: Moderate Pain Last Admin: 10/17/21 16:26 Dose: 1 each Documented by: Ascorbic Acid (Ascorbic Acid 500 Mg Tab) 500 mg PO BID [facility] Last Admin: 10/17/21 08:52 Dose: 500 mg Documented by: Aspirin (Aspirin 81 Mg) 81 mg PO BID [facility] Last Admin: 10/17/21 08:52 Dose: 81 mg Documented by: Atorvastatin Calcium (Atorvastatin 40 Mg Tab) 40 mg PO HS [facility] Last Admin: 10/16/21 19:30 Dose: 40 mg Documented by: Cholecalciferol (Cholecalciferol 25 Mcg (1000 Iu) Tablet) 25 mcg PO DAILY [facility] Last Admin: 10/17/21 08:52 Dose: 25 mcg Documented by: Dexamethasone (Dexamethasone 2 Mg Tab) 6 mg PO DAILY [facility] Last Admin: 10/17/21 08:52 Dose: 6 mg Documented by: Folic Acid (Folic Acid 1 Mg Tab) 1 mg PO DAILY [facility] Last Admin: 10/17/21 08:52 Dose: 1 mg Documented by: Heparin Sodium (Porcine) (Heparin Sodium 1,000 Un/Ml (10ml Vl)) 0 unit IV PER PROTOCOL PRN; Protocol PRN Reason: Low PTT Hydromorphone HCl (Hydromorphone 1 Mg/Ml 1 Ml Syringe) 1 mg IVP Q3HR PRN PRN Reason: Severe Pain Last Admin: 10/17/21 00:02 Dose: 1 mg Documented by: Hydromorphone HCl (Hydromorphone 0.5 Mg/0.5 Ml Syringe) 0.5 mg IVP Q3HR PRN PRN Reason: Moderate Pain Last Admin: 10/17/21 09:22 Dose: 0.5 mg Documented by: Sodium Chloride (Saline 0.9%) 1,000 mls @ 100 mls/hr IV .Q10H [facility] Last Admin: 10/17/21 14:23 Dose: 100 mls/hr Documented by: Heparin Sodium/Sodium Chloride (25,000 unit/ Sodium Chloride) 250 mls @ 10 mls/hr IV .Q24H [facility]; Protocol Last Titration: 10/17/21 17:46 Dose: 11.73 units/kg/hr, 12.058 mls/hr Documented by: Lactated Ringer's (Lactated Ringers) 1,000 mls @ 20 mls/hr IV .Q24H [facility] Last Admin: 10/17/21 02:29 Dose: Not Given Documented by: Lactated Ringer's (Lactated Ringers) 1,000 mls @ 20 mls/hr IV .Q24H [facility] Last Admin: 10/17/21 02:29 Dose: Not Given Documented by: Naloxone HCl (Naloxone 0.4 Mg/Ml 1 Ml Vial) 0.2 mg IV Q2M PRN PRN Reason: Opioid Reversal Ondansetron HCl (Ondansetron 4 Mg/2 Ml Vial) 4 mg IVP Q4HR PRN PRN Reason: Nausea And Vomiting Pantoprazole Sodium (Pantoprazole 40 Mg/10 Ml Vial) 40 mg IV DAILY [facility] Last Admin: 10/17/21 08:52 Dose: 40 mg Documented by: Zinc Sulfate (Zinc Sulfate 220 Mg Cap) 220 mg PO DAILY [facility] Last Admin: 10/17/21 08:52 Dose: 220 mg Documented by: Past medical history to include: Prostate disorder Social history: Patient started smoking as a teen and stopped in 1995. No alcohol. Lives alone. 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 Family history: Reviewed, noncontributory to presentation Physical examination: VITAL SIGNS: 97.8, 67, 18, 161/71, 92% on 4 L GENERAL: Laying in bed, awake, tired LUNGS: Respiratory rate increased. PSYCH: AO 3, mood affect normal. EXTREMITY: Right below-knee amputation Rest of the exam as per nursing INVESTIGATIONS, reviewed in the clinical context: October 17: WBC 19.5 hemoglobin 15 potassium 4.3 creatinine 0.75 AST 282 ALT 201 October 16: WBC 16.5 hemoglobin 13.4 potassium 4.1 creatinine 0.71 October 14: White count 7.3 hemoglobin 13.7 potassium 3.9 creatinine 0.82 AST 311 ALT 99 Computed tomography scan: Negative October 13: White count 9.8 hemoglobin 15.4 platelets 298 potassium 4.5 BUN 25 creatinine 1.04 AST 254 and ALT 113 Ultrasound: Limited exam. No obvious abnormality. Acute hepatitis panel: Negative White count 19.2 hemoglobin 18.9 platelets 511 2142 BUN 31 creatinine 1.40, repeat 1.19 Lactic acid 3.6 AST 407 ALT 108 Pro-calcitonin 0.14 Coronavirus [PCR]: Detected EKG tracing personally reviewed by me-normal sinus rhythm. Right bundle branch block. ST-T wave changes. PVCs. Assessment and plan: -This is a patient who presents with pain in the right calf which is going on for a few days progressively getting worse. Appears to have had acute on chronic arterial occlusion. Especially of the superficial femoral artery. Patient has aEKOS placed through the left groin. Receive TPN heparin. On October 13 repeat angiogram showed or circulation below the knee. IV heparin resumed. October 15 right below-knee amputation by Dr. Marino. Wound VAC. Pending to go back to the OR tomorrow. Closure of flap versus right above-knee amputation. -Acute on chronic PAD, as patient's symptoms came on since around September 26. aspirin, Lipitor. -Acute delirium.: Improved Computed tomography scan been negative. Neurology consulted. EEG -IV heparin monitoring. Follow PTT -Right bundle branch block pattern -Metabolic acidosis: Better Sodium bicarbonate by mouth -Acute kidney injury, possibly ATN, : Improved Received IV fluids. -Hepatitis, chronicity unknown Acute hepatitis panel: Negative. Repeat labs. On Lipitor. Follow closely. -Acute hypoxic respiratory failure from COVID 19 Pulse ox was 89% on room air on presentation. dexamethasone. -Acute COVID 19 pneumonitis Vitamin C vitamin D. Zinc. Dexamethasone. Wound VAC. IV heparin. Patient to return to the operating room tomorrow.
[2021-10-17] MEDS: ATORVASTATIN 40 MG TAB PO SCH (20:07)
[2021-10-17] MEDS: METOPROLOL TARTRATE 25 MG TAB PO SCH (20:07)
[2021-10-18] MEDS: SODIUM CHLORIDE 0.9% 1,000 ML IV SCH ×2 (06:07→16:56)
[2021-10-18] MEDS: LACTATED RINGERS 1,000 ML IV SCH ×2 (06:08)
--- NOTE | 2021-10-18 09:40 | P.PN ---
Subjective Progress Note Date: 10/18/21 Patient is seen and examined in the bed. He does complain of some pain at the amputation site. Nursing did know that he had a hematoma and bruising in the left groin at the access site. Apparently according to his nurse the night nurse had put a thumb stopped on that area. His hemoglobin has been stable at 15.0. He has no active bleeding from the site. Objective - Vital Signs Vital signs: Vital Signs Temp 97.8 F 10/18/21 08:28 Pulse 80 10/18/21 08:28 Resp 18 10/18/21 08:28 BP 133/56 10/18/21 08:28 Pulse Ox 97 10/18/21 08:28 Intake & Output 10/17/21 10/18/21 10/18/21 18:59 06:59 18:59 Intake Total 1653.977 16.023 236 Output Total 1225 1800 Balance 428.977 16.023 -1564 Intake: Intake, IV Titration 953.977 16.023 Amount Heparin Sod,Pork in 0.45% 233.977 16.023 NaCl 25,000 unit In 0.45 % NaCl 1 250ml.bag @ 9. 728 UNITS/KG/HR 10 mls/hr IV .Q24H [facility] Rx#: [id number] Sodium Chloride 0.9% 1, 720 000 ml @ 100 mls/hr IV . Q10H [facility] Rx#:[id number] Oral 700 236 Output: Drainage 100 Right Knee 100 Urine 1125 1800 Uretheral (Marino) 225 900 Other: Voiding Method Indwelling Catheter Indwelling Catheter # Bowel Movements 0 - Exam General appearance: The patient is alert, oriented, in no acute distress. HET: Head is normocephalic and atraumatic. Neck: Supple without lymphadenopathy. Trachea midline. Heart: S1 S2. Regular rate and rhythm. Lungs: No crackles or wheezes are heard. Abdomen: Soft, nontender, nondistended. Extremities: Normal skin color and turgor. Lower extremity amputation with dressing clean dry and intact. Left groin with ecchymosis and small palpable hematoma, and no tenderness to palpation. Neurological: Alert. No focal deficits. - Labs CBC & Chem 7: 10/17/21 08:14 10/17/21 08:14 Labs: Abnormal Lab Results - Last 24 Hours (Table) 10/17/21 10/17/21 10/17/21 Range/Units 08:14 08:14 08:14 WBC 19.5 H (3.8-10.6) k/uL APTT 69.2 H (22.0-30.0) sec D-Dimer 0.84 H (<0.60) mg/L FEU Glucose 105 H (74-99) mg/dL AST 282 H (17-59) U/L ALT 201 H (4-49) U/L Alkaline Phosphatase 170 H (38-126) U/L Albumin 3.0 L (3.5-5.0) g/dL 10/17/21 Range/Units 16:57 WBC (3.8-10.6) k/uL APTT 49.5 H (22.0-30.0) sec D-Dimer (<0.60) mg/L FEU Glucose (74-99) mg/dL AST (17-59) U/L ALT (4-49) U/L Alkaline Phosphatase (38-126) U/L Albumin (3.5-5.0) g/dL Assessment and Plan Assessment: 1. Right lower extremity below the knee amputation 2. Right lower extremity ischemia 3. Covid Plan: 1. Nothing by mouth 2. Hold heparin for surgery 3. Plan is to go to the OR today for possible closure versus [id number] amputation The impression and plan of care has been dictated as directed. Dr. Marino I performed a history and examination of this patient, discussed the same with the dictator. I agree with the dictator's note ,documented as a scribe. Any additional findings or plans will be noted.
[2021-10-18] MEDS: CHOLECALCIFEROL 25 MCG (1000 IU) TABLET PO SCH (10:10)
[2021-10-18] MEDS: dexAMETHasone 2 MG TAB PO SCH (10:10)
[2021-10-18] MEDS: ASCORBIC ACID 500 MG TAB PO SCH ×2 (10:10→20:32)
[2021-10-18] MEDS: FOLIC ACID 1 MG TAB PO SCH (10:10)
[2021-10-18] MEDS: PANTOPRAZOLE 40 MG/10 ML VIAL IV SCH (10:11)
[2021-10-18] MEDS: ZINC SULFATE 220 MG CAP PO SCH (10:11)
[2021-10-18] MEDS: METOPROLOL TARTRATE 25 MG TAB PO SCH ×2 (10:11→20:32)
[2021-10-18] MEDS: HYDROcodone/APAP 5-325MG 1 EACH TAB PO PRN (10:11)
[2021-10-18 10:35] LABS: ALT 180 U/L (4-49); AST 293 U/L (17-59); African American GFR (CKD) >90 (>60 ml/min/1.73 sqM); Albumin 2.7 g/dL (3.5-5.0); Alkaline Phosphatase 142 U/L (38-126); Anion Gap 11 mmol/L; Blood Urea Nitrogen 14 mg/dL (9-20); Calcium 8.5 mg/dL (8.4-10.2); Carbon Dioxide 23 mmol/L (22-30); Chloride 104 mmol/L (98-107); Glucose 151 mg/dL (74-99); Non-African American GFR(CKD) >90 (>60 ml/min/1.73 sqM); Potassium 3.9 mmol/L (3.5-5.1); Sodium 138 mmol/L (137-145); Total Bilirubin 0.9 mg/dL (0.2-1.3); Total Protein 5.7 g/dL (6.3-8.2)
[2021-10-18] MEDS ORDERED: SODIUM CHLORIDE 0.9% 1,000 ML IV ONE (13:20)
[2021-10-18] MEDS ORDERED: HYDROmorphone (PF) 1 MG/ML ONE (13:20)
[2021-10-18] MEDS ORDERED: SUCCINYLCHOLINE CHLORIDE 100 MG/5 ML SYR IV ONE (13:20)
[2021-10-18] MEDS ORDERED: fentaNYL (PF) 50 MCG/ML 2 ML AMP ONE (13:20)
[2021-10-18] MEDS ORDERED: PROPOFOL 10 MG/ML 20 ML VIAL IV ONE (13:20)
[2021-10-18] MEDS ORDERED: PHENYLEPHRINE-0.9% NACL SYG 1,000 MCG/10 ML SYRINGE ONE (13:20)
[2021-10-18] MEDS ORDERED: LIDOCAINE 1% INJ 10MG/ML (20 ML MDV) ONE (13:20)
[2021-10-18] MEDS ORDERED: ROCURONIUM 10 MG/ML (5 ML VIAL) IV ONE (13:20)
[2021-10-18] MEDS ORDERED: ceFAZolin 1,000 MG VIAL ONE (13:20)
[2021-10-18] MEDS ORDERED: SODIUM CHLORIDE 0.9% 100 ML BAG ONE (13:20)
[2021-10-18 14:08] VITALS: BMI 31.6
--- NOTE | 2021-10-18 15:02 | P.OP ---
Date of Procedure: 10/18/21 Description of Procedure: Preoperative diagnosis: [Right] lower extremity ischemia, previous below knee amputation Postoperative diagnosis: Same Procedure: [Right] Above-knee amputation Surgeon: April Marino D.O. Anesthesia: [General endotracheal] EBL: [25 mL see records] IV fluids: [See records] Urine output: [See records] Drains: [None] Complications: [None immediately apparent] Condition: [Stable to recovery] Operative indication and findings: [Patient is a 66-year-old male who came in initially with acute limb ischemia on chronic after about 3-4 weeks of pain and worsening. Initial attempts were made at revascularization which were unsuccessful. Initially underwent a below-knee amputation with the flap left open to see if there was appropriate viability. Risks and benefits of going forward with the procedure were discussed with the family and the patient seemingly understood and are willing to proceed.] Procedure in detail: The patient was taken to the operative suite and placed in supine position. After adequate anesthesia, the [right] lower extremity was prepped and draped in usual sterile fashion. A preprocedure timeout was performed, all parties were in agreement. The flap was investigated. It appeared significantly cooler to the touch than the more proximal tissues. Using a scalpel the distal skin was incised and there was no evident bleeding therefore the decision was made to go forward with the above-knee amputation. Skin marker was utilized and the incision was marked proximal to the knee joint. Skin incision was performed and deepened through the subcutaneous tissues to the muscular fascia. The saphenous vein was identified and ligated with 2-0 silk and divided. The muscle groups of the anterior and medial thigh were divided with electrocautery at the same level of the skin incision. The neurovascular bundle was identified on the medial aspect of the thigh. The artery and veins were isolated and suture ligated using 2-0 silk ligature. The sciatic nerve was pulled on stretch and ligated with 2-0 silk tie and divided. The femur was t hen cleared of its periosteal tissue is elevated and was divided with the oscillating saw. The posterior thigh muscles were then divided with electrocautery. The proximal end of the transected femur was smoothed with a rasp. The amputation site was then copiously irrigated. Hemostasis was controlled with electrocautery. The periosteum was reapproximated using interrupted sutures of 2-0 Vicryl. The fascia was reapproximated with interrupted [id number] sutures of 2-0 Vicryl. The skin was reapproximated with elizabeth. A dressing with gauze, Kerlix and a bandage were placed. The patient tolerated the procedure well and was transported to PACU in stable condition
[2021-10-18] MEDS: ASPIRIN 81 MG PO SCH ×2 (15:34→20:32)
[2021-10-18] MEDS: HYDROmorphone 0.5 MG/0.5 ML SYRINGE IVP PRN (17:02)
--- NOTE | 2021-10-18 17:13 | P.PN ---
Subjective Progress Note Date: 10/18/21 Principal diagnosis: Coronavirus pneumonia. 10/16/2021, the patient is being seen for a follow-up. Remains on oxygen at 4 L per minute. Underwent a below-knee position of the right lower extremity. The patient's right lower extremity is also connected to wound VAC. His main complaint is pain and the patient is receiving Dilaudid 1 mg every 3 hours on a when necessary basis for postsurgical pain. The patient remains on lactated Ringer at 20 mL an hour. He remains on Decadron 6 mg by mouth daily. Altered mentation. No respiratory distress. He was provided incentive spirometer. Is currently off IV heparin. His taken aspirin. Blood work from today shows a white cell count was 16.7 with hemoglobin of 13.4. Renal function is stable. Creatinine is 0.7. Sodium is at 137. 10/17/2021, the patient is being seen for a follow-up. He is a patient underwent a and addition of the right lower extremity. Vascular surgery is on the case. The patient had a wound VAC at the level of the right lower extremity stump. The flap was without any cyanosis. This was inspected by the vascular surgeon. The patient is going to go back to the operating room on 10/18/2021 for possible closure versus above-knee amputation at that time. Currently is on IV heparin.. Is under good control the patient's pain is around 4 out of 10 in severity. No nausea. No vomiting. No chest pain. No worsening shortness of breath. Remains in oxygen 4 L per minute nasal cannula. The patient is also on Decadron 6 mg IV every 24 hours. Progress note dated 10/18/2021. This is a 66-year-old male is again seen in room 354. The patient was going back to the operating room for either a amputation above the knee, of the right lower extremity, or closure of the flap on the right below the knee amputation. Dr. Marino was going to make that decision in the operating room. Currently, the patient's doing well otherwise. The patient's on saline at 100 mL an hour, and is on O2 at 3 L by nasal cannula. The patient did test positive for coronavirus. The patient remains on Decadron 6 mg daily. Lab data today includes a sodium 138, potassium 3.9, chlorides 104, CO2 23, anion gap 11, B1 14, creatinine 0.74. The patient's glucose is 151 AST to 93 ALT 180, and albumin 2.7. Objective - Vital Signs Vital signs: Vital Signs Temp 97.1 F L 10/18/21 11:49 Pulse 92 10/18/21 16:34 Resp 16 10/18/21 16:34 BP 135/65 10/18/21 16:34 Pulse Ox 96 10/18/21 16:34 Intake & Output 10/17/21 10/18/21 10/18/21 18:59 06:59 18:59 Intake Total 1653.977 16.023 1036 Output Total 1225 3225 Balance 428.977 16.023 -2189 Weight 102.8 kg Intake: IV 800 Intake, IV Titration 953.977 16.023 Amount Heparin Sod,Pork in 0.45% 233.977 16.023 NaCl 25,000 unit In 0.45 % NaCl 1 250ml.bag @ 9. 728 UNITS/KG/HR 10 mls/hr IV .Q24H [facility] Rx#: [id number] Sodium Chloride 0.9% 1, 720 000 ml @ 100 mls/hr IV . Q10H [facility] Rx#:[id number] Oral 700 236 Output: Drainage 100 Right Knee 100 Urine 1125 3200 Uretheral (Marino) 225 900 Estimated Blood Loss 25 Other: Voiding Method Indwelling Catheter Indwelling Catheter Indwelling Catheter # Bowel Movements 0 - Exam No acute distress, oriented 3. Nasal O2 at 3 L/m. HEENT examination is grossly unremarkable. Neck supple. Full range of motion. No adenopathy thyromegaly or neck vein distention. Cardiovascular examination reveals regular rhythm rate. S1-S2 normal. No S3 or S4. No discernible murmur noted. Heart rate 81 bpm. Lungs reveal mostly clear breath sounds. A few crackles at the bases. Breath sounds equal bilaterally. Abdomen soft bowel sounds are heard. No masses or tenderness. Extremities reveal a right BKA. Wound VAC noted. Skin is without rash or lesion. Neurologic examination is brief but nonfocal. - Labs CBC & Chem 7: 10/17/21 08:14 10/18/21 08:41 Labs: Abnormal Lab Results - Last 24 Hours (Table) 10/17/21 10/18/21 Range/Units 16:57 08:41 APTT 49.5 H (22.0-30.0) sec Glucose 151 H (74-99) mg/dL AST 293 H (17-59) U/L ALT 180 H (4-49) U/L Alkaline Phosphatase 142 H (38-126) U/L Total Protein 5.7 L (6.3-8.2) g/dL Albumin 2.7 L (3.5-5.0) g/dL Assessment and Plan Assessment: Acute right lower extremity ischemia secondary to arterial thrombosis, status post right below the knee amputation. Today's postop day #3. The patient may end up having a right rrhlm-jlp-yxyi amputation, to be decided by vascular surgery. Acute hypoxemic respiratory failure secondary to coronavirus associated pneumonia. Hypercoagulable state and arterial thrombosis, secondary to coronavirus infection. Acute lactic acidosis secondary to limb ischemia. Acute kidney injury. Mental status changes, improved. Plan: Plan dated 10/18/2021. The patient will go back to the operating room today for either a revision of the right below the knee amputation, or a right iswld-lep-exbe amputation. This to be decided by vascular surgery in the operating room. The patient remains on appropriate medications. The patient's on 3 L nasal cannula. The patient's getting saline at 100 mL an hour. Medications, labs, and x-rays are all reviewed. Prognosis is guarded. We will continue to follow and make recommend ations where appropriate. Time with Patient: Less than 30
--- NOTE | 2021-10-18 17:14 | P.PN ---
Progress Note - Text Progress Note Date: 10/18/21 Chief Complaint: Right leg pain This is a 66-year-old patient who follows Dr. Stefano Miguel. He presented to ER earlier today with a right calf pain. Symptoms have been coming on for about 3 weeks. Patient is also had decreased appetite for some time. Complaint of fe eling dry in the ER. Some shortness of breath. He did also had discoloration to the right leg for several days. Having pain in the calf. No chest pain. ER physician had called me thinking this was an arterial compromise. Dr. Marino from vascular was consulted. The patient down to the operating room. Patient was discovered to have occlusion of the superficial femoral artery down to the integrity of the leg. Left common femoral artery was accessed. Angiogram was done. And thrombolysis was started. Patient's currently getting TPN heparin drip. In the ICU. Patient is received pain medications and is rather lethargic. Not really able to give much of a history currently. According to the nurse doesn't Doppler in the left leg. Dopplers also present in the right leg up to the knee not below the knee. Patient tested positive for COVID in the ER. Patient was given EKOS with heparin and TPA infusion. October 13: ICU: Patient had theEKOS removed this afternoon. Patient was taken to the OR by Dr. Marino. Repeat angiogram did not show any blood flow below the right knee. Patient's mottling though has improved of the right leg. Walking just above the ankle. Patient has some sensations lower extremity. This point decision is to resume the IV heparin. Patient may still level of getting amputation depending on clinical course. October 14: Patient is being moved to the medical floor. Last night patient had altered mental status. Stat computed tomography scan negative for bleed. Likely delirious. Neurology consulted. Neuro checks. Cardiology consulted for medical clearance. Patient on IV heparin. Tender right leg. Some decrease in mottling. October 15: Patient is pending surgery this morning. Some pain in the right lower extremity. Had been on IV heparin. Breathing stable. Patient related today underwent right below-knee amputation for Dr. Marino. And a wound VAC was placed. October 16: Decreased appetite. Some pain present. On nasal cannula. Ordered incentive spirometry. October 17: Eating well. Close to 100%. Breathing On 4 L nasal cannula. Plan for patient to return to the OR tomorrow. Right leg wound VAC. Closure of wound versus above-knee amputation. Delirium better. Lopressor being added for blood pressure. IV heparin continuous October 18: Patient is delirium resolved yesterday. Saw the patient this morning. Going down to the operating room later today. On 3 L of nasal cannula. Pain control. Later today underwent right knee amputation. Review of systems: Was done for constitutional, cardiovascular, GI, pulmonary. r elevant finding as above Active Medications Hydrocodone Bitart/Acetaminophen (Hydrocodone/Apap 5-325mg 1 Each Tab) 1 each PO Q4HR PRN PRN Reason: Moderate Pain Last Admin: 10/18/21 10:11 Dose: 1 each Documented by: Ascorbic Acid (Ascorbic Acid 500 Mg Tab) 500 mg PO BID [facility] Last Admin: 10/18/21 10:10 Dose: 500 mg Documented by: Aspirin (Aspirin 81 Mg) 81 mg PO BID [facility] Last Admin: 10/18/21 15:34 Dose: Not Given Documented by: Atorvastatin Calcium (Atorvastatin 40 Mg Tab) 40 mg PO HS [facility] Last Admin: 10/17/21 20:07 Dose: 40 mg Documented by: Cholecalciferol (Cholecalciferol 25 Mcg (1000 Iu) Tablet) 25 mcg PO DAILY [facility] Last Admin: 10/18/21 10:10 Dose: 25 mcg Documented by: Dexamethasone (Dexamethasone 2 Mg Tab) 6 mg PO DAILY [facility] Last Admin: 10/18/21 10:10 Dose: 6 mg Documented by: Folic Acid (Folic Acid 1 Mg Tab) 1 mg PO DAILY [facility] Last Admin: 10/18/21 10:10 Dose: 1 mg Documented by: Heparin Sodium (Porcine) (Heparin Sodium 1,000 Un/Ml (10ml Vl)) 0 unit IV PER PROTOCOL PRN; Protocol PRN Reason: Low PTT Hydromorphone HCl (Hydromorphone 1 Mg/Ml 1 Ml Syringe) 1 mg IVP Q3HR PRN PRN Reason: Severe Pain Last Admin: 10/17/21 20:07 Dose: 1 mg Documented by: Hydromorphone HCl (Hydromorphone 0.5 Mg/0.5 Ml Syringe) 0.5 mg IVP Q3HR PRN PRN Reason: Moderate Pain Last Admin: 10/18/21 17:02 Dose: 0.5 mg Documented by: Sodium Chloride (Saline 0.9%) 1,000 mls @ 100 mls/hr IV .Q10H [facility] Last Admin: 10/18/21 16:56 Dose: 100 mls/hr Documented by: Heparin Sodium/Sodium Chloride (25,000 unit/ Sodium Chloride) 250 mls @ 10 mls/hr IV .Q24H [facility]; Protocol Last Titration: 10/18/21 00:05 Dose: Infused Documented by: Lactated Ringer's (Lactated Ringers) 1,000 mls @ 20 mls/hr IV .Q24H [facility] Last Admin: 10/18/21 06:08 Dose: Not Given Documented by: Lactated Ringer's (Lactated Ringers) 1,000 mls @ 20 mls/hr IV .Q24H [facility] Last Admin: 10/18/21 06:08 Dose: Not Given Documented by: Metoprolol Tartrate (Metoprolol Tartrate 25 Mg Tab) 25 mg PO BID [facility] Last Admin: 10/18/21 10:11 Dose: 25 mg Documented by: Naloxone HCl (Naloxone 0.4 Mg/Ml 1 Ml Vial) 0.2 mg IV Q2M PRN PRN Reason: Opioid Reversal Ondansetron HCl (Ondansetron 4 Mg/2 Ml Vial) 4 mg IVP Q4HR PRN PRN Reason: Nausea And Vomiting Pantoprazole Sodium (Pantoprazole 40 Mg/10 Ml Vial) 40 mg IV DAILY [facility] Last Admin: 10/18/21 10:11 Dose: 40 mg Documented by: Zinc Sulfate (Zinc Sulfate 220 Mg Cap) 220 mg PO DAILY [facility] Last Admin: 10/18/21 10:11 Dose: 220 mg Documented by: Past medical history to include: Prostate disorder Social history: Patient started smoking as a teen and stopped in 1995. No alcohol. Lives alone. 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 Family history: Reviewed, noncontributory to presentation Physical examination: VITAL SIGNS: 97.1, 67, 18, 118/60, 96% on 3 L GENERAL: Laying in bed, awake, more comfortable LUNGS: Respiratory rate normal. PSYCH: AO 3, mood affect normal. EXTREMITY: Right below-knee amputation Rest of the exam as per nursing INVESTIGATIONS, reviewed in the clinical context: October 18: Potassium 3.9 creatinine 0.74 AST 293 ALT 180 October 17: WBC 19.5 hemoglobin 15 potassium 4.3 creatinine 0.75 AST 282 ALT 201 October 16: WBC 16.5 hemoglobin 13.4 potassium 4.1 creatinine 0.71 October 14: White count 7.3 hemoglobin 13.7 potassium 3.9 creatinine 0.82 AST 311 ALT 99 Computed tomography scan: Negative October 13: White count 9.8 hemoglobin 15.4 platelets 298 potassium 4.5 BUN 25 creatinine 1.04 AST 254 and ALT 113 Ultrasound: Limited exam. No obvious abnormality. Acute hepatitis panel: Negative White count 19.2 hemoglobin 18.9 platelets 511 2142 BUN 31 creatinine 1.40, repeat 1.19 Lactic acid 3.6 AST 407 ALT 108 Pro-calcitonin 0.14 Coronavirus [PCR]: Detected EKG tracing personally reviewed by me-normal sinus rhythm. Right bundle branch block. ST-T wave changes. PVCs. Assessment and plan: -This is a patient who presents with pain in the right calf which is going on for a few days progressively getting worse. Appears to have had acute on chronic arterial occlusion. Especially of the superficial femoral artery. Patient has aEKOS placed through the left groin. Receive TPN heparin. On October 13 repeat angiogram showed or circulation below the knee. IV heparin resumed. October 15 right below-knee amputation by Dr. Marino. Wound VAC. October 18: Patient underwent right above-knee amputation. -Acute on chronic PAD, as patient's symptoms came on since around September 26. aspirin, Lipitor. -Acute delirium.: Improved Computed tomography scan been negative. Seen by neurology -IV heparin monitoring. Follow PTT -Right bundle branch block pattern -Metabolic acidosis: Better Sodium bicarbonate by mouth -Acute kidney injury, possibly ATN, : Improved Received IV fluids. -Hepatitis, chronicity unknown Acute hepatitis panel: Negative. Repeat labs. On Lipitor. Hold Lipitor for now. We will resume and LFTs better -Acute hypoxic respiratory failure from COVID 19 Pulse ox was 89% on room air on presentation. dexamethasone. -Acute COVID 19 pneumonitis Vitamin C vitamin D. Zinc. Dexamethasone. Right above-knee amputation today. IV heparin. Hold Lipitor. Follow LFTs.
[2021-10-18] MEDS: HEPARIN SOD,PORK IN 0.45% NACL 25,000 UNIT in 0.45% NACL 1 250ML.BAG IV SCH (20:26)
[2021-10-19] MEDS: LACTATED RINGERS 1,000 ML IV SCH (04:29)
[2021-10-19] MEDS: HYDROcodone/APAP 5-325MG 1 EACH TAB PO PRN ×3 (04:30→19:50)
[2021-10-19] MEDS: ZINC SULFATE 220 MG CAP PO SCH (09:29)
[2021-10-19] MEDS: CHOLECALCIFEROL 25 MCG (1000 IU) TABLET PO SCH (09:29)
[2021-10-19] MEDS: dexAMETHasone 2 MG TAB PO SCH (09:29)
[2021-10-19] MEDS: FOLIC ACID 1 MG TAB PO SCH (09:29)
[2021-10-19] MEDS: METOPROLOL TARTRATE 25 MG TAB PO SCH ×2 (09:30→21:31)
[2021-10-19] MEDS: ASCORBIC ACID 500 MG TAB PO SCH ×2 (09:30→21:31)
[2021-10-19] MEDS: ASPIRIN 81 MG PO SCH ×2 (09:30→21:31)
[2021-10-19] MEDS: PANTOPRAZOLE 40 MG/10 ML VIAL IV SCH (09:30)
--- NOTE | 2021-10-19 10:15 | P.PN ---
Subjective Progress Note Date: 10/19/21 Should seen and examined sitting up in bed. He has postop day #1 for right iddqz-znm-loyz amputation. Dressing is clean dry and intact. His pain is well controlled. He had a bowel movement this morning. He's been afebrile. Objective - Vital Signs Vital signs: Vital Signs Temp 98.2 F 10/19/21 04:00 Pulse 66 10/19/21 04:00 Resp 18 10/19/21 04:00 BP 128/69 10/19/21 04:00 Pulse Ox 96 10/19/21 04:00 Intake & Output 10/18/21 10/19/21 10/19/21 18:59 06:59 18:59 Intake Total 1036 240 Output Total 3375 700 Balance -2339 -700 240 Weight 102.8 kg Intake: IV 800 Oral 236 240 Output: Urine 3350 700 Uretheral (Marino) 1050 Estimated Blood Loss 25 Other: Voiding Method Indwelling Catheter Indwelling Catheter - Exam General appearance: The patient is alert, oriented, in no acute distress. HET: Head is normocephalic and atraumatic. Neck: Supple without lymphadenopathy. Trachea midline. Heart: S1 S2. Regular rate and rhythm. Lungs: No crackles or wheezes are heard. Abdomen: Soft, nontender, nondistended. Extremities: Right lower extremity xuxcx-lcu-gmnf amputation stump with dressing clean dry and intact. Left groin with ecchymosis and small palpable hematoma, and no tenderness to palpation. Left palpable dorsalis pedal pulse. Neurological: Alert. No focal deficits. - Labs CBC & Chem 7: 10/17/21 08:14 10/18/21 08:41 Labs: Abnormal Lab Results - Last 24 Hours (Table) 10/18/21 Range/Units 08:41 Glucose 151 H (74-99) mg/dL AST 293 H (17-59) U/L ALT 180 H (4-49) U/L Alkaline Phosphatase 142 H (38-126) U/L Total Protein 5.7 L (6.3-8.2) g/dL Albumin 2.7 L (3.5-5.0) g/dL Assessment and Plan Assessment: 1. Postop day #1 Right lower extremity tazih-byt-rnkj amputation 2. Right lower extremity ischemia 3. Covid Plan: 1. Diet as tolerated 2. Physical therapy and occupational therapy ordered, continue with evaluation and treatment 3. No dressing change for 24 hours 4. Stump jewel bearing grinder and rigid dressing ordered, [facility] [employer] contacted per case managment 5. Continue incentive spirometer use 6. Continue medical management per primary medicine team The impression and plan of care has been dictated as directed. Dr. Pérez I performed a history and examination of this patient, discussed the same with the dictator. I agree with the dictator's note ,documented as a scribe. Any additional findings or plans will be noted.
--- NOTE | 2021-10-19 14:21 | P.PN ---
Subjective Progress Note Date: 10/19/21 Principal diagnosis: Coronavirus pneumonia. 10/16/2021, the patient is being seen for a follow-up. Remains on oxygen at 4 L per minute. Underwent a below-knee position of the right lower extremity. The patient's right lower extremity is also connected to wound VAC. His main complaint is pain and the patient is receiving Dilaudid 1 mg every 3 hours on a when necessary basis for postsurgical pain. The patient remains on lactated Ringer at 20 mL an hour. He remains on Decadron 6 mg by mouth daily. Altered mentation. No respiratory distress. He was provided incentive spirometer. Is currently off IV heparin. His taken aspirin. Blood work from today shows a white cell count was 16.7 with hemoglobin of 13.4. Renal function is stable. Creatinine is 0.7. Sodium is at 137. 10/17/2021, the patient is being seen for a follow-up. He is a patient underwent a and addition of the right lower extremity. Vascular surgery is on the case. The patient had a wound VAC at the level of the right lower extremity stump. The flap was without any cyanosis. This was inspected by the vascular surgeon. The patient is going to go back to the operating room on 10/18/2021 for possible closure versus above-knee amputation at that time. Currently is on IV heparin.. Is under good control the patient's pain is around 4 out of 10 in severity. No nausea. No vomiting. No chest pain. No worsening shortness of breath. Remains in oxygen 4 L per minute nasal cannula. The patient is also on Decadron 6 mg IV every 24 hours. Progress note dated 10/18/2021. This is a 66-year-old male is again seen in room 354. The patient was going back to the operating room for either a amputation above the knee, of the right lower extremity, or closure of the flap on the right below the knee amputation. Dr. Marino was going to make that decision in the operating room. Currently, the patient's doing well otherwise. The patient's on saline at 100 mL an hour, and is on O2 at 3 L by nasal cannula. The patient did test positive for coronavirus. The patient remains on Decadron 6 mg daily. Lab data today includes a sodium 138, potassium 3.9, chlorides 104, CO2 23, anion gap 11, B1 14, creatinine 0.74. The patient's glucose is 151 AST to 93 ALT 180, and albumin 2.7. Progress note dated 10/19/2021. 66-year-old male, again seen in room 354. Currently, the patient is on 4 L nasal cannula. Receiving saline at 75 mL an hour. The patient appears to be doing relatively well. He had a right abosy-xew-sbcp amputation done yesterday by Dr. Marino. Today's postop day #1. No new labs today. No new x-rays today. The patient appears to be relatively stable. He denies any shortness of breath, cough, wheezing, or phlegm production. The patient remains on Decadron, vitamin C, vitamin D3, and zinc. Objective - Vital Signs Vital signs: Vital Signs Temp 97.7 F 10/19/21 12:00 Pulse 62 10/19/21 12:00 Resp 18 10/19/21 14:00 BP 118/64 10/19/21 12:00 Pulse Ox 97 10/19/21 12:00 Intake & Output 10/18/21 10/19/21 10/19/21 18:59 06:59 18:59 Intake Total 1036 240 Output Total 3375 700 1999 Balance -5163 -658 -3197 Weight 102.8 kg Intake: IV 800 Oral 236 240 Output: Urine 3350 700 1999 Uretheral (Marino) 1050 Estimated Blood Loss 25 Other: Voiding Method Indwelling Catheter Indwelling Catheter Indwelling Catheter - Exam No acute distress, oriented 3. Nasal O2 at 4 L/m. Saturations are 97%. HEENT examination is grossly unremarkable. Neck supple. Full range of motion. No adenopathy thyromegaly or neck vein distention. Cardiovascular examination reveals regular rhythm rate. S1-S2 normal. No S3 or S4. No discernible murmur noted. Heart rate 62 bpm. Lungs reveal mostly clear breath sounds. A few crackles at the bases. Breath sounds equal bilaterally. Abdomen soft bowel sounds are heard. No masses or tenderness. Extremities reveal a right lhvqz-pao-tpev amputation. Skin is without rash or lesion. Neurologic examination is brief but nonfocal. - Labs CBC & Chem 7: 10/17/21 08:14 10/18/21 08:41 Assessment and Plan Assessment: Acute right lower extremity ischemia secondary to arterial thrombosis, status post right below the knee amputation. Today's postop day #4. The patient may end up having a right dkasy-hkt-jijj amputation, to be decided by vascular surgery. Status post right sqllu-btb-tdhd amputation, postop day #1. Acute hypoxemic respiratory failure secondary to coronavirus associated pneumonia. Hypercoagulable state and arterial thrombosis, secondary to coronavirus infection. Acute lactic acidosis secondary to limb ischemia. Acute kidney injury. Mental status changes, improved. Plan: Plan dated 10/18/2021. The patient will go back to the operating room today for either a revision of the right below the knee amputation, or a right wsfsn-ifp-nmca amputation. This to be decided by vascular surgery in the operating room. The patient remains on appropriate medications. The patient's on 3 L nasal cannula. The patient's getting saline at 100 mL an hour. Medications, labs, and x-rays are all reviewed. Prognosis is guarded. We will continue to follow and make recommendations where appropriate. Plan dated 10/19/2021. The patient appears to be doing well. The patient had a right omqhl-enx-fogh amputation performed yesterday by Dr. Marino. The patient is postop day #1. The patient is currently on 4 L nasal cannula. Saturations are 97%. The patient is receiving saline at 75 mL an hour. We will continue to follow make recommendations where appropriate. No new labs today. Medications and x-rays are reviewed. Time with Patient: Less than 30
--- NOTE | 2021-10-19 19:03 | P.PN ---
Progress Note - Text Progress Note Date: 10/19/21 Chief Complaint: Right leg pain This is a 66-year-old patient who follows Dr. Stefano Miguel. He presented to ER earlier today with a right calf pain. Symptoms have been coming on for about 3 weeks. Patient is also had decreased appetite for some time. Complaint of fe eling dry in the ER. Some shortness of breath. He did also had discoloration to the right leg for several days. Having pain in the calf. No chest pain. ER physician had called me thinking this was an arterial compromise. Dr. Marino from vascular was consulted. The patient down to the operating room. Patient was discovered to have occlusion of the superficial femoral artery down to the integrity of the leg. Left common femoral artery was accessed. Angiogram was done. And thrombolysis was started. Patient's currently getting TPN heparin drip. In the ICU. Patient is received pain medications and is rather lethargic. Not really able to give much of a history currently. According to the nurse doesn't Doppler in the left leg. Dopplers also present in the right leg up to the knee not below the knee. Patient tested positive for COVID in the ER. Patient was given EKOS with heparin and TPA infusion. October 13: ICU: Patient had theEKOS removed this afternoon. Patient was taken to the OR by Dr. Marino. Repeat angiogram did not show any blood flow below the right knee. Patient's mottling though has improved of the right leg. Walking just above the ankle. Patient has some sensations lower extremity. This point decision is to resume the IV heparin. Patient may still level of getting amputation depending on clinical course. October 14: Patient is being moved to the medical floor. Last night patient had altered mental status. Stat computed tomography scan negative for bleed. Likely delirious. Neurology consulted. Neuro checks. Cardiology consulted for medical clearance. Patient on IV heparin. Tender right leg. Some decrease in mottling. October 15: Patient is pending surgery this morning. Some pain in the right lower extremity. Had been on IV heparin. Breathing stable. Patient related today underwent right below-knee amputation for Dr. Marino. And a wound VAC was placed. October 16: Decreased appetite. Some pain present. On nasal cannula. Ordered incentive spirometry. October 17: Eating well. Close to 100%. Breathing On 4 L nasal cannula. Plan for patient to return to the OR tomorrow. Right leg wound VAC. Closure of wound versus above-knee amputation. Delirium better. Lopressor being added for blood pressure. IV heparin continuous October 18: Patient is delirium resolved yesterday. Saw the patient this morning. Going down to the operating room later today. On 3 L of nasal cannula. Pain control. Later today underwent right knee amputation. October 19: Some pain at the operative site. Oral intake good. No nausea vomiting. 4 L of nasal cannula. Review of systems: Was done for constitutional, cardiovascular, GI, pulmonary. relevant finding as above Active Medications Hydrocodone Bitart/Acetaminophen (Hydrocodone/Apap 5-325mg 1 Each Tab) 1 each PO Q4HR PRN PRN Reason: Moderate Pain Last Admin: 10/19/21 09:29 Dose: 1 each Documented by: Ascorbic Acid (Ascorbic Acid 500 Mg Tab) 500 mg PO BID [facility] Last Admin: 10/19/21 09:30 Dose: 500 mg Documented by: Aspirin (Aspirin 81 Mg) 81 mg PO BID [facility] Last Admin: 10/19/21 09:30 Dose: 81 mg Documented by: Cholecalciferol (Cholecalciferol 25 Mcg (1000 Iu) Tablet) 25 mcg PO DAILY [facility] [place] Last Admin: 10/19/21 09:29 Dose: 25 mcg Documented by: Dexamethasone (Dexamethasone 2 Mg Tab) 6 mg PO DAILY [facility] [place] Last Admin: 10/19/21 09:29 Dose: 6 mg Documented by: Folic Acid (Folic Acid 1 Mg Tab) 1 mg PO DAILY [facility] Last Admin: 10/19/21 09:29 Dose: 1 mg Documented by: Hydromorphone HCl (Hydromorphone 1 Mg/Ml 1 Ml Syringe) 1 mg IVP Q3HR PRN PRN Reason: Severe Pain Last Admin: 10/17/21 20:07 Dose: 1 mg Documented by: Hydromorphone HCl (Hydromorphone 0.5 Mg/0.5 Ml Syringe) 0.5 mg IVP Q3HR PRN PRN Reason: Moderate Pain Last Admin: 10/18/21 17:02 Dose: 0.5 mg Documented by: Lactated Ringer's (Lactated Ringers) 1,000 mls @ 20 mls/hr IV .Q24H [facility] Last Admin: 10/19/21 04:29 Dose: Not Given Documented by: Metoprolol Tartrate (Metoprolol Tartrate 25 Mg Tab) 25 mg PO BID [facility] [place] Last Admin: 10/19/21 09:30 Dose: 25 mg Documented by: Naloxone HCl (Naloxone 0.4 Mg/Ml 1 Ml Vial) 0.2 mg IV Q2M PRN PRN Reason: Opioid Reversal Ondansetron HCl (Ondansetron 4 Mg/2 Ml Vial) 4 mg IVP Q4HR PRN PRN Reason: Nausea And Vomiting Pantoprazole Sodium (Pantoprazole 40 Mg/10 Ml Vial) 40 mg IV DAILY [facility] Last Admin: 10/19/21 09:30 Dose: 40 mg Documented by: Zinc Sulfate (Zinc Sulfate 220 Mg Cap) 220 mg PO DAILY [facility] Last Admin: 10/19/21 09:29 Dose: 220 mg Documented by: Past medical history to include: Prostate disorder Social history: Patient started smoking as a teen and stopped in 1995. No alcohol. Lives alone. 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 Family history: Reviewed, noncontributory to presentation Physical examination: VITAL SIGNS: 98.5, 75, 18, 133.69, 97% on 4 L GENERAL: Laying in bed, awake, more comfortable LUNGS: Respiratory rate normal. PSYCH: AO 3, mood affect normal. EXTREMITY: Right below-knee amputation Rest of the exam as per nursing INVESTIGATIONS, reviewed in the clinical context: October 19: Potassium 3.9 AST 293 ALT 180 October 18: Potassium 3.9 creatinine 0.74 AST 293 ALT 180 October 17: WBC 19.5 hemoglobin 15 potassium 4.3 creatinine 0.75 AST 282 ALT 201 October 16: WBC 16.5 hemoglobin 13.4 potassium 4.1 creatinine 0.71 October 14: White count 7.3 hemoglobin 13.7 potassium 3.9 creatinine 0.82 AST 311 ALT 99 Computed tomography scan: Negative October 13: White count 9.8 hemoglobin 15.4 platelets 298 potassium 4.5 BUN 25 creatinine 1.04 AST 254 and ALT 113 Ultrasound: Limited exam. No obvious abnormality. Acute hepatitis panel: Negative White count 19.2 hemoglobin 18.9 platelets 511 2142 BUN 31 creatinine 1.40, repeat 1.19 Lactic acid 3.6 AST 407 ALT 108 Pro-calcitonin 0.14 Coronavirus [PCR]: Detected EKG tracing personally reviewed by me-normal sinus rhythm. Right bundle branch block. ST-T wave changes. PVCs. Assessment and plan: -This is a patient who presents with pain in the right calf which is going on for a few days progressively getting worse. Appears to have had acute on chronic arterial occlusion. Especially of the superficial femoral artery. Patient has aEKOS placed through the left groin. Receive TPN heparin. On October 13 repeat angiogram showed or circulation below the knee. IV heparin resumed. October 15 right below-knee amputation by Dr. Marino. Wound VAC. October 18: Patient underwent right above-knee amputation. -Acute on chronic PAD, as patient's symptoms came on since around September 26. aspirin, Lipitor. -Acute delirium.: Improved Computed tomography scan been negative. Seen by neurology -IV heparin monitoring: Discontinued. Follow PTT -Right bundle branch block pattern -Metabolic acidosis: Better Sodium bicarbonate by mouth -Acute kidney injury, possibly ATN, : Improved Received IV fluids. -Hepatitis, chronicity unknown Acute hepatitis panel: Negative. Repeat labs. On Lipitor. Hold Lipitor for now. We will resume when LFTs better -Acute hypoxic respiratory failure from COVID 19 Pulse ox was 89% on room air on presentation. dexamethasone. -Acute COVID 19 pneumonitis Vitamin C vitamin D. Zinc. Dexamethasone. Right above-knee amputation . Hold Lipitor. Follow LFTs. Oral patient doing better. Discussed with patient.
[2021-10-20] MEDS: HYDROcodone/APAP 5-325MG 1 EACH TAB PO PRN ×2 (03:16→09:30)
[2021-10-20 07:21] LABS: ALT 183 U/L (4-49); AST 105 U/L (17-59); African American GFR (CKD) >90 (>60 ml/min/1.73 sqM); Albumin 2.5 g/dL (3.5-5.0); Alkaline Phosphatase 164 U/L (38-126); Anion Gap 5 mmol/L; Blood Urea Nitrogen 16 mg/dL (9-20); Calcium 8.4 mg/dL (8.4-10.2); Carbon Dioxide 22 mmol/L (22-30); Chloride 107 mmol/L (98-107); Glucose 103 mg/dL (74-99); Non-African American GFR(CKD) >90 (>60 ml/min/1.73 sqM); Potassium 4.3 mmol/L (3.5-5.1); Sodium 134 mmol/L (137-145); Total Bilirubin 0.9 mg/dL (0.2-1.3); Total Protein 5.6 g/dL (6.3-8.2)
[2021-10-20] MEDS: LACTATED RINGERS 1,000 ML IV SCH (08:29)
[2021-10-20] MEDS: dexAMETHasone 2 MG TAB PO SCH (09:29)
[2021-10-20] MEDS: CHOLECALCIFEROL 25 MCG (1000 IU) TABLET PO SCH (09:30)
[2021-10-20] MEDS: FOLIC ACID 1 MG TAB PO SCH (09:30)
[2021-10-20] MEDS: METOPROLOL TARTRATE 25 MG TAB PO SCH (09:30)
[2021-10-20] MEDS: ZINC SULFATE 220 MG CAP PO SCH (09:30)
[2021-10-20] MEDS: PANTOPRAZOLE 40 MG/10 ML VIAL IV SCH (09:30)
[2021-10-20] MEDS: ASCORBIC ACID 500 MG TAB PO SCH (09:30)
[2021-10-20] MEDS: ASPIRIN 81 MG PO SCH (09:30)
--- NOTE | 2021-10-20 12:38 | P.PN ---
Subjective Progress Note Date: 10/20/21 The patient is postop day #2 for right cweaq-yfg-zuvw amputation. Pain remains well controlled. Been afebrile. Patient states physical therapy work with him yesterday. He still has a indwelling Jones catheter. Objective - Vital Signs Vital signs: Vital Signs Temp 97.5 F L 10/20/21 08:00 Pulse 88 10/20/21 08:00 Resp 18 10/20/21 08:00 BP 131/74 10/20/21 08:00 Pulse Ox 94 L 10/20/21 08:00 Intake & Output 10/19/21 10/20/21 10/20/21 18:59 06:59 18:59 Intake Total 240 125 Output Total 1999 Balance -1760 125 Intake: Oral 240 125 Output: Urine 1999 Other: Voiding Method Indwelling Catheter Indwelling Catheter Indwelling Catheter - Exam General appearance: The patient is alert, oriented, in no acute distress. HET: Head is normocephalic and atraumatic. Neck: Supple without lymphadenopathy. Trachea midline. Heart: S1 S2. Regular rate and rhythm. Lungs: No crackles or wheezes are heard. Abdomen: Soft, nontender, nondistended. Extremities: Right lower extremity xusmh-hlt-ypmt amputation stump with dressing clean dry and intact. Incision well approximated with elizabeth. Surrounding tissue is warm, pink. Left groin with ecchymosis and small palpable hematoma, and no tenderness to palpation. Left palpable dorsalis pedal pulse. Neurological: Alert. No focal deficits. - Labs CBC & Chem 7: 10/17/21 08:14 10/20/21 06:45 Labs: Abnormal Lab Results - Last 24 Hours (Table) 10/20/21 Range/Units 06:45 Sodium 134 L (137-145) mmol/L Glucose 103 H (74-99) mg/dL AST 105 H (17-59) U/L ALT 183 H (4-49) U/L Alkaline Phosphatase 164 H (38-126) U/L Total Protein 5.6 L (6.3-8.2) g/dL Albumin 2.5 L (3.5-5.0) g/dL Assessment and Plan Assessment: 1. Postop day #2 Right lower extremity yixsz-nlz-zsgr amputation 2. Right lower extremity ischemia 3. Covid Plan: 1. Diet as tolerated 2. Physical therapy and occupational therapy ordered, continue with evaluation and treatment 3. Dressing changed today, Adaptics and Kerlix applied with Tramaine wrap 4. Stump electrical and instrumentation manager and rigid dressing ordered, [employer] contacted per case managment 5. Continue incentive spirometer use 6. Discontinue jones catheter 7. Continue medical management per primary medicine team 8. Patient is cleared for discharge from vascular surgery once otherwise medically stable. The impression and plan of care has been dictated as directed. Dr. Jones I performed a history and examination of this patient, discussed the same with the dictator. I agree with the dictator's note ,documented as a scribe. Any additional findings or plans will be noted.
--- NOTE | 2021-10-20 13:21 | P.PN ---
Subjective Progress Note Date: 10/20/21 Principal diagnosis: Coronavirus pneumonia. 10/16/2021, the patient is being seen for a follow-up. Remains on oxygen at 4 L per minute. Underwent a below-knee position of the right lower extremity. The patient's right lower extremity is also connected to wound VAC. His main complaint is pain and the patient is receiving Dilaudid 1 mg every 3 hours on a when necessary basis for postsurgical pain. The patient remains on lactated Ringer at 20 mL an hour. He remains on Decadron 6 mg by mouth daily. Altered mentation. No respiratory distress. He was provided incentive spirometer. Is currently off IV heparin. His taken aspirin. Blood work from today shows a white cell count was 16.7 with hemoglobin of 13.4. Renal function is stable. Creatinine is 0.7. Sodium is at 137. 10/17/2021, the patient is being seen for a follow-up. He is a patient underwent a and addition of the right lower extremity. Vascular surgery is on the case. The patient had a wound VAC at the level of the right lower extremity stump. The flap was without any cyanosis. This was inspected by the vascular surgeon. The patient is going to go back to the operating room on 10/18/2021 for possible closure versus above-knee amputation at that time. Currently is on IV heparin.. Is under good control the patient's pain is around 4 out of 10 in severity. No nausea. No vomiting. No chest pain. No worsening shortness of breath. Remains in oxygen 4 L per minute nasal cannula. The patient is also on Decadron 6 mg IV every 24 hours. Progress note dated 10/18/2021. This is a 66-year-old male is again seen in room 354. The patient was going back to the operating room for either a amputation above the knee, of the right lower extremity, or closure of the flap on the right below the knee amputation. Dr. Marino was going to make that decision in the operating room. Currently, the patient's doing well otherwise. The patient's on saline at 100 mL an hour, and is on O2 at 3 L by nasal cannula. The patient did test positive for coronavirus. The patient remains on Decadron 6 mg daily. Lab data today includes a sodium 138, potassium 3.9, chlorides 104, CO2 23, anion gap 11, B1 14, creatinine 0.74. The patient's glucose is 151 AST to 93 ALT 180, and albumin 2.7. Progress note dated 10/19/2021. 66-year-old male, again seen in room 354. Currently, the patient is on 4 L nasal cannula. Receiving saline at 75 mL an hour. The patient appears to be doing relatively well. He had a right xcstg-pxk-wzxk amputation done yesterday by Dr. Marino. Today's postop day #1. No new labs today. No new x-rays today. The patient appears to be relatively stable. He denies any shortness of breath, cough, wheezing, or phlegm production. The patient remains on Decadron, vitamin C, vitamin D3, and zinc. Progress note dated 10/20/2021. 66-year-old male, again seen in room 354. The patient is currently on 4 L nasal cannula. The patient is status post right above the knee amputation. He is postop day #2. The patient currently remains on Decadron, vitamin C, vitamin D3, and zinc. He states that his breathing is stable. He denies any shortness of breath, cough, wheezing, or phlegm production. He also denies any chest pain or pressure. He's not receiving any IV fluids at this time. Today's labs include a sodium 134, potassium 4.3, chlorides 107, CO2 22, anion gap 5, BUN and creatinine were 16 and 0.7. AST 105 ALT 183 albumin 2.5. Objective - Vital Signs Vital signs: Vital Signs Temp 97.5 F L 10/20/21 08:00 Pulse 88 10/20/21 08:00 Resp 18 10/20/21 08:00 BP 131/74 10/20/21 08:00 Pulse Ox 94 L 10/20/21 08:00 Intake & Output 10/19/21 10/20/21 10/20/21 18:59 06:59 18:59 Intake Total 240 125 Output Total 1999 Balance -1760 125 Intake: Oral 240 125 Output: Urine 1999 Other: Voiding Method Indwelling Catheter Indwelling Catheter Indwelling Catheter - Exam No acute distress, oriented 3. Nasal O2 at 4 L/m. Saturations are 95%. HEENT examination is grossly unremarkable. Neck supple. Full range of motion. No adenopathy thyromegaly or neck vein distention. Cardiovascular examination reveals regular rhythm rate. S1-S2 normal. No S3 or S4. No discernible murmur noted. Heart rate 88 bpm. Lungs reveal mostly clear breath sounds. A few crackles at the bases. Breath sounds equal bilaterally. Abdomen soft bowel sounds are heard. No masses or tenderness. Extremities reveal a right ygczv-pap-lnpv amputation. Skin is without rash or lesion. Neurologic examination is brief but nonfocal. - Labs CBC & Chem 7: 10/17/21 08:14 10/20/21 06:45 Labs: Abnormal Lab Results - Last 24 Hours (Table) 10/20/21 Range/Units 06:45 Sodium 134 L (137-145) mmol/L Glucose 103 H (74-99) mg/dL AST 105 H (17-59) U/L ALT 183 H (4-49) U/L Alkaline Phosphatase 164 H (38-126) U/L Total Protein 5.6 L (6.3-8.2) g/dL Albumin 2.5 L (3.5-5.0) g/dL Assessment and Plan Assessment: Acute right lower extremity ischemia secondary to arterial thrombosis, status post right below the knee amputation. Today's postop day #5. The patient may end up having a right dcwoi-cwv-lnup amputation, to be decided by vascular surgery. Status post right aamps-ylp-djhf amputation, postop day #2. Acute hypoxemic respiratory failure secondary to coronavirus associated pneumonia. Hypercoagulable state and arterial thrombosis, secondary to coronavirus infection. Acute lactic acidosis secondary to limb ischemia. Acute kidney injury. Mental status changes, improved. Plan: Plan dated 10/18/2021. The patient will go back to the operating room today for either a revision of the right below the knee amputation, or a right uiako-ohi-udin amputation. This to be decided by vascular surgery in the operating room. The patient remains on appropriate medications. The patient's on 3 L nasal cannula. The patient's getting saline at 100 mL an hour. Medications, labs, and x-rays are all reviewed. Prognosis is guarded. We will continue to follow and make recommendations where appropriate. Plan dated 10/19/2021. The patient appears to be doing well. The patient had a right tbsvv-loa-ttfg amputation performed yesterday by Dr. Marino. The patient is postop day #1. The patient is currently on 4 L nasal cannula. Saturations are 97%. The patient is receiving saline at 75 mL an hour. We will continue to follow make recommendations where appropriate. No new labs today. Medications and x-rays are reviewed. Plan dated 10/20/2021. The patient is doing well. The patient is postop day #2, status post a right ogvhb-zmr-czum amputation. The surgery was done by Dr. Marino. The patient is on 4 L nasal cannula. Saturations are excellent. The IV fluids have been discontinued. The labs are reviewed. We will continue to follow and make recommendations where appropriate. Prognosis is guarded. The patient could be potentially considered for discharge in the next 24-48 hours. Time with Patient: Less than 30
[2021-10-20 13:48] VITALS: BP 122/71; PULSE 78; RESP 14; TEMP 98
--- NOTE | 2021-10-20 15:00 | P.DS ---
Providers Date of admission: 10/12/21 11:33 Expected date of discharge: 10/20/21 Attending physician: Gerard Cooper Consults: 10/12/21 11:29 Consult Physician Stat Consulting Provider: April Jones Consult Reason/Comments: arterial insufficency Do you want consulting provider notified?: Already Contacted Consult Physician Urgent Consulting Provider: Lin Zuleta Consult Reason/Comments: covid Do you want consulting provider notified?: Yes 10/14/21 02:26 Consult Physician Routine Consulting Provider: Gilson Germain Consult Reason/Comments: New onset of confusion Do you want consulting provider notified?: Yes, Notify in am Primary care physician: [facility] Hospital Course: Chief Complaint: Right leg pain This is a 66-year-old patient who follows Dr. Stefano Miguel. He presented to ER earlier today with a right calf pain. Symptoms have been coming on for about 3 weeks. Patient is also had decreased appetite for some time. Complaint of feeling dry in the ER. Some shortness of breath. He did also had discoloration to the right leg for several days. Having pain in the calf. No chest pain. ER physician had called me thinking this was an arterial compromise. Dr. Jones from vascular was consulted. The patient down to the operating room. Patient was discovered to have occlusion of the superficial femoral artery down to the integrity of the leg. Left common femoral artery was accessed. Angiogram was done. And thrombolysis was started. Patient's currently getting TPN heparin drip. In the ICU. Patient is received pain medications and is rather lethargic. Not really able to give much of a history currently. According to the nurse doesn't Doppler in the left leg. Dopplers also present in the right leg up to the knee not below the knee. Patient tested positive for COVID in the ER. Patient was given EKOS with heparin and TPA infusion. October 13: ICU: Patient had theEKOS removed this afternoon. Patient was taken to the OR by Dr. Jones. Repeat angiogram did not show any blood flow below the right knee. Patient's mottling though has improved of the right leg. Walking just above the ankle. Patient has some sensations lower extremity. This point decision is to resume the IV heparin. Patient may still level of getting amputation depending on clinical course. October 14: Patient is being moved to the medical floor. Last night patient had altered mental status. Stat computed tomography scan negative for bleed. Likely delirious. Neurology consulted. Neuro checks. Cardiology consulted for medical clearance. Patient on IV heparin. Tender right leg. Some decrease in mottling. October 15: Patient is pending surgery this morning. Some pain in the right lower extremity. Had been on IV heparin. Breathing stable. Patient related today underwent right below-knee amputation for Dr. Jones. And a wound VAC was placed. October 16: Decreased appetite. Some pain present. On nasal cannula. Ordered incentive spirometry. October 17: Eating well. Close to 100%. Breathing On 4 L nasal cannula. Plan for patient to return to the OR tomorrow. Right leg wound VAC. Closure of wound versus above-knee amputation. Delirium better. Lopressor being added for blood pressure. IV heparin continuous October 18: Patient is delirium resolved yesterday. Saw the patient this morning. Going down to the operating room later today. On 3 L of nasal cannula. Pain control. Later today underwent right knee amputation. October 19: Some pain at the operative site. Oral intake good. No nausea vomiting. 4 L of nasal cannula. October 20: Eating well. Comfortable. Pulse ox 94%. Pain control. His stump medical assistant float placed on the right stump. [facility] contacted by case management. Patient has been accepted at rehab. Discussed with the patient and the nurse. Patient be discharged on a tapering dose of steroids and also owns xarelto 2.5 twice a day. Oxygen to be titrated to keep the pulse ox above 92%. Patient's Lipitor has been held because of increased LFTs. Repeat LFTs in 72 hours. Lipitor to be resumed when LFTs are improved Discussion and discharge planning more than 35 minutes Consultation: Dr. Jones from vascular Dr. Liu and partners from pulmonary Dr. Marcus from neurology Past medical history to include: Prostate disorder Social history: Patient started smoking as a teen and stopped in 1995. No alcohol. Lives alone. 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 Family history: Reviewed, noncontributory to presentation Physical examination: VITAL SIGNS: 98, 78, 14, 122/71, 94% on 4 L GENERAL: Reclining awake, comfortable LUNGS: Respiratory rate normal. PSYCH: AO 3, mood affect normal. EXTREMITY: Right below-knee amputation, with stump medical assistant float in place Rest of the exam as per nursing and pulmonary INVESTIGATIONS, reviewed in the clinical context: October 20: Sodium 134 potassium 4.3 creatinine 0.7 AST 105 ALT 183 October 19: Potassium 3.9 AST 293 ALT 180 October 18: Potassium 3.9 creatinine 0.74 AST 293 ALT 180 October 17: WBC 19.5 hemoglobin 15 potassium 4.3 creatinine 0.75 AST 282 ALT 201 October 16: WBC 16.5 hemoglobin 13.4 potassium 4.1 creatinine 0.71 October 14: White count 7.3 hemoglobin 13.7 potassium 3.9 creatinine 0.82 AST 311 ALT 99 Computed tomography scan: Negative October 13: White count 9.8 hemoglobin 15.4 platelets 298 potassium 4.5 BUN 25 creatinine 1.04 AST 254 and ALT 113 Ultrasound: Limited exam. No obvious abnormality. Acute hepatitis panel: Negative White count 19.2 hemoglobin 18.9 platelets 511 2142 BUN 31 creatinine 1.40, repeat 1.19 Lactic acid 3.6 AST 407 ALT 108 Pro-calcitonin 0.14 Coronavirus [PCR]: Detected EKG tracing personally reviewed by me-normal sinus rhythm. Right bundle branch block. ST-T wave changes. PVCs. Assessment and plan: -This is a patient who presents with pain in the right calf which is going on for a few days progressively getting worse. Appears to have had acute on chroni c arterial occlusion. Especially of the superficial femoral artery. Patient has aEKOS placed through the left groin. Receive TPN heparin. On October 13 repeat angiogram showed or circulation below the knee. IV heparin resumed. October 15 right below-knee amputation by Dr. Jones. Wound VAC. October 18: Patient underwent right above-knee amputation. -Acute on chronic PAD, as patient's symptoms came on since around September 26. aspirin, Lipitor-to be resumed when LFTs have come down. Xarelto 2.5 mg twice a day. -Acute delirium.: Improved Computed tomography scan been negative. Seen by neurology -IV heparin monitoring: Discontinued. Follow PTT -Right bundle branch block pattern -Metabolic acidosis: Better Sodium bicarbonate by mouth -Acute kidney injury, possibly ATN, : Improved Received IV fluids. -Hepatitis, chronicity unknown Acute hepatitis panel: Negative. Repeat labs. On Lipitor. Hold Lipitor for now. resume when LFTs better -Acute hypoxic respiratory failure from COVID 19 Pulse ox was 89% on room air on presentation. dexamethasone. 4 L nasal cannula. -Acute COVID 19 pneumonitis Vitamin C vitamin D. Zinc. Dexamethasone Prednisone taper Disposition: Rehab [facility] Labs: CBC, CMP: 3 days Plan - Discharge Summary Discharge Rx Participant: No New Discharge Prescriptions: New Metoprolol Tartrate [Lopressor] 25 mg PO BID tab predniSONE 10 mg PO DAILY #30 tab Ascorbic Acid [Vitamin C] 500 mg PO BID tab Cholecalciferol [Vitamin D3 (125 Mcg = 5000 Iu)] 125 mcg PO DAILY #30 tablet HYDROcodone/APAP 5-325MG [Shobonier 5-325] 1 each PO Q4HR PRN 3 Days #18 tab PRN Reason: Moderate Pain Zinc Sulfate [Orazinc] 220 mg PO DAILY cap Rivaroxaban [Xarelto] 2.5 mg PO BID #60 tab Continue Otc Allergy Med (Unknown) 1 tab PO BID Multivit-Min/Folic/Vit K/Lycop [Men's Multivitamin Tablet] 1 tab PO DAILY Discontinued Calcium Carbonate [Tums] 500 - 1,000 mg PO QID PRN PRN Reason: acid control Discharge Medication List Multivit-Min/Folic/Vit K/Lycop [Men's Multivitamin Tablet] 1 tab PO DAILY 10/12/21 [History] Otc Allergy Med (Unknown) 1 tab PO BID 10/12/21 [History] Ascorbic Acid [Vitamin C] 500 mg PO BID tab 10/20/21 [Rx] Cholecalciferol [Vitamin D3 (125 Mcg = 5000 Iu)] 125 mcg PO DAILY #30 tablet 10/20/21 [Rx] HYDROcodone/APAP 5-325MG [Shobonier 5-325] 1 each PO Q4HR PRN 3 Days #18 tab 10/20/21 [Rx] Metoprolol Tartrate [Lopressor] 25 mg PO BID tab 10/20/21 [Rx] Rivaroxaban [Xarelto] 2.5 mg PO BID #60 tab 10/20/21 [Rx] Zinc Sulfate [Orazinc] 220 mg PO DAILY cap 10/20/21 [Rx] predniSONE 10 mg PO DAILY #30 tab 10/20/21 [Rx] Follow up Appointment(s)/Referral(s): Israel Wolf DO [STAFF PHYSICIAN] - 1-2 Days Stefano Rice DO [Primary Care Provider] - As Needed Activity/Diet/Wound Care/Special Instructions: Stump medical assistant float and rigid dressing to be provided by [facility] - [phone] post-op dc orders per dr jones
== END 2021-10-20 15:46 | DRG 239 ==
LOC: EC 10:03 → 3SCARD 11:33 → 2SICU 11:41 → 3SCARD 10-13 21:51
PROVIDERS: ADMIT Hospitalist; ATTEND Hospitalist
PROC: B41G1ZZ Fluoroscopy of Left Lower Extremity Arteries using Low Osmolar Contrast (ICD-10-PCS; 2021-10-12)
PROC: B41F1ZZ Fluoroscopy of Right Lower Extremity Arteries using Low Osmolar Contrast (ICD-10-PCS; 2021-10-12)
PROC: 04FK3Z0 Fragmentation of Right Femoral Artery, Percutaneous Approach, Ultrasonic (ICD-10-PCS; 2021-10-12 14:50)
PROC: B41G1ZZ Fluoroscopy of Left Lower Extremity Arteries using Low Osmolar Contrast (ICD-10-PCS; 2021-10-13)
PROC: B41F1ZZ Fluoroscopy of Right Lower Extremity Arteries using Low Osmolar Contrast (ICD-10-PCS; 2021-10-13)
PROC: 0Y6H0Z1 Detachment at Right Lower Leg, High, Open Approach (ICD-10-PCS; principal; 2021-10-15 09:30)
PROC: 0Y6C0Z2 Detachment at Right Upper Leg, Mid, Open Approach (ICD-10-PCS; 2021-10-18)
DX: I70.221 Atherosclerosis of native arteries of extremities with rest pain, right leg (principal); U07.1 COVID-19; J12.82 Pneumonia due to coronavirus disease 2019; J96.01 Acute respiratory failure with hypoxia; D68.59 Other primary thrombophilia; E87.2 Acidosis; I74.3 Embolism and thrombosis of arteries of the lower extremities; N17.9 Acute kidney failure, unspecified; F17.200 Nicotine dependence, unspecified, uncomplicated; F22 Delusional disorders; I10 Essential (primary) hypertension; I45.10 Unspecified right bundle-branch block; K75.9 Inflammatory liver disease, unspecified; Z79.01 Long term (current) use of anticoagulants; Z79.82 Long term (current) use of aspirin; Z79.899 Other long term (current) drug therapy; M79.89 Other specified soft tissue disorders
CPT/HCPCS: 36247; 36415; 37211; 37214; 70450; 71046; 75710; 76705; 76937; 80048; 80053; 80074; 82140; 82607; 82746; 83605; 83880; 84145; 84443; 84484; 85025; 85027; 85379; 85384; 85610; 85730; 86850; 86900; 86901; 87502; 87635; 93005; 93308; 96361; 96374; 99291